=== PATIENT | female | born 1945 | race Caucasian/White ===

== ENCOUNTER 2018-10-06 16:28 | Inpatient (IN) | payer MEDICARE, BC ==
[2018-10-06] MEDS ORDERED: Piperacillin/Tazobactam 3.375 GM in Sodium Chloride 0.9% 50 ML IV ONE (17:15)
[2018-10-06] MEDS ORDERED: Rocuronium 50 MG/5 ML Vial IV ONE (18:00)
[2018-10-06] MEDS ORDERED: Succinylcholine 200 MG/10 ML MDV IV ONE (18:00)
[2018-10-06] MEDS ORDERED: Ketamine 500 mg/10 ML MDV IV ONE (18:00)
[2018-10-06] MEDS ORDERED: Midazolam 1 MG/ML 2 ML SDV IV ONE (18:00)
[2018-10-06] MEDS ORDERED: Propofol 200 MG/20 ML SDV IV ONE (18:00)
[2018-10-06] MEDS ORDERED: Lidocaine 2% 100 MG/5 ML Syringe IVPUSH ONE (18:00)
[2018-10-06] MEDS ORDERED: Ondansetron 4 MG/2 ML SDV IVPUSH ONE (18:00)
[2018-10-06] MEDS ORDERED: Sugammadex Sodium 200 MG/2 ML VIAL IV ONE (18:00)
[2018-10-06] MEDS ORDERED: Dexmedetomidine 200 MCG/2 ML SDV IV ONE (18:00)
[2018-10-06] MEDS ORDERED: Lactated Ringers 1,000 ML IV ONE (18:00)
[2018-10-06] MEDS ORDERED: Ketorolac 30 MG/ML SDV IVPUSH ONE (18:00)
[2018-10-06] MEDS ORDERED: fentaNYL 100 MCG/2 ML SDV IV ONE (18:00)
--- NOTE | 2018-10-06 18:06 | PREOP ---
ADMISSION DATE: 10/06/2018 HISTORY OF PRESENT ILLNESS: This 73-year-old female was seen in the emergency room at the request of Dunia Pemberton, who was seeing her in Urgent Care today. The patient presents with severe abdominal pain and not feeling well for the past few days. She was sent over for CT scan of the abdomen and was found to have an incarcerated left inguinal hernia with evidence of small bowel obstruction and ascites. I had her sent to the emergency room for further evaluation. It was also noted on the CT scan that she does have a suspicious spiculated lesion in her left lung that will need to be evaluated in the future. The patient states that she did have some diarrhea 4 or 5 days ago and 4 days ago started having some vomiting. She has not eaten since that time and only had a milkshake yesterday. Has not been making much urine. Denies fever, sweats, or chills. Last bowel movement was a few days ago. She complains of diffuse abdominal pain. She is on chronic narcotics, so it is difficult to assess her pain. PAST MEDICAL HISTORY: Reviewed and long and complicated. She has nonhealing leg ulcers from peripheral vascular disease and vasculitis. She does smoke. She has stents in her right femoral artery. She is on a COAT opioid agreement plan because of her chronic pains. She is also treated for rheumatoid arthritis and cervical myelopathy. MEDICATIONS: Reviewed. She does take: 1. Prednisone 10 mg daily. 2. Methotrexate in addition to many other medications. ALLERGIES: Medical allergies are none. REVIEW OF SYSTEMS: GENERAL: The patient denies fever, sweats, or chills. GASTROINTESTINAL: As above. GENITOURINARY: Denies any urinary symptoms. MUSCULOSKELETAL: Chronic pain in her legs as noted above. She is unable to have sequential compression stockings placed in the perioperative period and will likely start Lovenox tomorrow. PHYSICAL EXAMINATION: GENERAL: Reveals a pleasant lady who appears chronically ill, but in no acute distress. Her skin color is slightly dusky. VITAL SIGNS: Her oxygen saturation is good. Vitals are good. She is afebrile. LUNGS: Clear, but distant. HEART: Regular rate and rhythm. ABDOMEN: Soft and flat, but when I try to push in her left inguinal region, where there is a bulging, she has exquisite tenderness, and I am unable to try to reduce this. I suspect this may be ischemic or necrotic since it has been probably there for at least 3 to 4 days. ASSESSMENT: Small bowel obstruction secondary to incarcerated left inguinal hernia. PLAN: Findings are reviewed with the patient and recommend proceeding with surgery immediately since I am concerned about ischemic or necrotic small bowel. I will attempt this through an inguinal incision to check the viability of the bowel. This may require laparotomy with bowel resection. The patient is understanding and consents to proceed. She understands that she is high risk because of her multiple medical problems and the risks and complications of bleeding, infection, anesthesia, cardiopulmonary issues, prolonged ventilation, anastomotic leakage, and incision healing problems were all reviewed and informed consent obtained. /[id number] GIORGIO/CAROLINE
--- NOTE | 2018-10-06 19:37 | PCM.OPNOTE ---
- General Post-Op/Procedure Note Date of Surgery/Procedure: 10/06/18 Operative Procedure(s): L Femoral Hernia Repair with mesh, incarcerated Findings: Dark beefy loop of small bowel Pre Op Diagnosis: SBO secondary to incarcerated ing hernia Post-Op Diagnosis: Same Anesthesia Technique: General ET Tube Primary Surgeon: Zhao Sheridan Anesthesia Provider: Sierra Munoz EBL in mLs: 10 Complications: None Condition: Good
[2018-10-06] MEDS: Lactated Ringers 1,000 ML IV SCH (21:05)
[2018-10-06] MEDS ORDERED: Enoxaparin 30 MG/0.3 ML Syringe ONE (21:57)
[2018-10-06] MEDS ORDERED: Piperacillin/Tazobactam 3.375 GM in Sodium Chloride 0.9% 50 ML IV SCH (23:00)
[2018-10-07] MEDS: Acetaminophen/HYDROcodone 325-5 MG Tab PO PRN ×5 (00:18→23:45)
[2018-10-07] MEDS: HYDROmorphone 2 MG/ML SDV IVPUSH PRN ×2 (00:47→05:21)
[2018-10-07] MEDS: Lactated Ringers 1,000 ML IV SCH ×2 (05:21→13:51)
--- NOTE | 2018-10-07 08:08 | OR ---
DATE OF OPERATION: 10/06/2018 SURGEON: Zhao Sheridan MD PREOPERATIVE DIAGNOSIS: Small-bowel obstruction secondary to an incarcerated left inguinal hernia. POSTOPERATIVE DIAGNOSIS: Small-bowel obstruction secondary to an incarcerated left femoral hernia. PROCEDURE: Left femoral hernia repair with mesh and reduction of strangulated hernia. ANESTHESIA: General. PROCEDURE IN DETAIL: The patient was brought to the operating room, where general endotracheal anesthesia was administered. The abdomen was prepped with ChloraPrep and draped sterilely. A time-out was performed. A left inguinal incision was made above the inguinal ligament and extended through the subcutaneous tissue. External fascia was identified and opened in line with the external ring. At that time, it became evident that the hernia was protruding below the inguinal ligament. Therefore, dissection continued on the femoral side of the ligament, and a 3 cm diameter hernia was dissected free from the surrounding subcutaneous tissue. I was able to get this to approximately 2.5 cm in size and then opened up the inguinal ligament and pushed the hernia and contents on the cephalad side for easier work. I did open the hernia sac, and a loop of small bowel with ascites fluid was present. This was beefy red. 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 There was no evidence of necrosis. Therefore, the small bowel contents were reduced back into the peritoneal cavity. 200 mL of clear yellowish ascites fluid was suctioned from the pelvis. The hernia sac was suture-ligated with 2-0 Vicryl suture ligature and the excess sac transected. A hernia repair was then done by cutting a piece of polypropylene mesh to approximately 2 x 4 inches. This was secured to the pubic tubercle with 0 Prolene. Several more interrupted sutures were used to secure the inferior edge to Primo's ligament. A transition stitch was made to the shelving edge of Poupart's ligament just medial to the femoral vein. After the inferior side was secured, the upper side was secured to the muscle, providing a tension-free repair. Excess mesh was trimmed and tucked beneath the external fascia. The ilioinguinal nerve had been identified, retracted cephalad, and protected during the procedure and was placed over the mesh without any tension. External fascia was closed with running 2-0 Vicryl. Subcutaneous tissue was irrigated and reapproximated with 4-0 Vicryl and skin closed with a running 4-0 Vicryl subcuticular suture. Benzoin and Steri-Strips were placed and a sterile dressing applied. The patient tolerated the procedure well. Estimated blood loss was 10 mL. She returned to Postanesthesia in stable condition. /[id number] GIORGIO/CAROLINE
--- NOTE | 2018-10-07 10:49 | PCM.SURGPN ---
- General Info Date of Service: 10/07/18 POD#: 1 Functional Status: Reports: Pain Controlled - Review of Systems General: Reports: No Symptoms Pulmonary: Reports: No Symptoms Gastrointestinal: Reports: Flatus. Denies: Abdominal Pain, Nausea, Vomiting - Patient Data Vitals - Most Recent: Last Vital Signs Temp 98.6 F 10/07/18 04:00 Pulse 87 10/07/18 04:00 Resp 17 10/07/18 04:00 BP 134/78 10/07/18 04:00 Pulse Ox 90 L 10/07/18 04:00 Weight - Most Recent: 43.091 kg I&O - Last 24 Hours: Intake & Output 10/06/18 10/07/18 10/07/18 22:59 06:59 14:59 Output Total 200 Balance -200 Lab Results Last 24 Hrs: Laboratory Results - last 24 hr 10/06/18 10/06/18 10/07/18 Range/Units 16:50 16:50 06:30 WBC 13.0 H (4.5-12.0) X10-3/uL RBC 4.42 (3.23-5.20) x10(6)uL Hgb 13.6 (11.5-15.5) g/dL Hct 40.6 (30.0-51.3) % MCV 92.0 (80-96) fL MCH 30.7 (27.7-33.6) pg MCHC 33.4 (32.2-35.4) g/dL RDW 13.5 (11.5-15.5) % Plt Count 510 H (125-369) X10(3)uL MPV 7.1 L (7.4-10.4) fL Add Manual Diff Yes Neutrophils % (Manual) 90 H (46-82) % Lymphocytes % (Manual) 5 L (13-37) % Monocytes % (Manual) 5 (4-12) % Sodium 137 138 (135-145) mmol/L Potassium 4.3 4.0 (3.5-5.3) mmol/L Chloride 97 L 100 (100-110) mmol/L Carbon Dioxide 31 30 (21-32) mmol/L BUN 17 15 (7-18) mg/dL Creatinine 0.6 0.6 (0.55-1.02) mg/dL Est Cr Clr Drug Dosing TNP 57.65 Estimated GFR (MDRD) > 60 > 60 (>60) BUN/Creatinine Ratio 28.3 H 25.0 H (9-20) Glucose 103 83 (80-116) mg/dL Calcium 9.3 8.8 (8.6-10.2) mg/dL Total Bilirubin 0.4 (0.1-1.3) mg/dL AST 16 (5-25) IU/L ALT 15 (12-36) U/L Alkaline Phosphatase 74 (56-112) IU/L Total Protein 6.8 (6.0-8.0) g/dL Albumin 2.7 L (3.2-4.6) g/dL Globulin 4.1 g/dL Albumin/Globulin Ratio 0.7 Med Orders - Current: Current Medications Hydrocodone Bitart/Acetaminophen ([place] 325-5 Mg) 1 tab PO Q4H PRN PRN Reason: Pain (mild 1-3) Last Admin: 10/07/18 06:30 Dose: 1 tab Enoxaparin Sodium (Lovenox) 30 mg SUBCUT Q24H HERBIE Hydromorphone HCl (Dilaudid) 1 mg IVPUSH Q1H PRN PRN Reason: Pain (moderate 4-6) Last Admin: 10/07/18 05:21 Dose: 1 mg Lactated Ringer's (Ringers, Lactated) 1,000 mls @ 50 mls/hr IV ASDIRECTED HERBIE Last Admin: 10/07/18 05:21 Dose: 125 mls/hr Discontinued Medications Enoxaparin Sodium (Lovenox) Confirm Administered Dose 30 mg .ROUTE .STK-MED ONE Stop: 10/06/18 21:58 Last Admin: 10/06/18 23:46 Dose: Not Given Piperacillin Sod/Tazobactam (Sod 3.375 gm/ Sodium Chloride) 50 mls @ 100 mls/ hr IV Q6H HERBIE Piperacillin Sod/Tazobactam (Sod 3.375 gm/ Sodium Chloride) 50 mls @ 100 mls/ hr IV ONETIME ONE Stop: 10/06/18 17:44 Last Admin: 10/06/18 17:47 Dose: 100 mls/hr - Exam Wound/Incisions: Dressing Dry and Intact GI/Abdominal Exam: Soft, Non-Tender - Problem List Review Problem List Initiated/Reviewed/Updated: Yes - My Orders Last 24 Hours: Active Orders 24 hr Category Date Time Status Patient Status [ADT] Routine ADT 10/06/18 19:37 Active Oxygen Therapy [RC] PRN Care 10/06/18 19:37 Active Oxygen Therapy [RC] PRN Care 10/06/18 19:39 Active RT Incentive Spirometry [RC] Q2HWA Care 10/06/18 19:39 Active Remove [place] Catheter [Urinary Catheter Removal] [RC] Care 10/07/18 07:59 Active Per Unit Routine Up With Assistance [RC] ASDIRECTED Care 10/06/18 19:39 Active Vital Signs [RC] PER UNIT ROUTINE Care 10/06/18 19:39 Active Vital Signs [RC] Q4H Care 10/06/18 19:37 Active Clear Liquid Diet [DIET] Diet 10/07/18 Dinner Ordered Nothing Per Oral Diet [DIET] Diet 10/07/18 Breakfast Active Acetaminophen/HYDROcodone [[place] 325-5 MG] Med 10/06/18 19:39 Active 1 tab PO Q4H PRN Enoxaparin [Lovenox] Med 10/07/18 20:00 Active 30 mg SUBCUT Q24H HYDROmorphone [Dilaudid] Med 10/06/18 19:39 Active 1 mg IVPUSH Q1H PRN Lactated Ringers [Ringers, Lactated] 1,000 ml Med 10/06/18 19:45 Active IV ASDIRECTED Resuscitation Status Routine Resus Stat 10/06/18 19:37 Ordered Medication Orders Hydrocodone Bitart/Acetaminophen ([place] 325-5 Mg) 1 tab PO Q4H PRN PRN Reason: Pain (mild 1-3) Last Admin: 10/07/18 06:30 Dose: 1 tab Admin: 10/07/18 00:18 Dose: 1 tab Enoxaparin Sodium (Lovenox) 30 mg SUBCUT Q24H HERBIE Hydromorphone HCl (Dilaudid) 1 mg IVPUSH Q1H PRN PRN Reason: Pain (moderate 4-6) Last Admin: 10/07/18 05:21 Dose: 1 mg Admin: 10/07/18 00:47 Dose: 1 mg Lactated Ringer's (Ringers, Lactated) 1,000 mls @ 50 mls/hr IV ASDIRECTED HERBIE Last Admin: 10/07/18 05:21 Dose: 125 mls/hr Infusion: 10/07/18 05:05 Dose: 125 mls/hr Admin: 10/06/18 21:05 Dose: 125 mls/hr - Assessment Assessment (Free Text/Narrative):: Doing well - Plan Plan (Free Text/Narrative):: Start Clear Liquids D/C medina
[2018-10-07] MEDS ORDERED: Nicotine 21 MG/24 Hr Patch TRDERM SCH (12:30)
[2018-10-07] MEDS: Nicotine 14 MG/24 Hr Patch TRDERM SCH (13:39)
[2018-10-07] MEDS ORDERED: Enoxaparin 30 MG/0.3 ML Syringe SUBCUT SCH (20:00)
[2018-10-08] MEDS: Acetaminophen/HYDROcodone 325-5 MG Tab PO PRN ×4 (04:00→16:50)
[2018-10-08] MEDS: Nicotine 14 MG/24 Hr Patch TRDERM SCH (08:09)
[2018-10-08] MEDS ORDERED: Sodium Chloride 0.9% 10 ML Syringe FLUSH PRN (08:40)
--- NOTE | 2018-10-08 15:34 | PCM.SURGPN ---
- General Info Date of Service: 10/08/18 POD#: 2 Functional Status: Reports: Pain Controlled, Tolerating Diet, Ambulating, Urinating - Review of Systems General: Reports: No Symptoms Cardiovascular: Reports: No Symptoms Gastrointestinal: Reports: No Symptoms Genitourinary: Reports: No Symptoms - Patient Data Vitals - Most Recent: Last Vital Signs Temp 98.1 F 10/08/18 12:00 Pulse 88 10/08/18 12:00 Resp 18 10/08/18 12:00 BP 142/85 H 10/08/18 12:00 Pulse Ox 93 L 10/08/18 12:00 Weight - Most Recent: 43.091 kg I&O - Last 24 Hours: Intake & Output 10/08/18 10/08/18 10/08/18 06:59 14:59 22:59 Intake Total 440 167 Output Total 250 Balance 190 167 Med Orders - Current: Current Medications Hydrocodone Bitart/Acetaminophen ([place] 325-5 Mg) 1 tab PO Q4H PRN PRN Reason: Pain (mild 1-3) Last Admin: 10/08/18 12:23 Dose: 1 tab Enoxaparin Sodium (Lovenox) 30 mg SUBCUT Q24H HERBIE Last Admin: 10/07/18 21:00 Dose: 30 mg Hydromorphone HCl (Dilaudid) 1 mg IVPUSH Q1H PRN PRN Reason: Pain (moderate 4-6) Last Admin: 10/07/18 05:21 Dose: 1 mg Nicotine (Habitrol) 14 mg TRDERM DAILY [facility] Last Admin: 10/08/18 08:09 Dose: 14 mg Sodium Chloride (Saline Flush) 10 ml FLUSH ASDIRECTED PRN PRN Reason: flush Discontinued Medications Enoxaparin Sodium (Lovenox) Confirm Administered Dose 30 mg .ROUTE .STK-MED ONE Stop: 10/06/18 21:58 Last Admin: 10/06/18 23:46 Dose: Not Given Piperacillin Sod/Tazobactam (Sod 3.375 gm/ Sodium Chloride) 50 mls @ 100 mls/ hr IV Q6H HERBIE Piperacillin Sod/Tazobactam (Sod 3.375 gm/ Sodium Chloride) 50 mls @ 100 mls/ hr IV ONETIME ONE Stop: 10/06/18 17:44 Last Admin: 10/06/18 17:47 Dose: 100 mls/hr Lactated Ringer's (Ringers, Lactated) 1,000 mls @ 50 mls/hr IV ASDIRECTED [facility] Last Admin: 10/07/18 13:51 Dose: 125 mls/hr Nicotine (Habitrol) 21 mg TRDERM DAILY [facility] Last Admin: 10/07/18 12:58 Dose: Not Given - Exam Wound/Incisions: Healing Well, Dressing Dry and Intact GI/Abdominal Exam: Normal Bowel Sounds, Soft, Non-Tender - Problem List Review Problem List Initiated/Reviewed/Updated: Yes - My Orders Last 24 Hours: Active Orders 24 hr Category Date Time Status Clear Liquid Diet [DIET] Diet 10/07/18 Dinner Active Regular Diet [DIET] Diet 10/08/18 Lunch Active Enoxaparin [Lovenox] Med 10/07/18 20:00 Active 30 mg SUBCUT Q24H Sodium Chloride 0.9% [Saline Flush] Med 10/08/18 08:40 Active 10 ml FLUSH ASDIRECTED PRN Medication Orders Hydrocodone Bitart/Acetaminophen ([place] 325-5 Mg) 1 tab PO Q4H PRN PRN Reason: Pain (mild 1-3) Last Admin: 10/08/18 12:23 Dose: 1 tab Admin: 10/08/18 08:09 Dose: 1 tab Admin: 10/08/18 04:00 Dose: 1 tab Admin: 10/07/18 23:45 Dose: 1 tab Admin: 10/07/18 17:38 Dose: 1 tab Admin: 10/07/18 11:53 Dose: 1 tab Admin: 10/07/18 06:30 Dose: 1 tab Admin: 10/07/18 00:18 Dose: 1 tab Enoxaparin Sodium (Lovenox) 30 mg SUBCUT Q24H [facility] Last Admin: 10/07/18 21:00 Dose: 30 mg Hydromorphone HCl (Dilaudid) 1 mg IVPUSH Q1H PRN PRN Reason: Pain (moderate 4-6) Last Admin: 10/07/18 05:21 Dose: 1 mg Admin: 10/07/18 00:47 Dose: 1 mg Nicotine (Habitrol) 14 mg TRDERM DAILY [facility] Last Admin: 10/08/18 08:09 Dose: 14 mg Admin: 07/10/19 13:39 Dose: 14 mg Sodium Chloride (Saline Flush) 10 ml FLUSH ASDIRECTED PRN PRN Reason: flush - Assessment Assessment (Free Text/Narrative):: Doing well - Plan Plan (Free Text/Narrative):: Ready for discharge
--- NOTE | 2018-10-08 15:41 | PCM.DCSUM1 ---
Discharge Summary - Hospital Course Brief History: Presented to Urgent Care with Vomoiitng and abd pain. CT scan showed left incargcerated Inguinal Hernia with SBO. Also noted Lung nodule which need further eval. - Discharge Data Discharge Date: 10/08/18 Discharge Disposition: Home, Self-Care 01 Condition: Good - Patient Summary/Data Operative Procedure(s) Performed: L Femoral Hernia Repair with mesh, incarcerated Complications: none Recommended Follow-up Testing/Procedures: f/u with Dr Sheridan at 1130 Hospital Course: Post op did well, bowel function returned the following day. Started on liquids and tolerating po well. Incision healing well. - Patient Instructions Diet: Usual Diet as Tolerated Activity: No Strenuous Activities (for 2 weeks) Showering/Bathing: July Shower Wound/Incision Care: Keep Operative Site/Wound Site Clean and Dry - Discharge Plan Home Medications: Home Meds Carboxymethylcellulos/Glycerin [Refresh Optive] 1 drop EYEBOTH BID 07/26/15 [ History] Multivit-Min/FA/Lycopene/Lut [Centrum Silver Tablet] 1 each PO DAILY 07/26/15 [ History] Clopidogrel [Plavix] 75 mg PO DAILY 10/06/18 [History] Levothyroxine [Synthroid] 50 mcg PO GOODMAN 10/07/18 [History] Levothyroxine [Synthroid] 100 mcg PO [id number] 10/07/18 [History] Polyethylene Glycol 3350 [MiraLAX] 17 gm PO DAILY PRN 10/07/18 [History] oxyCODONE 5 mg PO Q4H PRN 10/07/18 [History] Patient Handouts: Incision Care, Adult, [id number] - Discharge Summary/Plan Comment DC Time >30 min.: No - Patient Data Vitals - Most Recent: Last Vital Signs Temp 98.1 F 10/08/18 12:00 Pulse 88 10/08/18 12:00 Resp 18 10/08/18 12:00 BP 142/85 H 10/08/18 12:00 Pulse Ox 93 L 10/08/18 12:00 Weight - Most Recent: 43.091 kg I&O - Last 24 hours: Intake & Output 10/08/18 10/08/18 10/08/18 06:59 14:59 22:59 Intake Total 440 167 Output Total 250 Balance 190 167 Med Orders - Current: Current Medications Hydrocodone Bitart/Acetaminophen ([place] 325-5 Mg) 1 tab PO Q4H PRN PRN Reason: Pain (mild 1-3) Last Admin: 10/08/18 12:23 Dose: 1 tab Enoxaparin Sodium (Lovenox) 30 mg SUBCUT Q24H [facility] Last Admin: 10/07/18 21:00 Dose: 30 mg Hydromorphone HCl (Dilaudid) 1 mg IVPUSH Q1H PRN PRN Reason: Pain (moderate 4-6) Last Admin: 10/07/18 05:21 Dose: 1 mg Nicotine (Habitrol) 14 mg TRDERM DAILY [facility] Last Admin: 10/08/18 08:09 Dose: 14 mg Sodium Chloride (Saline Flush) 10 ml FLUSH ASDIRECTED PRN PRN Reason: flush Discontinued Medications Enoxaparin Sodium (Lovenox) Confirm Administered Dose 30 mg .ROUTE .STK-MED ONE Stop: 10/06/18 21:58 Last Admin: 10/06/18 23:46 Dose: Not Given Piperacillin Sod/Tazobactam (Sod 3.375 gm/ Sodium Chloride) 50 mls @ 100 mls/ hr IV Q6H HERBIE Piperacillin Sod/Tazobactam (Sod 3.375 gm/ Sodium Chloride) 50 mls @ 100 mls/ hr IV ONETIME ONE Stop: 10/06/18 17:44 Last Admin: 10/06/18 17:47 Dose: 100 mls/hr Lactated Ringer's (Ringers, Lactated) 1,000 mls @ 50 mls/hr IV ASDIRECTED [facility] Last Admin: 10/07/18 13:51 Dose: 125 mls/hr Nicotine (Habitrol) 21 mg TRDERM DAILY [facility] Last Admin: 10/07/18 12:58 Dose: Not Given
[2018-10-08] MEDS ORDERED: Iopamidol 755 Mg/ML 75 ML Bottle IV ONE (16:13)
[2018-10-08 16:21] VITALS: BP 146/87; PULSE 94
--- NOTE | 2018-10-09 09:04 | CT ---
INDICATION: Followup pulmonary nodule seen on CT of the abdomen. CT CHEST WITHOUT AND WITH CONTRAST: Spiral 3.75 mm axial sections were obtained through the chest with sagittal and coronal reconstructions without and then with 47 mL Isovue 370 at 1.8 mL/second. This current examination is and is compared with 06/20/15 and 09/05/15 examinations of the abdomen, which included the lower chest. Total exam DLP = 321.84 mGy-cm. A nodular density is noted on axial image #10 in the left apical lung, which measures 8.2 mm and appears to be solid. It could represent an early granuloma or possibly a neoplasm. What appear to be apical infiltrates are noted bilaterally, which may be fibrotic in nature, although active disease cannot be entirely excluded - even neoplasia, since no old CT of the chest is available for comparison. Moderately severe bilateral apical scarring is noted, which extends into the more caudal upper lobe posterolaterally and bilaterally but more severely on the right than the left. The possibility of other than simply fibrotic change - even neoplastic process is difficult to exclude without comparison studies. Emphysematous changes are suggested additionally. An additional nodular density is noted on axial image #36, which measured 8.2 mm and could also represent an early granuloma or neoplastic process. On axial image #38 slightly more anteriorly, a very tiny nodule is noted in the right upper lobe. A 20 mm somewhat spiculated appearing mass is noted on multiple axial images, notably #70 in the lung base on the right anterolaterally in the middle lobe. Contrast enhancement is fairly prominent at this mass. The density increased from 9 Hounsfield units to 30 Hounsfield units after contrast enhancement. On the left at the lower lobe, there is a 25 x 64 mm mass, measured transversely and anterior-posteriorly respectively, with a density of 47.45 Hounsfield units pre-contrast and 74 Hounsfield units post-contrast. Significant contrast enhancement in both of these nodular areas is noted and is , therefore, suspicious for malignancy, although inflammatory change could also produce an enhancing mass. Both of these masses appear to have lower density centrally, raising question of process such as squamous cell carcinoma with central necrosis. This should be correlated clinically. Additional workup may be warranted, especially if findings do not suggest an inflammatory process - such as needle aspiration biopsy. Extending from this area of nodularity on the left at the lung base, there is pleural thickening extending from the lateral posterior aspect of the lung base medially to the aorta. This may represent the same process and could be metastatic and/or fibrotic in nature. The appearance further raises suspicion for process such as mesothelioma with the thickening of the pleural space; however, there is no significant calcification in this area to strongly suggest asbestosis. IMPRESSION: Suspicious areas of nodularity at the lung bases especially with additional nodules, which could represent granulomas or metastatic deposits. Additional workup may be warranted, such as needle aspiration biopsy to further evaluate this process. MTDD
== END 2018-10-08 17:05 | disposition home or self-care (01) | DRG 351 ==
LOC: FB.MS 16:28 → UNDOADMIN 16:28
PROVIDERS: ADMIT Surgery; ATTEND Surgery
PROC: 0YU80JZ Supplement Left Femoral Region with Synthetic Substitute, Open Approach (ICD-10-PCS; principal; 2018-10-06)
DX: K41.30 Unilateral femoral hernia, with obstruction, without gangrene, not specified as recurrent (principal); R18.8 Other ascites; L97.929 Non-pressure chronic ulcer of unspecified part of left lower leg with unspecified severity; L97.919 Non-pressure chronic ulcer of unspecified part of right lower leg with unspecified severity; R91.8 Other nonspecific abnormal finding of lung field; I73.9 Peripheral vascular disease, unspecified; Z79.891 Long term (current) use of opiate analgesic; Z79.899 Other long term (current) drug therapy
CPT/HCPCS: 00834-QZ; 36415; 71270; 80048; 80053; 85025; 94150; A9270-GY; J0330; J1170; J1650; J1885; J2001; J2250; J2405; J2543; J2704; J3010; J3490; J7050; J7120; Q9967

== ENCOUNTER 2019-06-23 11:05 | Inpatient (IN) | payer MEDICARE, BC ==
[2019-06-23] MEDS ORDERED: Nicotine Polacrilex 2 MG Loz Box BUCCAL PRN (12:54)
[2019-06-23] MEDS ORDERED: Triamcinolone Acetonide 0.1% Crm 15 GM Tube TOP PRN (12:54)
[2019-06-23] MEDS ORDERED: oxyCODONE 5 MG Tab PO PRN (12:54)
[2019-06-23] MEDS ORDERED: Nicotine Polacrilex 2 MG Gum CHEW PRN (12:54)
--- NOTE | 2019-06-23 12:59 | PCM.HP.2 ---
H&P History of Present Illness - General Date of Service: 06/23/19 Admit Problem/Dx: Admission Diagnosis/Problem Admission Diagnosis/Problem Rehabilitation therapy Source of Information: Patient History Limitations: Reports: No Limitations - History of Present Illness Initial Comments - Free Text/Narative: 74 y o female with recent BKA (Left) due to PVD. She has a h/o CAD,recent NSTEMI , HTN,tobacco abuse and hypothyroidism. She also has RA on [facility] steroid therapy.She is being admitted to for pain control,rehab. She does endorse left-sided chest pain that she's had for more than one week, she declined cardiology consultation while at [facility]. She was treated with 40 hours of heparin, beta daniela and aspirin. She uses nitroglycerin when necessary. LEFT LEG. Pain Score (Numeric/FACES): 8 - Related Data Allergies/Adverse Reactions: Allergies Allergy/AdvReac Type Severity Reaction Status Date / Time No Known Allergies Allergy Verified 10/06/18 16:07 Home Medications: Home Meds Carboxymethylcellulos/Glycerin [Refresh Optive] 1 drop EYEBOTH Q4H PRN 07/26/15 [History] Levothyroxine [Synthroid] 100 mcg PO DAILY@0600 10/07/18 [History] Polyethylene Glycol 3350 [MiraLAX] 17 gm PO DAILY 10/07/18 [History] oxyCODONE 5 mg PO Q6H PRN 10/07/18 [History] Acetaminophen [Tylenol Extra Strength] 1,000 mg PO TID 06/23/19 [History] Aspirin [Halfprin] 81 mg PO DAILY 06/23/19 [History] Gabapentin [Neurontin] 400 mg PO TID 06/23/19 [History] Labetalol [Normodyne] 100 mg PO BID 06/23/19 [History] Losartan [Cozaar] 100 mg PO DAILY 06/23/19 [History] Multivitamin [Daily Jose M] 1 tab PO DAILY 06/23/19 [History] Nicotine Polacrilex [Nicotine Gum] 2 mg CHEW Q1H PRN 06/23/19 [History] Nicotine Polacrilex [Nicotine Lozenge] 2 mg BUCCAL Q1H PRN 06/23/19 [History] Nicotine [Habitrol] 14 mg TOP DAILY 06/23/19 [History] Nitroglycerin [Nitrostat] 0.4 mg SL Q5M PRN 06/23/19 [History] Olopatadine [Pataday 0.2% Ophth Soln] 1 drop EYEBOTH DAILY 06/23/19 [History] Sulfamethoxazole/Trimethoprim [Bactrim Ds Tablet] 1 tab PO MOWEFR@0900 06/23/19 [History] Triamcinolone Acetonide [Triamcinolone Acetonide 0.1% Crm] 1 applic TOP BID PRN 06/23/19 [History] amLODIPine Besylate [Amlodipine Besylate] 10 mg PO DAILY 06/23/19 [History] predniSONE [Prednisone] 5 mg PO DAILY 06/23/19 [History] Past Medical History HEENT History: Reports: Cataract, Impaired Vision Cardiovascular History: Reports: High Cholesterol, Hypertension Respiratory History: Reports: SOB, Other (See Below) Other Respiratory History: CURRENTLY NEEDS 2 LITERS OF O2 SINCE SURGERY ON . MILD SOB WITH ANY ACTIVITY. 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 2 CM X 1.5 CM. VERY SMALL 1 CM X .5 CM JUST BELOW THE ABOVE STATED ONE. PT HAS BLACKENED SMALL AREA TO RIGHT GREAT TOE. PT HAS A AKA ON THE LEFT LEG. - Infectious Disease History Infectious Disease History: Reports: Chicken Pox, Measles, Mumps - Past Surgical History HEENT Surgical History: Reports: Eye Surgery, Other (See Below) Cardiovascular Surgical History: Reports: None Respiratory Surgical History: Reports: None GI Surgical History: Reports: Colonoscopy, EGD Female Surgical History: Reports: Breast Biopsy, Other (See Below) Other Female Surgeries/Procedures: LEFT BREAST BIOPSY PARTIAL HYSTERECTOMY Endocrine Surgical History: Reports: None Musculoskeletal Surgical History: Reports: None, Amputation, Other (See Below) Other Musculoskeletal Surgeries/Procedures:: SEE ABOVE NOTE. Dermatological Surgical History: Reports: Other (See Below) Social & Family History - Family History Family Medical History: Noncontributory - Caffeine Use Caffeine Use: Reports: Coffee H&P Review of Systems - Review of Systems: Review Of Systems: Comprehensive ROS is negative, except as noted in HPI. Exam - Exam Exam: See Below - Vital Signs Weight: 44.65 kg - Exam Quality Assessment: Supplemental Oxygen General: Alert HEENT: PERRLA Neck: Trachea Midline Lungs: Decreased Breath Sounds, Wheezing Cardiovascular: Regular Rate GI/Abdominal Exam: Normal Bowel Sounds, Soft (Female) Exam: Deferred Rectal (Female) Exam: Deferred Extremities: Other (Be lower knee amputation of the left. There is some ulcer about 2 similar size right leg) Skin: Warm, Wound Neurological: Cranial Nerves Intact Neuro Extensive - Mental Status: Alert, Oriented x3 Psychiatric: Alert, Normal Affect - Problem List (1) Hx of BKA SNOMED Code(s): 538109215, 364328173 ICD Code: Z89.519 - ACQUIRED ABSENCE OF UNSPECIFIED LEG BELOW KNEE Status: Acute Current Visit: Yes (2) Weakness SNOMED Code(s): 16450011 ICD Code: R53.1 - WEAKNESS Status: Acute Current Visit: Yes (3) NSTEMI (non-ST elevated myocardial infarction) SNOMED Code(s): 28048594 ICD Code: I21.4 - NON-ST ELEVATION (NSTEMI) MYOCARDIAL INFARCTION Status: Acute Current Visit: Yes (4) Hypothyroidism SNOMED Code(s): 06174033 ICD Code: E03.9 - HYPOTHYROIDISM, UNSPECIFIED Status: Chronic Current Visit: No Problem Details: Continue levothyroxine. Qualifiers: Hypothyroidism type: acquired Qualified Code(s): E03.9 - Hypothyroidism, unspecified (5) GERD (gastroesophageal reflux disease) SNOMED Code(s): 856508917 ICD Code: K21.9 - GASTRO-ESOPHAGEAL REFLUX DISEASE WITHOUT ESOPHAGITIS Status: Chronic Current Visit: No Problem Details: Continue protonix. (6) Hypertension SNOMED Code(s): 56208994 ICD Code: I10 - ESSENTIAL (PRIMARY) HYPERTENSION Status: Chronic Current Visit: No Problem Details: Continue lisinopril. Qualifiers: Hypertension type: essential hypertension Qualified Code(s): I10 - Essential (primary) hypertension (7) Rheumatoid arthritis SNOMED Code(s): 46094536 ICD Code: M06.9 - RHEUMATOID ARTHRITIS, UNSPECIFIED Status: Acute Current Visit: Yes (8) PAD (peripheral artery disease) SNOMED Code(s): 618448346 ICD Code: I73.9 - PERIPHERAL VASCULAR DISEASE, UNSPECIFIED Status: Acute Current Visit: Yes (9) Tobacco abuse SNOMED Code(s): 618102583 ICD Code: Z72.0 - TOBACCO USE Status: Acute Current Visit: Yes (10) COPD (chronic obstructive pulmonary disease) SNOMED Code(s): 46374552 ICD Code: J44.9 - CHRONIC OBSTRUCTIVE PULMONARY DISEASE, UNSPECIFIED Status : Acute Current Visit: Yes Qualifiers: COPD type: COPD with acute lower respiratory infection Qualified Code(s): J44.0 - Chronic obstructive pulmonary disease with (acute) lower respiratory infection (11) Leg ulcer SNOMED Code(s): 92464449, 759361958 ICD Code: L97.909 - NON-PRS CHRONIC ULC UNSP PRT OF UNSP LOW LEG W UNSP SEVERITY Status: Acute Current Visit: Yes Qualifiers: Laterality: right Problem List Initiated/Reviewed/Updated: Yes Orders Last 24hrs: Active Orders 24 hr Category Date Time Status Admission Status [Patient Status] [ADT] Routine ADT 06/23/19 11:18 Active Height and Weight [RC] WEEKLY Care 06/23/19 12:53 Ordered Intake and Output [RC] QSHIFT Care 06/23/19 12:53 Ordered Oxygen Therapy [RC] PRN Care 06/23/19 12:53 Ordered Up With Assistance [RC] ASDIRECTED Care 06/23/19 12:53 Ordered VTE/DVT Education [RC] Per Unit Routine Care 06/23/19 12:53 Ordered Vital Signs [RC] PER UNIT ROUTINE Care 06/23/19 12:53 Ordered OT Evaluation and Treatment [CONS] Routine Cons 06/23/19 12:53 Ordered PT Evaluation and Treatment [CONS] Routine Cons 06/23/19 12:53 Ordered Regular Diet [DIET] Diet 06/23/19 Lunch Active Acetaminophen [Tylenol Extra Strength] Med 06/23/19 14:00 Ordered 1,000 mg PO TID Aspirin [Halfprin] Med 06/24/19 09:00 Ordered 81 mg PO DAILY Carboxymethylcellulos/Glycerin [Refresh Optive] Med 06/23/19 12:54 Ordered 1 drop EYEBOTH Q4H PRN Gabapentin [Neurontin] Med 06/23/19 14:00 Ordered 400 mg PO TID Labetalol [Normodyne] Med 06/23/19 21:00 Ordered 100 mg PO BID Levothyroxine [Synthroid] Med 06/24/19 06:00 Ordered 100 mcg PO DAILY@0600 Losartan [Cozaar] Med 06/24/19 09:00 Ordered 100 mg PO DAILY Multivitamins [Tab-A-Jose M] Med 06/24/19 09:00 Ordered 1 tab PO DAILY Nicotine Polacrilex [Commit] Med 06/23/19 12:54 Ordered 2 mg BUCCAL Q1H PRN Nicotine Polacrilex [Nicorelief] Med 06/23/19 12:54 Ordered 2 mg CHEW Q1H PRN Nicotine [Habitrol] Med 06/24/19 09:00 Ordered 14 mg TOP DAILY Nitroglycerin [Nitrostat] Med 06/23/19 12:54 Ordered 0.4 mg SL Q5M PRN Olopatadine [Pataday 0.2% Ophth Soln] Med 06/24/19 09:00 Ordered 1 drop EYEBOTH DAILY Sulfamethoxazole/Trimethoprim [Septra DS] Med 06/25/19 09:00 Ordered 1 tab PO MOWEFR@0900 Triamcinolone Acetonide [Triamcinolone Acetonide 0.1% Med 06/23/19 12:54 Ordered Crm] 1 applic TOP BID PRN amLODIPine [Norvasc] Med 06/24/19 09:00 Ordered 10 mg PO DAILY oxyCODONE Med 06/23/19 12:54 Ordered 5 mg PO Q6H PRN polyethylene glycoL 3350 [MiraLAX] Med 06/24/19 09:00 Ordered 17 gm PO DAILY predniSONE Med 06/24/19 09:00 Ordered 5 mg PO DAILY Resuscitation Status Routine Resus Stat 06/23/19 12:53 Ordered Medication Orders Acetaminophen (Tylenol Extra Strength) 1,000 mg PO TID HERBIE Amlodipine Besylate (Norvasc) 10 mg PO DAILY [facility] Aspirin (Halfprin) 81 mg PO DAILY [facility] Carboxymethylcellulose (Refresh Optive) ml EYEBOTH Q4H PRN PRN Reason: Dry Eyes Gabapentin (Neurontin) 400 mg PO TID [facility] Levothyroxine Sodium (Synthroid) 100 mcg PO DAILY@0600 [facility] Losartan Potassium (Cozaar) 100 mg PO DAILY [facility] Multivitamins/Minerals/Vitamin C (Tab-A-Jose M) 1 tab PO DAILY [facility] Nicotine (Habitrol) 14 mg TOP DAILY [facility] Nicotine Polacrilex (Nicorelief) 2 mg CHEW Q1H PRN PRN Reason: tobacco cessation Nicotine Polacrilex (Commit) 2 mg BUCCAL Q1H PRN PRN Reason: tobacco cessation Nitroglycerin (Nitrostat) 0.4 mg SL Q5M PRN PRN Reason: Chest Pain Non-Formulary Medication (Labetalol [Normodyne]) 100 mg PO BID [facility] Non-Formulary Medication (Olopatadine [Pataday 0.2% Ophth Soln]) 1 drop EYEBOTH DAILY [facility] Oxycodone HCl (Oxycodone) 5 mg PO Q6H PRN PRN Reason: SEVERE PAIN Polyethylene Glycol (Miralax) 17 gm PO DAILY [facility] Prednisone (Prednisone) 5 mg PO DAILY [facility] Triamcinolone Acetonide (Triamcinolone Acetonide 0.1% Crm) gm TOP BID PRN PRN Reason: Rash Trimethoprim/Sulfamethoxazole (Septra Ds) 1 tab PO MOWEFR@0900 [facility] Assessment/Plan Comment:: Admit to swing bed. Consult physical and occupational therapy. Continue wound care as previously done at [facility]. Nitroglycerin when necessary for angina. Pain control by oral narcotics.
[2019-06-23] MEDS: Acetaminophen 500 MG Tab PO SCH ×2 (15:24→20:20)
[2019-06-23] MEDS: Gabapentin 400 MG Cap PO SCH ×2 (15:24→20:19)
[2019-06-23] MEDS: oxyCODONE 5 MG Tab PO PRN (18:38)
[2019-06-23] MEDS: Ketotifen 0.025% Ophth Soln 5 ML Bottle EYEBOTH SCH (20:14)
[2019-06-23] MEDS: Carboxymethylcellulose 0.5%/Glycerin 0.9% Ophth Soln 15 ML Bottle EYEBOTH PRN (20:17)
[2019-06-23] MEDS: Labetalol 200 MG Tab PO SCH (20:21)
[2019-06-24] MEDS: oxyCODONE 5 MG Tab PO PRN ×3 (02:45→18:43)
[2019-06-24] MEDS: Levothyroxine 100 MCG Tab PO SCH (05:14)
[2019-06-24] MEDS: Acetaminophen 500 MG Tab PO SCH ×3 (09:41→20:18)
[2019-06-24] MEDS: Labetalol 200 MG Tab PO SCH ×2 (09:42→20:18)
[2019-06-24] MEDS: Losartan 100 MG Tab PO SCH (09:42)
[2019-06-24] MEDS: predniSONE 5 MG Tab PO SCH (09:43)
[2019-06-24] MEDS: Polyethylene Glycol 3350 Powder 17 GM Packet PO SCH (09:43)
[2019-06-24] MEDS: amLODIPine 10 MG Tab PO SCH (09:43)
[2019-06-24] MEDS: Aspirin 81 MG Tab.EC PO SCH (09:43)
[2019-06-24] MEDS: Multivitamin Tab PO SCH (09:43)
[2019-06-24] MEDS: Nicotine 14 MG/24 Hr Patch TOP SCH (09:44)
[2019-06-24] MEDS: Carboxymethylcellulose 0.5%/Glycerin 0.9% Ophth Soln 15 ML Bottle EYEBOTH PRN (09:48)
[2019-06-24] MEDS: Ketotifen 0.025% Ophth Soln 5 ML Bottle EYEBOTH SCH (09:49)
[2019-06-24] MEDS: Gabapentin 400 MG Cap PO SCH ×3 (10:00→20:17)
[2019-06-24] MEDS ORDERED: Ketotifen 0.025% Ophth Soln 5 ML Bottle EYEBOTH PRN (11:00)
[2019-06-24] MEDS: Carboxymethylcellulose 0.5%/Glycerin 0.9% Ophth Soln 15 ML Bottle EYEBOTH SCH (20:18)
[2019-06-25] MEDS: oxyCODONE 5 MG Tab PO PRN ×4 (01:42→22:38)
[2019-06-25] MEDS: Levothyroxine 100 MCG Tab PO SCH (05:52)
[2019-06-25] MEDS: amLODIPine 10 MG Tab PO SCH (08:11)
[2019-06-25] MEDS: Carboxymethylcellulose 0.5%/Glycerin 0.9% Ophth Soln 15 ML Bottle EYEBOTH SCH ×2 (08:11→20:39)
[2019-06-25] MEDS: Aspirin 81 MG Tab.EC PO SCH (08:11)
[2019-06-25] MEDS: predniSONE 5 MG Tab PO SCH (08:11)
[2019-06-25] MEDS: Multivitamin Tab PO SCH (08:11)
[2019-06-25] MEDS: Polyethylene Glycol 3350 Powder 17 GM Packet PO SCH (08:12)
[2019-06-25] MEDS: Labetalol 200 MG Tab PO SCH ×2 (08:12→20:38)
[2019-06-25] MEDS: Losartan 100 MG Tab PO SCH (08:12)
[2019-06-25] MEDS: Acetaminophen 500 MG Tab PO SCH ×3 (08:12→20:38)
[2019-06-25] MEDS: Nicotine 14 MG/24 Hr Patch TOP SCH (08:13)
[2019-06-25] MEDS: Sulfamethoxazole/Trimethoprim 800-160 MG Tab PO SCH (08:18)
[2019-06-25] MEDS: Gabapentin 400 MG Cap PO SCH ×3 (08:18→20:38)
--- NOTE | 2019-06-25 14:22 | PN ---
DATE SEEN: 06/25/2019 SUBJECTIVE: Ely Aguila is a delightful 74-year-old female, admitted for postoperative care. Had an initial BKA amputation, mood issues complicated, underwent AKA amputation. She was admitted on 06/23/2019. Concerns about her heart race and discharged in reasonable health. Medications reviewed and appropriate. LABORATORY STUDIES: None recent. OBJECTIVE: VITAL SIGNS: 160/84, 77, 37.1, 18, and 95% on 1 L. GENERAL: Frail little lady, cooperative, conversant. NECK: Benign. Thyroid small. CHEST: On auscultation, clear in all lung [place], though increased AP diameter. Some coarse rhonchi, clear with cough. HEART: Distant heart sounds. Occasional ectopy. ABDOMEN: Benign. EXTREMITIES: BKA wound of lower extremity reviewed. ASSESSMENT: Complicating health issues with recent amputation of left lower leg due to peripheral vascular disease. PLAN: Complementary care and well being. Therapy in place. Plan to go home. /[id number] BARBARA/CAROLINE
[2019-06-26] MEDS: oxyCODONE 5 MG Tab PO PRN ×3 (05:54→18:22)
[2019-06-26] MEDS: Levothyroxine 100 MCG Tab PO SCH (05:55)
[2019-06-26] MEDS: Losartan 100 MG Tab PO SCH (08:04)
[2019-06-26] MEDS: Nicotine 14 MG/24 Hr Patch TOP SCH (08:04)
[2019-06-26] MEDS: Polyethylene Glycol 3350 Powder 17 GM Packet PO SCH (08:04)
[2019-06-26] MEDS: Gabapentin 400 MG Cap PO SCH ×3 (08:04→20:37)
[2019-06-26] MEDS: Aspirin 81 MG Tab.EC PO SCH (08:05)
[2019-06-26] MEDS: Labetalol 200 MG Tab PO SCH ×2 (08:05→20:34)
[2019-06-26] MEDS: Carboxymethylcellulose 0.5%/Glycerin 0.9% Ophth Soln 15 ML Bottle EYEBOTH SCH ×2 (08:06→20:37)
[2019-06-26] MEDS: predniSONE 5 MG Tab PO SCH (08:06)
[2019-06-26] MEDS: amLODIPine 10 MG Tab PO SCH (08:06)
[2019-06-26] MEDS: Acetaminophen 500 MG Tab PO SCH ×3 (08:07→20:33)
[2019-06-26] MEDS: Multivitamin Tab PO SCH (08:07)
[2019-06-27] MEDS: oxyCODONE 5 MG Tab PO PRN ×4 (01:41→19:43)
[2019-06-27] MEDS: Levothyroxine 100 MCG Tab PO SCH (06:42)
[2019-06-27] MEDS: Polyethylene Glycol 3350 Powder 17 GM Packet PO SCH (08:14)
[2019-06-27] MEDS: Acetaminophen 500 MG Tab PO SCH ×3 (08:24→21:44)
[2019-06-27] MEDS: Losartan 100 MG Tab PO SCH (08:25)
[2019-06-27] MEDS: Nicotine 14 MG/24 Hr Patch TOP SCH (08:25)
[2019-06-27] MEDS: Labetalol 200 MG Tab PO SCH ×2 (08:25→21:44)
[2019-06-27] MEDS: Multivitamin Tab PO SCH (08:25)
[2019-06-27] MEDS: predniSONE 5 MG Tab PO SCH (08:25)
[2019-06-27] MEDS: Aspirin 81 MG Tab.EC PO SCH (08:25)
[2019-06-27] MEDS: Carboxymethylcellulose 0.5%/Glycerin 0.9% Ophth Soln 15 ML Bottle EYEBOTH SCH ×2 (08:25→21:44)
[2019-06-27] MEDS: amLODIPine 10 MG Tab PO SCH (08:25)
[2019-06-27] MEDS: Gabapentin 400 MG Cap PO SCH ×3 (08:28→21:43)
--- NOTE | 2019-06-27 11:39 | PN ---
DATE SEEN: 06/27/2019 SUBJECTIVE: Ely Aguila is a 74-year-old female in swing bed. Had an initially below-knee and then an above-knee amputation of left lower extremity. Doing well. Pain appears to be controlled. Appetite has been good and she has been in good spirits. LABORATORY STUDIES: None. We will check CBC today. PHYSICAL EXAMINATION: VITAL SIGNS: Stable. 139/73, pulse of 80, and 96% on 1 L. GENERAL: Appears comfortable. NECK: Benign. Thyroid small. CHEST: Clear. HEART: Regular. ABDOMEN: Benign. EXTREMITIES: Dressing intact to left lower extremity. ASSESSMENT: Above-knee amputation of the left leg. PLAN: We will check a CBC just for stability of hemoglobin. PT/OT involved. /[id number] BARBARA/CAROLINE
[2019-06-27] MEDS: traMADol 50 MG Tab PO PRN ×2 (14:58→22:45)
[2019-06-27] MEDS ORDERED: Remove Patch*NICOTINE PATCH TRDERM SCH (21:00)
[2019-06-28] MEDS: oxyCODONE 5 MG Tab PO PRN (03:26)
[2019-06-28] MEDS: traMADol 50 MG Tab PO PRN ×2 (06:30→12:48)
[2019-06-28] MEDS: Levothyroxine 100 MCG Tab PO SCH (06:34)
--- NOTE | 2019-06-28 08:42 | PN ---
DATE SEEN: 06/26/2019 SUBJECTIVE: Ely Aguila is a 74-year-old female, in swing bed. Had an above-knee amputation of left lower extremity. Has some venous ulcers and vascular insufficiency, contralateral right leg. Pain controlled. PHYSICAL EXAMINATION: Wound was examined, edges well apposed. [place] in good position. ASSESSMENT: Above-knee amputation of the left leg. PLAN: Medications, treatment, and care on board. PT actively involved. /[id number] /CAROLINE
[2019-06-28] MEDS: Aspirin 81 MG Tab.EC PO SCH (08:49)
[2019-06-28] MEDS: amLODIPine 10 MG Tab PO SCH (08:49)
[2019-06-28] MEDS: Gabapentin 400 MG Cap PO SCH ×3 (08:49→20:08)
[2019-06-28] MEDS: Labetalol 200 MG Tab PO SCH ×2 (08:50→20:12)
[2019-06-28] MEDS: predniSONE 5 MG Tab PO SCH (08:50)
[2019-06-28] MEDS: Losartan 100 MG Tab PO SCH (08:51)
[2019-06-28] MEDS: Nicotine 14 MG/24 Hr Patch TOP SCH (08:51)
[2019-06-28] MEDS: Polyethylene Glycol 3350 Powder 17 GM Packet PO SCH (08:53)
[2019-06-28] MEDS: Acetaminophen 500 MG Tab PO SCH ×3 (08:56→20:10)
[2019-06-28] MEDS: Multivitamin Tab PO SCH (08:57)
[2019-06-28] MEDS: Carboxymethylcellulose 0.5%/Glycerin 0.9% Ophth Soln 15 ML Bottle EYEBOTH SCH ×2 (08:57→20:06)
[2019-06-28] MEDS: Sulfamethoxazole/Trimethoprim 800-160 MG Tab PO SCH (08:57)
[2019-06-28] MEDS ORDERED: Nicotine 14 MG/24 Hr Patch TRDERM SCH (09:00)
[2019-06-28] MEDS: oxyCODONE ER 20 MG TAB.ER PO SCH ×2 (10:42→20:09)
--- NOTE | 2019-06-28 11:38 | PN ---
DATE SEEN: 06/28/2019 SUBJECTIVE: Ely Aguila is a 74-year-old female in swing bed. Had [id number]-[id number] amputation. In today for rehab purposes. The pain appears to be a vacillating issue. Has been on short-acting. We will switch the OxyContin 20 mg b.i.d., Ultram 50 q.6 hours p.r.n. for breakthrough pain. Dressing change planned for today. OBJECTIVE: VITAL SIGNS: 146/76, 75, respirations 18. GENERAL: Appears comfortable. Speech is a bit gravelly. NECK: Benign. CHEST: Clear in all lung carlton. HEART: No ectopy or murmur. ABDOMEN: Benign. EXTREMITIES: Wound dressed in left lower extremity. ASSESSMENT: Csxkq-tow-zeqs amputation, left leg. PLAN: Treatment and care in place. /[id number] [id number] /CAROLINE
[2019-06-29] MEDS: traMADol 50 MG Tab PO PRN ×3 (01:56→19:05)
[2019-06-29] MEDS: Levothyroxine 100 MCG Tab PO SCH (05:17)
[2019-06-29] MEDS: Losartan 100 MG Tab PO SCH (08:47)
[2019-06-29] MEDS: Nicotine 14 MG/24 Hr Patch TOP SCH (08:48)
[2019-06-29] MEDS: Polyethylene Glycol 3350 Powder 17 GM Packet PO SCH (08:50)
[2019-06-29] MEDS: Aspirin 81 MG Tab.EC PO SCH (08:50)
[2019-06-29] MEDS: Gabapentin 400 MG Cap PO SCH ×3 (08:53→20:52)
[2019-06-29] MEDS: Labetalol 200 MG Tab PO SCH ×2 (08:53→20:25)
[2019-06-29] MEDS: oxyCODONE ER 20 MG TAB.ER PO SCH ×2 (08:54→20:52)
[2019-06-29] MEDS: amLODIPine 10 MG Tab PO SCH (08:54)
[2019-06-29] MEDS: predniSONE 5 MG Tab PO SCH (08:54)
[2019-06-29] MEDS: Multivitamin Tab PO SCH (08:55)
[2019-06-29] MEDS: Acetaminophen 500 MG Tab PO SCH ×3 (08:55→20:25)
[2019-06-29] MEDS: Carboxymethylcellulose 0.5%/Glycerin 0.9% Ophth Soln 15 ML Bottle EYEBOTH SCH ×2 (08:55→20:53)
--- NOTE | 2019-06-29 12:31 | PN ---
DATE SEEN: 06/29/2019 SUBJECTIVE: Ely Aguila is a 74-year-old, female, admitted. Underwent a left AK amputation. Followup appointment planned. [place] may be removed today. The pain appears to be controlled with her OxyContin 20 mg b.i.d. and p.r.n. tramadol. Had some left sided chest wall pain. Worse with deep breath, cough. OBJECTIVE: NECK: Benign. No JVD. CHEST: Clear in all lung carlton. HEART: No ectopy or murmur. ABDOMEN: Benign. Intercostal pain, left side. ASSESSMENT: 1. Intercostal work-related chest wall pain. 2. Amputation, satisfactory. PLAN: All looks well. No changes. Pain pills on board. /[id number] BARBARA/CAROLINE
[2019-06-30] MEDS: traMADol 50 MG Tab PO PRN ×4 (01:11→16:13)
[2019-06-30] MEDS: Levothyroxine 100 MCG Tab PO SCH (05:29)
[2019-06-30] MEDS: oxyCODONE ER 20 MG TAB.ER PO SCH ×2 (09:03→20:29)
[2019-06-30] MEDS: Gabapentin 400 MG Cap PO SCH ×3 (09:03→20:31)
[2019-06-30] MEDS: Losartan 100 MG Tab PO SCH (09:06)
[2019-06-30] MEDS: Aspirin 81 MG Tab.EC PO SCH (09:08)
[2019-06-30] MEDS: Nicotine 14 MG/24 Hr Patch TOP SCH (09:08)
[2019-06-30] MEDS: Polyethylene Glycol 3350 Powder 17 GM Packet PO SCH (09:09)
[2019-06-30] MEDS: Labetalol 200 MG Tab PO SCH ×2 (09:11→20:31)
[2019-06-30] MEDS: amLODIPine 10 MG Tab PO SCH (09:11)
[2019-06-30] MEDS: predniSONE 5 MG Tab PO SCH (09:12)
[2019-06-30] MEDS: Carboxymethylcellulose 0.5%/Glycerin 0.9% Ophth Soln 15 ML Bottle EYEBOTH SCH ×2 (09:12→20:31)
[2019-06-30] MEDS: Acetaminophen 500 MG Tab PO SCH ×3 (09:13→20:30)
[2019-06-30] MEDS: Multivitamin Tab PO SCH (09:13)
[2019-06-30] MEDS: Sulfamethoxazole/Trimethoprim 800-160 MG Tab PO SCH (09:13)
[2019-06-30] MEDS ORDERED: Iopamidol 755 Mg/ML 100 ML Bottle IV ONE (11:43)
--- NOTE | 2019-06-30 13:46 | CT ---
INDICATION: Short of breath, left sided chest pain, question pulmonary embolus. COMPUTERIZED TOMOGRAPHY ANGIOGRAPHY OF THE CHEST WITH CONTRAST: Spiral 1.25 mm axial sections were obtained through the chest with sagittal and coronal reconstructions utilizing 60 mL Isovue 370 at 3 mL per second, 06/30/19, and compared with previous examination of 10/08/18. Total exam DLP was 163.99 mGy-cm. Minimal calcifications are noted in the arch of the aorta. No mediastinal mass was seen. Coronary artery calcifications are noted with the heart appearing slightly increased in size compared with the previous examination - near the upper limits of normal in size. No pericardial effusion was seen. Low density lesion in the right lobe of the liver anteriorly again noted unchanged likely benign in origin. Upper abdominal organs included on the study were otherwise unremarkable except to note calcifications in the aorta. There is a mild degree of pericardial thickening which is less prominent than on the previous study. No evidence of pulmonary emboli could be identified. Evidence of moderately severe emphysematous changes is noted. Apical scarring is again noted very similar from right to left. Severe emphysematous changes are again noted bilaterally and may be somewhat progressive. A number of subpleural densities are noted compatible with fibrotic changes. At the right lung base there is consolidated lung which may be on the basis of pneumonia and possibly atelectasis, although pneumonia is favored. Pleural effusion is again noted at both lung bases and is more prominent bilaterally than on the previous study, moderately larger on the right than left. There are some nodular appearing pleural areas of density which most likely are fibrotic in nature as they do not appear to be increased in size grossly compared with the previous examination. Suggestion of consolidated lung at the left lung base is less prominent than on the right. Findings are compatible with bibasilar pneumonia and pleuritis, but should be correlated clinically. Pulmonary infarctions are felt to be less likely as no evidence of pulmonary emboli could be identified. IMPRESSION: 1. Bibasilar pleuroparenchymal changes which may be on the basis of pneumonia and pleuritis, and overall appear to be slightly increased in severity compared with the previous examination, especially the right pleural effusion and consolidated lung at the right lower lobe. 2. No evidence of pulmonary embolus. 3. Severe emphysematous changes. 4. Probable ASHD. 5. ASD. 6. Stable low density lesion anterior right lobe of the liver seen on axial image 405 of series 2. 7. No gross evidence of malignancy is demonstrated. Report was called to Dr. Peña's voice mail at approximately 1246 hours in part. [facility]
--- NOTE | 2019-06-30 13:55 | CR ---
INDICATION: Chest pain, short of breath. CHEST TWO VIEWS: PA and lateral views of the chest were obtained 06/30/19 and compared with 06/21/[address] of the chest 10/08/18. The heart appears to be at the upper limits of normal in size. The aorta is tortuous with calcification in the arch. Bibasilar pleuroparenchymal changes are noted compatible with bibasilar pneumonia and pleuritis. However, compared with the 06/21/19 chest x-ray there is an appearance of decreased infiltration and effusion at the right lower lung field compatible with resolving pneumonia in that area. No other change or new acute process was identified. A severe compression fracture is noted at the mid thoracic spine which is completely new compared with the previous CT scan of 10/08/18. Therefore, this could represent an acute compression fracture and should be correlated clinically. Findings were also compatible with COPD. IMPRESSION: 1. Bibasilar pleuroparenchymal changes but with resolving right lower lung field pneumonia and pleuritis suggested. 2. Compression fracture in mid thoracic spine indeterminate age, could be acute - not present 10/08/18. 3. COPD. 4. ASHD - possibly mildly progressive. 5. Diminished bone density suggesting osteoporosis - correlate clinically. MTDD
[2019-07-01] MEDS: traMADol 50 MG Tab PO PRN ×4 (03:26→18:04)
[2019-07-01] MEDS: Levothyroxine 100 MCG Tab PO SCH (05:20)
[2019-07-01] MEDS: oxyCODONE ER 20 MG TAB.ER PO SCH ×2 (09:22→20:40)
[2019-07-01] MEDS: Gabapentin 400 MG Cap PO SCH ×3 (09:22→20:41)
[2019-07-01] MEDS: Polyethylene Glycol 3350 Powder 17 GM Packet PO SCH (09:24)
[2019-07-01] MEDS: predniSONE 5 MG Tab PO SCH (09:25)
[2019-07-01] MEDS: Losartan 100 MG Tab PO SCH (09:25)
[2019-07-01] MEDS: Aspirin 81 MG Tab.EC PO SCH (09:25)
[2019-07-01] MEDS: Acetaminophen 500 MG Tab PO SCH ×3 (09:26→20:43)
[2019-07-01] MEDS: Multivitamin Tab PO SCH (09:26)
[2019-07-01] MEDS: Labetalol 200 MG Tab PO SCH ×2 (09:26→20:42)
[2019-07-01] MEDS: amLODIPine 10 MG Tab PO SCH (09:26)
[2019-07-01] MEDS: Nicotine 14 MG/24 Hr Patch TOP SCH (09:27)
[2019-07-01] MEDS: Carboxymethylcellulose 0.5%/Glycerin 0.9% Ophth Soln 15 ML Bottle EYEBOTH SCH ×2 (10:53→20:42)
--- NOTE | 2019-07-01 12:01 | PN ---
DATE SEEN: 07/01/2019 SUBJECTIVE: Ely Aguila is a 74-year-old female in for long-term swing bed care. Had an [id number]-[id number]-esxc amputation of the left leg. Pain appears to be reasonably well controlled. She had some recent intercostal rib pain. Chest x-ray unremarkable. CT-PE revealed PE. Appears to be intercostal. Rib x-rays will be performed. OBJECTIVE: GENERAL: Appears comfortable. NECK: Benign. Thyroid small. CHEST: Clear. Intercostal pain on the left side. HEART: Regular without ectopy or murmur. ABDOMEN: Benign. EXTREMITIES: Amputation site well dressed. PLAN: We will obtain rib x-rays. /[id number] BARBARA/CAROLINE
[2019-07-02] MEDS: traMADol 50 MG Tab PO PRN ×5 (01:13→22:05)
[2019-07-02] MEDS: Levothyroxine 100 MCG Tab PO SCH (05:23)
[2019-07-02] MEDS: oxyCODONE ER 20 MG TAB.ER PO SCH ×2 (08:40→20:09)
[2019-07-02] MEDS: Aspirin 81 MG Tab.EC PO SCH (08:43)
[2019-07-02] MEDS: predniSONE 5 MG Tab PO SCH (08:44)
[2019-07-02] MEDS: Losartan 100 MG Tab PO SCH (08:44)
[2019-07-02] MEDS: Labetalol 200 MG Tab PO SCH ×2 (08:44→20:10)
[2019-07-02] MEDS: amLODIPine 10 MG Tab PO SCH (08:45)
[2019-07-02] MEDS: Nicotine 14 MG/24 Hr Patch TOP SCH (08:46)
[2019-07-02] MEDS: Carboxymethylcellulose 0.5%/Glycerin 0.9% Ophth Soln 15 ML Bottle EYEBOTH SCH ×2 (08:48→20:11)
[2019-07-02] MEDS: Acetaminophen 500 MG Tab PO SCH ×3 (08:49→20:11)
[2019-07-02] MEDS: Multivitamin Tab PO SCH (08:49)
[2019-07-02] MEDS: Sulfamethoxazole/Trimethoprim 800-160 MG Tab PO SCH (08:49)
[2019-07-02] MEDS: Polyethylene Glycol 3350 Powder 17 GM Packet PO SCH (08:50)
[2019-07-02] MEDS: Gabapentin 400 MG Cap PO SCH ×3 (08:52→20:09)
[2019-07-02] MEDS: Ondansetron 4 MG Tab.DIS PO PRN (09:37)
[2019-07-03] MEDS: Acetaminophen/oxyCODONE 325-5 MG Tab PO PRN (04:15)
[2019-07-03] MEDS: Levothyroxine 100 MCG Tab PO SCH ×2 (04:16→06:18)
[2019-07-03] MEDS: oxyCODONE ER 20 MG TAB.ER PO SCH (08:01)
[2019-07-03] MEDS: Losartan 100 MG Tab PO SCH (08:02)
[2019-07-03] MEDS: Aspirin 81 MG Tab.EC PO SCH (08:03)
[2019-07-03] MEDS: Gabapentin 400 MG Cap PO SCH ×3 (08:05→20:05)
[2019-07-03] MEDS: Multivitamin Tab PO SCH (08:05)
[2019-07-03] MEDS: Polyethylene Glycol 3350 Powder 17 GM Packet PO SCH (08:05)
[2019-07-03] MEDS: Carboxymethylcellulose 0.5%/Glycerin 0.9% Ophth Soln 15 ML Bottle EYEBOTH SCH ×2 (08:06→20:06)
[2019-07-03] MEDS: Acetaminophen 500 MG Tab PO SCH ×3 (08:06→20:06)
[2019-07-03] MEDS: predniSONE 5 MG Tab PO SCH (08:06)
[2019-07-03] MEDS: Labetalol 200 MG Tab PO SCH ×2 (08:07→20:06)
[2019-07-03] MEDS: amLODIPine 10 MG Tab PO SCH (08:08)
[2019-07-03] MEDS: Nitroglycerin 0.4 MG Tab.SL SL PRN ×2 (10:17→10:22)
--- NOTE | 2019-07-03 10:21 | PN ---
DATE SEEN: 07/03/2019 HISTORY: Ms. Aguila is a 74-year-old woman with severe COPD; severe peripheral vascular disease; continued smoking; and coronary artery disease, status post non-STEMI. The patient was hospitalized at [facility] in [place] on 06/10/2019 for a nonhealing left foot ulcer due to her peripheral vascular disease. She had a BKA that resulted in a nonhealing stump and eventually was converted to an AKA on the left lower extremity. She has been in swing bed at [facility] in [place] since 06/23/2019 recuperating. While she was hospitalized in [place], she had an episode of severe shortness of breath. Testing revealed she had a non-STEMI, but coronary artery intervention was declined by the patient at that time. The patient has not been on home oxygen, but since hospitalization, has been on 1 L nasal cannula oxygen and recently was increased to 2 L to keep her saturations up in the low 90s. The patient has been on OxyContin 20 mg b.i.d. and Percocet. She is asking for her Percocet every 2 to 3 hours because of pain. She states that when she was in [place], she heard a pop when she was being lifted and has had right-sided chest wall pain ever since that. She is taking the pain medications for her chest pain, much more so than for her stump pain. She denies nausea or vomiting. She states her breathing is chronically short of breath, but nothing acutely now. Because of her dyspnea, she did undergo a CT angiogram of the chest that was negative for pulmonary embolus. X-ray and CT of the chest did not document any rib fractures, but she did have a midthoracic compression fracture. PHYSICAL EXAMINATION: GENERAL: The patient is examined in her bed in her room. She is somewhat groggy from narcotic, slightly nodding off during questioning. HEENT: Shows her mouth to be dry. LUNGS: Have distant breath sounds. No consolidation is heard. HEART: Regular without murmur or gallop heard. CHEST: Chest wall shows tender to palpation in the right lateral chest, right anterior chest, and some midthoracic area tenderness to palpation. ABDOMEN: Normal bowel sounds. Soft and nontender. EXTREMITIES: Left AKA stump shows roberto in place, mild ecchymosis, mild dull erythema. No drainage. Left lower extremity shows a nicely granulated-in 2 x 3.5 cm ulcer proximal to her lateral malleolus and pallor of the toes with slight thickened scab at the lateral side of her right great toenail. No acute inflammation, drainage, or obvious infection on the right. LABORATORY DATA: Last hemoglobin was 8.6. This was up from 8.2 when last measured during her [place] hospitalization. Creatinine 0.6. Electrolytes normal. ASSESSMENT: 1. Chest pain, question secondary to thoracic compression fracture versus occult rib fracture. 2. Coronary artery disease, status post recent zfb-AI-bygmsev elevation myocardial infarction, question contributing to the chest pain. 3. Severe peripheral vascular disease, status post left gokpd-spud-qlzjctkang, healing satisfactorily. 4. Severe chronic obstructive pulmonary disease, currently requiring oxygen. 5. Pain control. 6. Hypertension. 7. Hypothyroidism. 8. Continue smoking. 9. Long-term prednisone use due to rheumatoid arthritis and vasculitis. PLAN: We will change from OxyContin to MS Contin t.i.d. We will continue to provide palliative care measures for Ms. Aguila during her swing bed stay. /[id number] SRINI/CAROLINE
[2019-07-03] MEDS ORDERED: Alum Hydroxide/Mag Hydroxide 15 ML, Lidocaine 2% 15 ML PO ONE ×2 (10:23)
[2019-07-03] MEDS: Nicotine 14 MG/24 Hr Patch TOP SCH (11:02)
[2019-07-03] MEDS: Morphine 30 MG Tab.ER PO SCH ×2 (13:43→21:57)
[2019-07-03] MEDS: Nystatin Susp 100,000 Unit/ML 5 ML UD Cup PO SCH ×2 (13:44→20:05)
[2019-07-03] MEDS: Aluminum Hydroxide/Magnesium Hydroxide Susp 30 ML Cup PO PRN (18:15)
[2019-07-03] MEDS: Pantoprazole 40 MG Tab.CR PO SCH (18:40)
[2019-07-03] MEDS: Aluminum Hydroxide/Magnesium Hydroxide Susp 30 ML Cup PO SCH (20:05)
[2019-07-04] MEDS: Acetaminophen/oxyCODONE 325-5 MG Tab PO PRN ×2 (03:03→19:05)
[2019-07-04] MEDS: Morphine 30 MG Tab.ER PO SCH ×3 (06:25→22:11)
[2019-07-04] MEDS: Pantoprazole 40 MG Tab.CR PO SCH (06:26)
[2019-07-04] MEDS: Levothyroxine 100 MCG Tab PO SCH (06:26)
[2019-07-04] MEDS: Losartan 100 MG Tab PO SCH (08:43)
[2019-07-04] MEDS: Polyethylene Glycol 3350 Powder 17 GM Packet PO SCH (08:44)
[2019-07-04] MEDS: Gabapentin 400 MG Cap PO SCH ×3 (08:44→20:20)
[2019-07-04] MEDS: Nicotine 14 MG/24 Hr Patch TOP SCH (08:44)
[2019-07-04] MEDS: Labetalol 200 MG Tab PO SCH ×2 (08:44→20:21)
[2019-07-04] MEDS: Aspirin 81 MG Tab.EC PO SCH (08:44)
[2019-07-04] MEDS: predniSONE 5 MG Tab PO SCH (08:46)
[2019-07-04] MEDS: Carboxymethylcellulose 0.5%/Glycerin 0.9% Ophth Soln 15 ML Bottle EYEBOTH SCH ×2 (08:46→20:21)
[2019-07-04] MEDS: Acetaminophen 500 MG Tab PO SCH ×3 (08:47→20:21)
[2019-07-04] MEDS: Multivitamin Tab PO SCH (08:47)
[2019-07-04] MEDS: Nystatin Susp 100,000 Unit/ML 5 ML UD Cup PO SCH ×3 (08:58→20:20)
[2019-07-04] MEDS: amLODIPine 5 MG Tab PO SCH (08:58)
[2019-07-04] MEDS: Aluminum Hydroxide/Magnesium Hydroxide Susp 30 ML Cup PO PRN (08:59)
[2019-07-04] MEDS: Aluminum Hydroxide/Magnesium Hydroxide Susp 30 ML Cup PO SCH ×3 (08:59→20:20)
[2019-07-04] MEDS ORDERED: Magnesium Hydroxide 400 MG/5 ML Susp 30 ML Cup PO PRN (20:26)
[2019-07-05] MEDS: Acetaminophen/oxyCODONE 325-5 MG Tab PO PRN ×4 (00:56→21:05)
[2019-07-05] MEDS: Morphine 30 MG Tab.ER PO SCH ×3 (05:10→22:04)
[2019-07-05] MEDS: Levothyroxine 100 MCG Tab PO SCH (05:11)
[2019-07-05] MEDS: Pantoprazole 40 MG Tab.CR PO SCH (05:15)
[2019-07-05] MEDS: Acetaminophen 500 MG Tab PO SCH ×3 (08:36→21:12)
[2019-07-05] MEDS: Aspirin 81 MG Tab.EC PO SCH (08:43)
[2019-07-05] MEDS: Labetalol 200 MG Tab PO SCH ×2 (08:43→21:12)
[2019-07-05] MEDS: Gabapentin 400 MG Cap PO SCH ×3 (08:43→21:12)
[2019-07-05] MEDS: Multivitamin Tab PO SCH (08:43)
[2019-07-05] MEDS: Sulfamethoxazole/Trimethoprim 800-160 MG Tab PO SCH (08:43)
[2019-07-05] MEDS: Carboxymethylcellulose 0.5%/Glycerin 0.9% Ophth Soln 15 ML Bottle EYEBOTH SCH ×2 (08:44→21:14)
[2019-07-05] MEDS: Nystatin Susp 100,000 Unit/ML 5 ML UD Cup PO SCH (08:44)
[2019-07-05] MEDS: amLODIPine 5 MG Tab PO SCH (08:44)
[2019-07-05] MEDS: Polyethylene Glycol 3350 Powder 17 GM Packet PO SCH (08:45)
[2019-07-05] MEDS: Aluminum Hydroxide/Magnesium Hydroxide Susp 30 ML Cup PO SCH ×3 (08:45→21:12)
[2019-07-05] MEDS: Nicotine 14 MG/24 Hr Patch TOP SCH (08:48)
--- NOTE | 2019-07-05 09:51 | PN ---
DATE SEEN: 07/04/2019 HISTORY: Ely is a 74-year-old woman who is in swing bed, recuperating from a left AKA due to severe peripheral vascular disease. In addition to that, she had a non-STEMI while in [place], treated medically. Ely had been having a burning chest discomfort. This was relieved remarkably by a GI cocktail yesterday and she was started on p.r.n. Maalox, as well as nystatin suspension, for suspected monilial esophagitis. She is examined this morning in her bed. She is in good spirits. Her pain is improved. She had one episode of complaining of burning chest pain during the night, but does report that she has pain in the anterior chest when she changes body position, especially going from lying to sitting and vice versa. PHYSICAL EXAMINATION: GENERAL: She is alert. As mentioned, she is in better spirits this morning. She is a fairly good historian. VITAL SIGNS: Blood pressure 120/70, pulse 91, respirations 20, O2 saturation 94% on 2 L nasal cannula. HEENT: Throat is clear. Mouth dry. LUNGS: Have distant breath sounds, but air movement is heard to the bases without consolidation. HEART: Regular without murmur or gallop. ABDOMEN: Active bowel sounds. Soft. No significant tenderness. No mass, guarding, or rebound. EXTREMITIES: Show a clean, dry callused area at the tip of the right great toe. The left AKA stump shows an area of ecchymosis and dull erythema medially and very clean incision laterally. ASSESSMENT: 1. Peripheral vascular disease, status post above knee amputation, recuperating satisfactorily. 2. Severe chronic obstructive pulmonary disease with history of continued heavy smoking. 3. Rheumatoid arthritis and vasculitis, now on long-term prednisone. 4. Osteoporosis with thoracic compression fracture, indeterminate age. 5. Hypothyroidism. 6. Suspected monilial esophagitis. PLAN: She has tolerated this switch from OxyContin to MS Contin. We will continue her nystatin suspension, p.r.n. Maalox, supplemental oxycodone, and her 3 times a week Bactrim. Plan routine cares and orthopedic followup as previously planned. We will continue to provide palliative care measures for Ely's apparent underlying COPD, coronary artery disease, etc. /[id number] SRINI/CAROLINE
[2019-07-05] MEDS: predniSONE 5 MG Tab PO SCH (09:58)
--- NOTE | 2019-07-05 10:33 | PN ---
DATE SEEN: 07/05/2019 HISTORY: Ely is a 74-year-old woman with a history of rheumatoid arthritis, vasculitis, COPD, smoking, steroid dependent and long-term steroid use. She has severe peripheral vascular disease and underwent AKA at [place] with discharge to swing bed at [place], here for recuperation. She has been improving slowly. Her biggest complaints have been pain including a burning pain in the anterior chest and improving discomfort in the stump. PHYSICAL EXAMINATION: GENERAL: She is alert and comfortable. She is in good spirits today. VITAL SIGNS: Blood pressure 118/66, pulse 78 and regular, O2 saturation 98% on 2 L nasal cannula oxygen. She is afebrile. SKIN: Shows no rash. The stump incision is very clean and healing in lateral one-half. The medial one-half is ecchymotic with slight blisters at the edges. No purulence. No drainage. No bright erythema and the discomfort is steadily improving. LUNGS: Have distant breath sounds. No consolidation. HEART: Regular without murmur or gallop. ABDOMEN: Soft and nontender. EXTREMITIES: Right lower extremity reveals no edema. ASSESSMENT: 1. Severe peripheral vascular disease, status post left hbzbk-ckwv-qyldtreasq, improving. 2. Chronic obstructive pulmonary disease. 3. History of vasculitis. 4. Rheumatoid arthritis. 5. Osteoporosis with thoracic compression fracture. 6. Suspected monilial esophagitis, improving. PLAN: We will continue her current cares, medications. Her pain control appears adequate. She is exhibiting no new signs of infection. Anticipate steady improvement in her stump maturation. Rabia may stay in for another week yet. /[id number] RO/MODL
[2019-07-06] MEDS: Levothyroxine 100 MCG Tab PO SCH (05:43)
[2019-07-06] MEDS: Pantoprazole 40 MG Tab.CR PO SCH (05:43)
[2019-07-06] MEDS: Morphine 30 MG Tab.ER PO SCH (05:43)
[2019-07-06] MEDS: Aspirin 81 MG Tab.EC PO SCH (08:30)
[2019-07-06] MEDS: Polyethylene Glycol 3350 Powder 17 GM Packet PO SCH (08:30)
[2019-07-06] MEDS: Aluminum Hydroxide/Magnesium Hydroxide Susp 30 ML Cup PO SCH ×3 (08:30→20:43)
[2019-07-06] MEDS: Nicotine 14 MG/24 Hr Patch TOP SCH (08:30)
[2019-07-06] MEDS: Carboxymethylcellulose 0.5%/Glycerin 0.9% Ophth Soln 15 ML Bottle EYEBOTH SCH ×2 (08:31→20:41)
[2019-07-06] MEDS: predniSONE 5 MG Tab PO SCH (08:31)
[2019-07-06] MEDS: Gabapentin 400 MG Cap PO SCH ×3 (08:31→20:39)
[2019-07-06] MEDS: amLODIPine 5 MG Tab PO SCH (08:31)
[2019-07-06] MEDS: Labetalol 200 MG Tab PO SCH ×2 (08:31→20:40)
[2019-07-06] MEDS: Acetaminophen 500 MG Tab PO SCH ×3 (08:32→20:41)
[2019-07-06] MEDS: Multivitamin Tab PO SCH (08:32)
[2019-07-06] MEDS: Acetaminophen/oxyCODONE 325-5 MG Tab PO PRN ×2 (10:25→18:10)
[2019-07-06] MEDS: Morphine 15 MG Tab.ER PO SCH ×2 (13:52→22:02)
--- NOTE | 2019-07-06 14:04 | PN ---
DATE SEEN: 07/06/2019 HISTORY: Ely is a 74-year-old, admitted to swing bed after left AKA. Her stay has been complicated by pain from thoracic compression fracture with possible occult left rib fractures, chronic obstructive pulmonary disease, and esophagitis. She has completed a course of nystatin oral suspension. Her esophageal subxiphoid area burning seems to be gone. She also states she does not need as much narcotic for pain and would like to cut down her morphine. She has noted she is having a little bit of swelling at her sock line on the right lower extremity. PHYSICAL EXAMINATION: GENERAL: She is alert and comfortable while examined this morning. VITAL SIGNS: Blood pressure 119/72, pulse 87 and regular, O2 saturation 96% on 1 L nasal cannula oxygen. LUNGS: Have distant breath sounds. No consolidation. HEART: Regular with a systolic murmur. ABDOMEN: Soft and nontender. EXTREMITIES: Left AKA stump clean and healing with ecchymoses on the medial one third with resolving blisters and clean incision on the lateral two thirds. ASSESSMENT: 1. Left below knee amputation secondary to severe peripheral vascular disease. 2. Chronic obstructive pulmonary disease. 3. History of rheumatoid arthritis and vasculitis, on long-term prednisone and Bactrim pneumocystis prophylaxis. 4. Osteoporosis with thoracic compression fracture. 5. Hypertension. PLAN: Because of her trace edema, I will discontinue her amlodipine today. I will also decrease her labetalol by 50%. I will cut down the MS Contin to 15 mg every 8 hours. Continue palliative care measures and stump therapy. She is due for repeat photographs of her vnxkx-mke-dxbq amputation stump sent to her surgeon in 2 days. Anticipate discharge to home when able. /[id number] RO/MODL
[2019-07-07] MEDS: Morphine 15 MG Tab.ER PO SCH ×3 (06:19→21:28)
[2019-07-07] MEDS: Levothyroxine 100 MCG Tab PO SCH (06:19)
[2019-07-07] MEDS: Pantoprazole 40 MG Tab.CR PO SCH (06:19)
[2019-07-07] MEDS: Nicotine 14 MG/24 Hr Patch TOP SCH (08:23)
[2019-07-07] MEDS: Acetaminophen/oxyCODONE 325-5 MG Tab PO PRN ×2 (08:24→16:56)
[2019-07-07] MEDS: Multivitamin Tab PO SCH (08:24)
[2019-07-07] MEDS: Gabapentin 400 MG Cap PO SCH ×3 (08:24→21:28)
[2019-07-07] MEDS: Aluminum Hydroxide/Magnesium Hydroxide Susp 30 ML Cup PO SCH ×3 (08:24→21:28)
[2019-07-07] MEDS: Aspirin 81 MG Tab.EC PO SCH (08:24)
[2019-07-07] MEDS: predniSONE 5 MG Tab PO SCH (08:25)
[2019-07-07] MEDS: Labetalol 200 MG Tab PO SCH ×2 (08:25→21:28)
[2019-07-07] MEDS: Acetaminophen 500 MG Tab PO SCH ×3 (08:25→21:28)
[2019-07-07] MEDS: Polyethylene Glycol 3350 Powder 17 GM Packet PO SCH (08:27)
[2019-07-07] MEDS: Carboxymethylcellulose 0.5%/Glycerin 0.9% Ophth Soln 15 ML Bottle EYEBOTH SCH ×2 (08:27→21:48)
[2019-07-07] MEDS: Sulfamethoxazole/Trimethoprim 800-160 MG Tab PO SCH (08:34)
[2019-07-08] MEDS: Pantoprazole 40 MG Tab.CR PO SCH (05:24)
[2019-07-08] MEDS: Levothyroxine 100 MCG Tab PO SCH (05:24)
[2019-07-08] MEDS: Morphine 15 MG Tab.ER PO SCH ×2 (05:24→20:30)
[2019-07-08] MEDS: Aluminum Hydroxide/Magnesium Hydroxide Susp 30 ML Cup PO SCH (09:13)
[2019-07-08] MEDS: Nicotine 14 MG/24 Hr Patch TOP SCH (09:13)
[2019-07-08] MEDS: Aspirin 81 MG Tab.EC PO SCH (09:13)
[2019-07-08] MEDS: Gabapentin 400 MG Cap PO SCH ×3 (09:13→20:30)
[2019-07-08] MEDS: Acetaminophen 500 MG Tab PO SCH (09:14)
[2019-07-08] MEDS: predniSONE 5 MG Tab PO SCH (09:14)
[2019-07-08] MEDS: Polyethylene Glycol 3350 Powder 17 GM Packet PO SCH (09:14)
[2019-07-08] MEDS: Carboxymethylcellulose 0.5%/Glycerin 0.9% Ophth Soln 15 ML Bottle EYEBOTH SCH ×2 (09:14→20:35)
[2019-07-08] MEDS: Labetalol 200 MG Tab PO SCH ×2 (09:14→20:33)
[2019-07-08] MEDS: Multivitamin Tab PO SCH (09:14)
[2019-07-08] MEDS: Acetaminophen/oxyCODONE 325-5 MG Tab PO PRN ×2 (10:37→17:52)
--- NOTE | 2019-07-08 12:30 | PN ---
DATE SEEN: 07/08/2019 HISTORY: Ely is a 74-year-old woman admitted to swing bed after an above-the - knee amputation done for severe peripheral vascular disease. She also developed relatively severe left-sided chest pain while hospitalized and felt she had a cracked rib. X-ray and CT chest did not document this, but did show a thoracic compression fracture of indeterminate age. Ely also complained of severe subxiphoid area burning. Acute cardiac event was ruled out and she was treated with nystatin suspension for suspected monilial esophagitis, which essentially resolved her burning symptoms. Ely has chronic obstructive pulmonary disease with a history of continued recent smoking. She has had history of rheumatoid arthritis and vasculitis and is on Bactrim Pneumocystis prophylaxis 3 times a week. PHYSICAL EXAMINATION: GENERAL: She was examined in her bed this morning. She is alert and currently comfortable. VITAL SIGNS: Blood pressure 118/62, pulse 82 and regular, respirations normal, O2 saturation 97% on room air. SKIN: Clear without rash. She does have ecchymoses over both forearms. HEENT: Mouth is dry. LUNGS: Clear to the bases with distant breath sounds. HEART: Regular without murmur heard. ABDOMEN: Soft and nontender. EXTREMITIES: Show 1+ edema at the right ankle. No calf swelling or tenderness, and dressing was not removed from her left rdebd-rdf-reyr amputation stump today. ASSESSMENT: 1. Left ldode-lqa-eocu amputation, healing. 2. Chronic severe chronic obstructive pulmonary disease. 3. History of vasculitis, on prednisone. 4. Rheumatoid arthritis. 5. Likely recent thoracic compression fracture. 6. Recent esophagitis, improved. 7. Chronic pain, improved. PLAN: At this time, she would like to get off MS Contin. She would like to go back to oxycodone, so I have decreased her MS Contin to 15 mg at bedtime in the evenings along with oxycodone 1 tablet in the a.m. and every 8 hours p.r.n. We will likely convert to a Percocet 1 b.i.d. with mid day dose on a p.r.n. basis. She is still receiving therapy and we will plan for discharge to home Friday or Friday of next week. /[id number] MARCIO WATKINS
[2019-07-08] MEDS: Acetaminophen 325 MG Tab PO SCH ×2 (14:08→20:31)
[2019-07-09] MEDS: Acetaminophen/oxyCODONE 325-5 MG Tab PO PRN ×3 (03:51→19:45)
[2019-07-09] MEDS: Pantoprazole 40 MG Tab.CR PO SCH (05:09)
[2019-07-09] MEDS: Levothyroxine 100 MCG Tab PO SCH (05:09)
[2019-07-09] MEDS: Aspirin 81 MG Tab.EC PO SCH (08:16)
[2019-07-09] MEDS: Gabapentin 400 MG Cap PO SCH ×3 (08:16→20:42)
[2019-07-09] MEDS: Acetaminophen/oxyCODONE 325-5 MG Tab PO SCH (08:16)
[2019-07-09] MEDS: Carboxymethylcellulose 0.5%/Glycerin 0.9% Ophth Soln 15 ML Bottle EYEBOTH SCH ×2 (08:18→20:43)
[2019-07-09] MEDS: Sulfamethoxazole/Trimethoprim 800-160 MG Tab PO SCH (08:18)
[2019-07-09] MEDS: Multivitamin Tab PO SCH (08:18)
[2019-07-09] MEDS: predniSONE 5 MG Tab PO SCH (08:18)
[2019-07-09] MEDS: Acetaminophen 325 MG Tab PO SCH ×3 (08:19→20:41)
[2019-07-09] MEDS: Nicotine 14 MG/24 Hr Patch TOP SCH (08:20)
[2019-07-09] MEDS: Labetalol 200 MG Tab PO SCH ×2 (08:25→20:41)
[2019-07-09] MEDS: Polyethylene Glycol 3350 Powder 17 GM Packet PO SCH (09:24)
[2019-07-09] MEDS: Morphine 15 MG Tab.ER PO SCH (20:42)
[2019-07-10] MEDS: Pantoprazole 40 MG Tab.CR PO SCH (05:01)
[2019-07-10] MEDS: Levothyroxine 100 MCG Tab PO SCH (05:01)
[2019-07-10] MEDS: Acetaminophen/oxyCODONE 325-5 MG Tab PO PRN ×2 (07:05→19:02)
[2019-07-10] MEDS: Aspirin 81 MG Tab.EC PO SCH (08:50)
[2019-07-10] MEDS: Nicotine 14 MG/24 Hr Patch TOP SCH (08:51)
[2019-07-10] MEDS: Polyethylene Glycol 3350 Powder 17 GM Packet PO SCH (08:52)
[2019-07-10] MEDS: Labetalol 200 MG Tab PO SCH ×2 (08:53→20:29)
[2019-07-10] MEDS: predniSONE 5 MG Tab PO SCH (08:55)
[2019-07-10] MEDS: Multivitamin Tab PO SCH (08:55)
[2019-07-10] MEDS: Carboxymethylcellulose 0.5%/Glycerin 0.9% Ophth Soln 15 ML Bottle EYEBOTH SCH ×2 (08:55→20:36)
[2019-07-10] MEDS: Acetaminophen 325 MG Tab PO SCH ×3 (08:56→20:36)
[2019-07-10] MEDS: Gabapentin 400 MG Cap PO SCH ×3 (09:00→20:36)
--- NOTE | 2019-07-10 10:57 | PCM.PN ---
- General Info Date of Service: 07/10/19 Admission Dx/Problem (Free Text): Called into see patient today for inspection of incision from Left AKA, no warmth or redness but area around medial incision where roberto were removed is black and gaping. patient's pain is controlled, no fevers, no shortness of breath. Working with PT/OT, needs wheelchair at home for ADLs as she cannot use cane or walker for mobility. Normal BMs. - Patient Data Vitals - Most Recent: Last Vital Signs Temp 98.1 F 07/10/19 07:10 Pulse 86 07/10/19 08:53 Resp 18 07/10/19 07:10 BP 160/90 H 07/10/19 08:53 Pulse Ox 96 07/10/19 07:10 Weight - Most Recent: 96 lb 8 oz Med Orders - Current: Current Medications Acetaminophen (Tylenol) 650 mg PO TID [facility] Last Admin: 07/10/19 08:56 Dose: 650 mg Al Hydroxide/Mg Hydroxide (Mag-Al Susp) 30 ml PO Q6H PRN PRN Reason: Dyspepsia Last Admin: 07/03/19 18:15 Dose: 30 ml Aspirin (Halfprin) 81 mg PO DAILY [facility] Last Admin: 07/10/19 08:50 Dose: 81 mg Carboxymethylcellulose (Refresh Optive) 0 ml EYEBOTH BID [facility] Last Admin: 07/10/19 08:55 Dose: 1 drop Gabapentin (Neurontin) 400 mg PO TID [facility] Last Admin: 07/10/19 09:00 Dose: 400 mg Ketotifen Fumarate (Ketotifen 0.025% Ophth Soln) 0 ml EYEBOTH BID PRN PRN Reason: ALLERGIES Labetalol HCl (Normodyne) 50 mg PO BID [facility] Last Admin: 07/10/19 08:53 Dose: 50 mg Levothyroxine Sodium (Synthroid) 100 mcg PO DAILY@0600 [facility] Last Admin: 07/10/19 05:01 Dose: 100 mcg Magnesium Hydroxide (Milk Of Magnesia) 30 ml PO DAILY PRN PRN Reason: Constipation Last Admin: 07/04/19 22:12 Dose: 30 ml Morphine Sulfate (Ms Contin) 15 mg PO BEDTIME [facility] Last Admin: 07/09/19 20:42 Dose: 15 mg Multivitamins/Minerals/Vitamin C (Tab-A-Jose M) 1 tab PO DAILY [facility] Last Admin: 07/10/19 08:55 Dose: 1 tab Nicotine (Habitrol) 14 mg TOP DAILY [facility] Last Admin: 07/10/19 08:51 Dose: 14 mg Nitroglycerin (Nitrostat) 0.4 mg SL Q5M PRN PRN Reason: Chest Pain Last Admin: 07/03/19 10:22 Dose: 0.4 mg Ondansetron HCl (Zofran Odt) 4 mg PO Q6H PRN PRN Reason: Nausea/Vomiting Last Admin: 07/02/19 09:37 Dose: 4 mg Oxycodone/Acetaminophen (Percocet 325-5 Mg) 1 tab PO Q8H PRN PRN Reason: Pain Last Admin: 07/10/19 07:05 Dose: 1 tab Oxycodone/Acetaminophen (Percocet 325-5 Mg) 1 tab PO DAILY [facility] Last Admin: 07/09/19 08:16 Dose: 1 tab Pantoprazole Sodium (Protonix) 40 mg PO DAILY@0600 [facility] Last Admin: 07/10/19 05:01 Dose: 40 mg Polyethylene Glycol (Miralax) 17 gm PO DAILY [facility] Last Admin: 07/10/19 08:52 Dose: 17 gm Prednisone (Prednisone) 5 mg PO DAILY [facility] Last Admin: 07/10/19 08:55 Dose: 5 mg Triamcinolone Acetonide (Triamcinolone Acetonide 0.1% Crm) 0 gm TOP BID PRN PRN Reason: Rash Trimethoprim/Sulfamethoxazole (Septra Ds) 1 tab PO MOWEFR@0900 [facility] Last Admin: 07/09/19 08:18 Dose: 1 tab Discontinued Medications Acetaminophen (Tylenol Extra Strength) 1,000 mg PO TID [facility] Last Admin: 07/08/19 09:14 Dose: 1,000 mg Al Hydroxide/Mg Hydroxide (Mag-Al Susp) 30 ml PO TID [facility] Last Admin: 07/08/19 09:13 Dose: 30 ml Amlodipine Besylate (Norvasc) 10 mg PO DAILY [facility] Last Admin: 07/03/19 08:08 Dose: 10 mg Amlodipine Besylate (Norvasc) 5 mg PO DAILY [facility] Last Admin: 07/06/19 08:31 Dose: 5 mg Carboxymethylcellulose (Refresh Optive) 0 ml EYEBOTH Q4H PRN PRN Reason: Dry Eyes Last Admin: 06/24/19 09:48 Dose: 1 drop Al Hydroxide/Mg Hydroxide 15 (ml/ Lidocaine HCl 15 ml) 0 ml PO ONETIME ONE Stop: 07/03/19 10:24 Last Admin: 07/03/19 10:57 Dose: 45 ml Iopamidol (Isovue-370 (76%)) 100 ml IV . DIRECTED ONE Stop: 06/30/19 11:44 Last Admin: 06/30/19 12:15 Dose: 60 ml Ketotifen Fumarate (Ketotifen 0.025% Ophth Soln) 0 ml EYEBOTH BID [facility] Last Admin: 06/24/19 09:49 Dose: Not Given Labetalol HCl (Normodyne) 100 mg PO BID [facility] Last Admin: 07/06/19 08:31 Dose: 100 mg Losartan Potassium (Cozaar) 100 mg PO DAILY [facility] Last Admin: 07/04/19 08:43 Dose: 100 mg Miscellaneous Information (Remove Patch) 1 ea TRDERM BEDTIME [facility] Last Admin: 06/27/19 21:47 Dose: 1 ea Morphine Sulfate (Ms Contin) 30 mg PO Q8H [facility] Last Admin: 07/06/19 05:43 Dose: 30 mg Morphine Sulfate (Ms Contin) 15 mg PO Q8H [facility] Last Admin: 07/08/19 05:24 Dose: 15 mg Nicotine (Habitrol) 14 mg TRDERM DAILY [facility] Nicotine Polacrilex (Nicorelief) 2 mg CHEW Q1H PRN PRN Reason: tobacco cessation Nicotine Polacrilex (Commit) 2 mg BUCCAL Q1H PRN PRN Reason: tobacco cessation Nystatin (Mycostatin) 5 ml PO TID [facility] Stop: 07/05/19 10:00 Last Admin: 07/05/19 08:44 Dose: 5 ml Oxycodone HCl (Oxycodone) 5 mg PO Q6H PRN PRN Reason: SEVERE PAIN Last Admin: 06/23/19 13:02 Dose: 5 mg Oxycodone HCl (Oxycodone) 10 mg PO Q6H PRN PRN Reason: PAIN Last Admin: 06/28/19 03:26 Dose: 10 mg Oxycodone HCl (Oxycontin) 20 mg PO BID [facility] Last Admin: 07/01/19 09:22 Dose: 20 mg Oxycodone HCl (Oxycontin) 20 mg PO BID@0800,1999 [facility] Last Admin: 07/03/19 08:01 Dose: 20 mg Oxycodone/Acetaminophen (Percocet 325-5 Mg) 1 tab PO Q4H PRN PRN Reason: Pain Last Admin: 07/08/19 10:37 Dose: 1 tab Tramadol HCl (Ultram) 50 mg PO Q4H PRN PRN Reason: Pain Last Admin: 07/02/19 22:05 Dose: 50 mg - Exam General: Alert, Oriented, Cooperative, No Acute Distress Lungs: Clear to Auscultation, Normal Respiratory Effort, Decreased Breath Sounds (throughout, NRD) Cardiovascular: Regular Rate, Regular Rhythm GI/Abdominal Exam: Normal Bowel Sounds, Soft, Non-Tender, No Distention Extremities: No Pedal Edema (RLE) Wound/Incisions: No Drainage, Other (Medial part of incision: dry, blackened along incision(extends out about 1 cm from incision) with pressure does gape about 2-3 mm, slight tenderness, some erythema surrounding blackened area. Central & lateral part of incision: C/D/I roberto present, healing well.). No: Erythema Sepsis Event Note - Evaluation Sepsis Screening Result: No Definite Risk - Focused Exam Vital Signs: Vital Signs Temp Pulse Pulse Resp BP BP Pulse Ox 07/10/19 08:53 86 160/90 H 07/10/19 07:10 98.1 F 78 18 162/79 H 96 07/10/19 03:42 Pulse Ox 07/10/19 08:53 07/10/19 07:10 07/10/19 03:42 95 Date Exam was Performed: 07/10/19 Time Exam was Performed: 10:51 - Problem List & Annotations (1) S/P AKA (above knee amputation) unilateral SNOMED Code(s): 002106639, 55291827, 743555237 Code(s): Z89.619 - ACQUIRED ABSENCE OF UNSPECIFIED LEG ABOVE KNEE Status: Acute Current Visit: Yes Annotation/Comment:: Dr Woods, took pictures using patient's phone and upload to her MyChart and sent to Dr Woods. Concern for necrotic tissue and possible need for debridement. Will continue dressings as directed by Dr Woods until we hear back from him. (2) COPD (chronic obstructive pulmonary disease) SNOMED Code(s): 21444851 Code(s): J44.9 - CHRONIC OBSTRUCTIVE PULMONARY DISEASE, UNSPECIFIED Status : Acute Current Visit: Yes Qualifiers: COPD type: COPD with acute lower respiratory infection Qualified Code(s): J44.0 - Chronic obstructive pulmonary disease with (acute) lower respiratory infection Annotation/Comment:: Ambulating with 0.5L with activity, OT is going to see if can wean prior to planned discharge on Friday. (3) PAD (peripheral artery disease) SNOMED Code(s): 658915625 Code(s): I73.9 - PERIPHERAL VASCULAR DISEASE, UNSPECIFIED Status: Acute Current Visit: Yes (4) Rheumatoid arthritis SNOMED Code(s): 39995850 Code(s): M06.9 - RHEUMATOID ARTHRITIS, UNSPECIFIED Status: Acute Current Visit: Yes (5) Tobacco abuse SNOMED Code(s): 170476842 Code(s): Z72.0 - TOBACCO USE Status: Acute Current Visit: Yes (6) GERD (gastroesophageal reflux disease) SNOMED Code(s): 375120486 Code(s): K21.9 - GASTRO-ESOPHAGEAL REFLUX DISEASE WITHOUT ESOPHAGITIS Status: Chronic Current Visit: No Annotation/Comment:: Continue protonix. (7) Hypertension SNOMED Code(s): 68011658 Code(s): I10 - ESSENTIAL (PRIMARY) HYPERTENSION Status: Chronic Current Visit: No Qualifiers: Hypertension type: essential hypertension Qualified Code(s): I10 - Essential (primary) hypertension Annotation/Comment:: Continue lisinopril. (8) Hypothyroidism SNOMED Code(s): 50019578 Code(s): E03.9 - HYPOTHYROIDISM, UNSPECIFIED Status: Chronic Current Visit: No Qualifiers: Hypothyroidism type: acquired Qualified Code(s): E03.9 - Hypothyroidism, unspecified Annotation/Comment:: Continue levothyroxine. - Problem List Review Problem List Initiated/Reviewed/Updated: Yes - Plan Plan:: 1. Continue current dressing instructions from [place]. Have contacted Dr Woods through patient's MyChart so we could send pictures of the wound. Will adjust treatments based on his recommendations. Patient is unable to use cane or walker for mobility so prescription for 16 inch wide wheelchair sent to [facility]. Also requires wheelchair for ADLs in the home. 2. Wean off oxygen. 3. Plan to discharge on Friday once she gets all home equipment in place, may be delayed depending on what recommendations Dr Woods has in regards to medial side of her stump. Will adjust treatments as necessary.
[2019-07-10] MEDS: Acetaminophen/oxyCODONE 325-5 MG Tab PO SCH (11:01)
[2019-07-10] MEDS: Morphine 15 MG Tab.ER PO SCH (20:35)
[2019-07-11] MEDS: Acetaminophen/oxyCODONE 325-5 MG Tab PO PRN (03:57)
[2019-07-11] MEDS: Pantoprazole 40 MG Tab.CR PO SCH (06:13)
[2019-07-11] MEDS: Levothyroxine 100 MCG Tab PO SCH (06:13)
[2019-07-11] MEDS: Nicotine 14 MG/24 Hr Patch TOP SCH (08:39)
[2019-07-11] MEDS: Polyethylene Glycol 3350 Powder 17 GM Packet PO SCH (08:43)
[2019-07-11] MEDS: Aspirin 81 MG Tab.EC PO SCH (08:43)
[2019-07-11] MEDS: Gabapentin 400 MG Cap PO SCH ×3 (08:44→20:42)
[2019-07-11] MEDS: Labetalol 200 MG Tab PO SCH ×2 (08:44→20:43)
[2019-07-11] MEDS: Carboxymethylcellulose 0.5%/Glycerin 0.9% Ophth Soln 15 ML Bottle EYEBOTH SCH ×2 (08:50→20:43)
[2019-07-11] MEDS: predniSONE 5 MG Tab PO SCH (08:52)
[2019-07-11] MEDS: Multivitamin Tab PO SCH (08:53)
[2019-07-11] MEDS: Acetaminophen 325 MG Tab PO SCH ×2 (08:54→13:56)
[2019-07-11] MEDS: Acetaminophen/oxyCODONE 325-5 MG Tab PO SCH (08:55)
[2019-07-11] MEDS ORDERED: Losartan 100 MG Tab PO SCH (11:30)
[2019-07-11] MEDS ORDERED: Losartan 50 MG Tab PO SCH (11:45)
[2019-07-11] MEDS: Ondansetron 4 MG Tab.DIS PO PRN (13:55)
[2019-07-11] MEDS ORDERED: oxyCODONE 5 MG Tab PO PRN (15:24)
[2019-07-11] MEDS: Ibuprofen 200 MG Tab PO SCH ×2 (16:34→20:41)
[2019-07-11] MEDS: Acetaminophen 500 MG Tab PO SCH ×2 (16:35→20:47)
[2019-07-11] MEDS ORDERED: Acetaminophen 325 MG Tab PO SCH (17:00)
[2019-07-11] MEDS: Morphine 15 MG Tab.ER PO SCH (20:42)
[2019-07-11] MEDS ORDERED: amLODIPine 5 MG Tab PO SCH (21:00)
[2019-07-11] MEDS ORDERED: amLODIPine 10 MG Tab PO SCH (21:00)
[2019-07-11] MEDS ORDERED: Acetaminophen 500 MG Tab PO SCH (21:00)
[2019-07-12] MEDS: Pantoprazole 40 MG Tab.CR PO SCH (05:27)
[2019-07-12] MEDS: Levothyroxine 100 MCG Tab PO SCH (05:27)
[2019-07-12] MEDS: Polyethylene Glycol 3350 Powder 17 GM Packet PO SCH (08:22)
[2019-07-12] MEDS: Sulfamethoxazole/Trimethoprim 800-160 MG Tab PO SCH (08:23)
[2019-07-12] MEDS: Labetalol 200 MG Tab PO SCH (08:24)
[2019-07-12] MEDS: Multivitamin Tab PO SCH (08:24)
[2019-07-12] MEDS: Aspirin 81 MG Tab.EC PO SCH (08:24)
[2019-07-12] MEDS: predniSONE 5 MG Tab PO SCH (08:24)
[2019-07-12] MEDS: Carboxymethylcellulose 0.5%/Glycerin 0.9% Ophth Soln 15 ML Bottle EYEBOTH SCH (08:25)
[2019-07-12 08:28] VITALS: BP 164/89; PULSE 76
[2019-07-12] MEDS: Nicotine 14 MG/24 Hr Patch TOP SCH (08:28)
[2019-07-12] MEDS: Ibuprofen 200 MG Tab PO SCH (08:38)
[2019-07-12] MEDS: Gabapentin 400 MG Cap PO SCH (08:38)
[2019-07-12] MEDS: Acetaminophen 500 MG Tab PO SCH (08:40)
[2019-07-12] MEDS ORDERED: Losartan 100 MG Tab PO SCH (09:00)
[2019-07-12] MEDS ORDERED: oxyCODONE 5 MG Tab PO SCH (09:00)
--- NOTE | 2019-07-12 13:31 | PCM.DCSUM1 ---
Discharge Summary - Hospital Course HPI Initial Comments: 74 y o female with recent BKA (Left) due to PVD. She has a h/o CAD,recent NSTEMI , HTN,tobacco abuse and hypothyroidism. She also has RA on snf steroid therapy. She is being admitted to for pain control,rehab. She does endorse left-sided chest pain that she's had for more than one week, she declined cardiology consultation while at [place]. She was treated with 40 hours of heparin, beta daniela and aspirin. She uses nitroglycerin when necessary. Diagnosis: Stroke: No - Discharge Data Discharge Date: 07/12/19 Discharge Disposition: Home, W Home Health Agency 06 Condition: Good - Referral to Home Health Date of Face to Face Encounter: 07/12/19 Reason for Homebound Status: Left AKA Primary Care Physician: Satya Thornton MD Skilled Need: 16 inch wide wheelchair Rx sent to [facility] . She cannot benefit from a cane or walker for mobility. Needs wheelchair for every day living activities in the home. Daily dressing changes : clean with soap & tap water, rinse, dry and apply Alleyvn dressing and ordnance equipment worker sock. Leave right leg ulcer open to air, apply antibiotic ointment, advised patient not to cover with her sock. - Discharge Diagnosis/Problem(s) (1) S/P AKA (above knee amputation) unilateral SNOMED Code(s): 624976780, [id number], 893539794 ICD Code: Z89.619 - ACQUIRED ABSENCE OF UNSPECIFIED LEG ABOVE KNEE Status: Acute Problem Details: Dr Avila, took pictures using patient's phone and upload to her [employer] and sent to Dr Avila, spoke with him yesterday. Clean with soap & tap water at end of her shower, dry, use current dressing and ordnance equipment worker sock. His office will be calling patient to set up appt to have to come and get necrotic area debrided. (2) COPD (chronic obstructive pulmonary disease) SNOMED Code(s): 28610790 ICD Code: J44.9 - CHRONIC OBSTRUCTIVE PULMONARY DISEASE, UNSPECIFIED Status : Acute Problem Details: Ambulating with 1L with activity, oxygen will be set up with [facility] at her home today. Qualifiers: COPD type: COPD with acute lower respiratory infection Qualified Code(s): J44.0 - Chronic obstructive pulmonary disease with (acute) lower respiratory infection (3) PAD (peripheral artery disease) SNOMED Code(s): 651391190 ICD Code: I73.9 - PERIPHERAL VASCULAR DISEASE, UNSPECIFIED Status: Acute (4) Rheumatoid arthritis SNOMED Code(s): 21561907 ICD Code: M06.9 - RHEUMATOID ARTHRITIS, UNSPECIFIED Status: Acute (5) Tobacco abuse SNOMED Code(s): 289868455 ICD Code: Z72.0 - TOBACCO USE Status: Acute (6) GERD (gastroesophageal reflux disease) SNOMED Code(s): 186202242 ICD Code: K21.9 - GASTRO-ESOPHAGEAL REFLUX DISEASE WITHOUT ESOPHAGITIS Status: Chronic Problem Details: Continue protonix. (7) Hypertension SNOMED Code(s): 57143540 ICD Code: I10 - ESSENTIAL (PRIMARY) HYPERTENSION Status: Chronic Problem Details: Continue lisinopril. Qualifiers: Hypertension type: essential hypertension Qualified Code(s): I10 - Essential (primary) hypertension (8) Hypothyroidism SNOMED Code(s): 01918265 ICD Code: E03.9 - HYPOTHYROIDISM, UNSPECIFIED Status: Chronic Problem Details: Continue levothyroxine. Qualifiers: Hypothyroidism type: acquired Qualified Code(s): E03.9 - Hypothyroidism, unspecified - Patient Summary/Data Consults: Consultations 06/23/19 12:53 OT Evaluation and Treatment [CONS] Routine Please Evaluate and Treat. OT Reason for Consult: ADL's This query below is only for informational purposes and is not editable. Admission Diagnosis/Problem: Rehabilitation therapy PT Evaluation and Treatment [CONS] Routine Please Evaluate and Treat. PT Reason for Consult: Ambulation This query below is only for informational purposes and is not editable. Admission Diagnosis/Problem: Rehabilitation therapy Hospital Course: Ely was admitted for rehab therapy for Left AKA, progressed well with therapies and will go home with Home Health PT/OT. She was having some blackening of the incision on medial side of her Left AKA, pictures were sent to Dr Avila via her [employer], every other staple was removed on lateral/ distal part of incision and all removed on medial side. Repeat pictures sent on Friday as tissue was blackened, starting to have some crusting along the leading edge of incision with gaping. Spoke with Dr Avila on [facility] and he advised cleaning wound with soap & tap water at the end of her shower, rinse, dry and place Alleyvn dressing and ordnance equipment worker sock. His office will be calling her to set up appointment as he states she will need debridement of the necrotic tissue. Her blood pressures were well controlled but started developing RLE edema secondary to Amlodipine which was a new medication started in [place]. She had Labetalol started for medical management of heart attack while in [place], this was decreased when Amlodipine was discontinued and patient's blood pressure were initially controlled but elevated over the last few days of her swing bed stay so Labetalol was increased to 100 mg bid, kept her Losartan at 100 mg daily (increased from her home dose of 50 mg). Pain was controlled with Low dose Ibuprofen 200 mg QID with Tylenol 500 mg QID scheduled and Oxycodone 5 mg daily and 5 mg q8h prn. She was started on MSContin in [place] and will go home with 15 mg at bedtime. She will resume her home dose of Oxycodone 5 mg q6hr prn. 2 day supplies of her new medications sent as she is seeing her PCP Dr Thornton tomorrow. She states she has Oxycodone at home so does not need that. She was hypoxic with activities during her swing bed stay, required 1L with activity, desaturated to 85%. Set up with home oxygen through [facility], they will be meeting her at home today to set up. - Patient Instructions Diet: Regular Diet as Tolerated Showering/Bathing: May Shower Notify Provider of: Fever, Increased Pain, Swelling and Redness, Drainage Other/Special Instructions: Follow up with Dr Thornton July 12 as originally scheduled, it is a virtual visit through your My Chart krystle, select appointments , check in and start visit. Follow up with Dr Avila, his office will be calling you with appointment. - Discharge Plan *PRESCRIPTION DRUG MONITORING PROGRAM REVIEWED*: Yes *COPY OF PRESCRIPTION DRUG MONITORING REPORT IN PATIENT SKY: Yes Prescriptions/Med Rec: Losartan [Cozaar] 100 mg PO DAILY 2 Days #2 tablet Morphine [MS Contin] 15 mg PO BEDTIME 2 Days #2 tab.er Nicotine [Habitrol] 14 mg TOP DAILY 30 Days #1 box Home Medications: Home Meds Carboxymethylcellulos/Glycerin [Refresh Optive] 1 drop EYEBOTH Q4H PRN 07/26/15 [History] Levothyroxine [Synthroid] 100 mcg PO DAILY@0600 10/07/18 [History] Polyethylene Glycol 3350 [MiraLAX] 17 gm PO DAILY 10/07/18 [History] oxyCODONE 5 mg PO Q6H PRN 10/07/18 [History] Aspirin [Halfprin] 81 mg PO DAILY 06/23/19 [History] Gabapentin [Neurontin] 400 mg PO TID 06/23/19 [History] Multivitamin [Daily Jose M] 1 tab PO DAILY 06/23/19 [History] Nitroglycerin [Nitrostat] 0.4 mg SL Q5M PRN 06/23/19 [History] Olopatadine [Pataday 0.2% Ophth Soln] 1 drop EYEBOTH DAILY 06/23/19 [History] Sulfamethoxazole/Trimethoprim [Bactrim Ds Tablet] 1 tab PO MOWEFR@0900 06/23/19 [History] Triamcinolone Acetonide [Triamcinolone Acetonide 0.1% Crm] 1 applic TOP BID PRN 06/23/19 [History] predniSONE [Prednisone] 5 mg PO DAILY 06/23/19 [History] Acetaminophen [Tylenol Extra Strength] 500 mg PO QID #0 07/12/19 [Rx] Ibuprofen [Motrin] 200 mg PO QID tablet 07/12/19 [Rx] Labetalol [Normodyne] 100 mg PO BID 2 Days #4 tab 07/12/19 [Rx] Losartan [Cozaar] 100 mg PO DAILY 2 Days #2 tablet 07/12/19 [Rx] Morphine [MS Contin] 15 mg PO BEDTIME 2 Days #2 tab.er 07/12/19 [Rx] Nicotine [Habitrol] 14 mg TOP DAILY 30 Days #1 box 07/12/19 [Rx] Oxygen Therapy Mode: Nasal Cannula Oxygen Flow Rate (L/min): 1 Maintain SPO2% less than: 92 Maintain SpO2% greater than: 88 Patient Handouts: Fall Prevention in Hospitals, Adult, Leg Amputation, Care After, Venous Thromboembolism Prevention Referrals: Sayta Thornton MD [Primary Care Provider] - - Discharge Summary/Plan Comment DC Time >30 min.: Yes - General Info Date of Service: 07/12/19 Admission Dx/Problem (Free Text: Feels breathing is at baseline. Wants to go home. Wheelchair delivered today. Denies any chest pain, abdominal pain. NO nausea. - Patient Data Vitals - Most Recent: Last Vital Signs Temp 97.5 F 07/12/19 08:15 Pulse 76 07/12/19 08:24 Resp 18 07/12/19 08:15 BP 164/89 H 07/12/19 08:39 Pulse Ox 95 07/12/19 08:15 Weight - Most Recent: 96 lb 8 oz Med Orders - Current: Current Medications Discontinued Medications Acetaminophen (Tylenol Extra Strength) 1,000 mg PO TID [facility] Last Admin: 07/08/19 09:14 Dose: 1,000 mg Acetaminophen (Tylenol) 650 mg PO TID [facility] Last Admin: 07/11/19 13:56 Dose: 650 mg Acetaminophen (Tylenol) 500 mg PO QID [facility] Acetaminophen (Tylenol Extra Strength) 500 mg PO TID [facility] Acetaminophen (Tylenol Extra Strength) 500 mg PO QID [facility] Last Admin: 07/12/19 08:40 Dose: 500 mg Al Hydroxide/Mg Hydroxide (Mag-Al Susp) 30 ml PO Q6H PRN PRN Reason: Dyspepsia Last Admin: 07/03/19 18:15 Dose: 30 ml Al Hydroxide/Mg Hydroxide (Mag-Al Susp) 30 ml PO TID [facility] Last Admin: 07/08/19 09:13 Dose: 30 ml Amlodipine Besylate (Norvasc) 10 mg PO DAILY [facility] Last Admin: 07/03/19 08:08 Dose: 10 mg Amlodipine Besylate (Norvasc) 5 mg PO DAILY [facility] Last Admin: 07/06/19 08:31 Dose: 5 mg Amlodipine Besylate (Norvasc) 10 mg PO BEDTIME [facility] Amlodipine Besylate (Norvasc) 5 mg PO BEDTIME [facility] Aspirin (Halfprin) 81 mg PO DAILY [facility] Last Admin: 07/12/19 08:24 Dose: 81 mg Carboxymethylcellulose (Refresh Optive) 0 ml EYEBOTH Q4H PRN PRN Reason: Dry Eyes Last Admin: 06/24/19 09:48 Dose: 1 drop Carboxymethylcellulose (Refresh Optive) 0 ml EYEBOTH BID [facility] Last Admin: 07/12/19 08:25 Dose: 1 drop Al Hydroxide/Mg Hydroxide 15 (ml/ Lidocaine HCl 15 ml) 0 ml PO ONETIME ONE Stop: 07/03/19 10:24 Last Admin: 07/03/19 10:57 Dose: 45 ml Gabapentin (Neurontin) 400 mg PO TID [facility] Last Admin: 07/12/19 08:38 Dose: 400 mg Ibuprofen (Motrin) 200 mg PO QID [facility] Last Admin: 07/12/19 08:38 Dose: 200 mg Iopamidol (Isovue-370 (76%)) 100 ml IV . DIRECTED ONE Stop: 06/30/19 11:44 Last Admin: 06/30/19 12:15 Dose: 60 ml Ketotifen Fumarate (Ketotifen 0.025% Ophth Soln) 0 ml EYEBOTH BID [facility] Last Admin: 06/24/19 09:49 Dose: Not Given Ketotifen Fumarate (Ketotifen 0.025% Ophth Soln) 0 ml EYEBOTH BID PRN PRN Reason: ALLERGIES Labetalol HCl (Normodyne) 100 mg PO BID [facility] Last Admin: 07/06/19 08:31 Dose: 100 mg Labetalol HCl (Normodyne) 50 mg PO BID [facility] Last Admin: 07/11/19 08:44 Dose: 50 mg Labetalol HCl (Normodyne) 100 mg PO BID [facility] Last Admin: 07/12/19 08:24 Dose: 100 mg Levothyroxine Sodium (Synthroid) 100 mcg PO DAILY@0600 [facility] Last Admin: 07/12/19 05:27 Dose: 100 mcg Losartan Potassium (Cozaar) 100 mg PO DAILY [facility] Last Admin: 07/04/19 08:43 Dose: 100 mg Losartan Potassium (Cozaar) 100 mg PO DAILY [facility] Last Admin: 07/11/19 12:50 Dose: Not Given Losartan Potassium (Cozaar) 100 mg PO DAILY [facility] Last Admin: 07/11/19 11:56 Dose: 100 mg Losartan Potassium (Cozaar) 100 mg PO DAILY [facility] Last Admin: 07/12/19 08:39 Dose: 100 mg Magnesium Hydroxide (Milk Of Magnesia) 30 ml PO DAILY PRN PRN Reason: Constipation Last Admin: 07/04/19 22:12 Dose: 30 ml Miscellaneous Information (Remove Patch) 1 ea TRDERM BEDTIME [facility] Last Admin: 06/27/19 21:47 Dose: 1 ea Morphine Sulfate (Ms Contin) 30 mg PO Q8H [facility] Last Admin: 07/06/19 05:43 Dose: 30 mg Morphine Sulfate (Ms Contin) 15 mg PO Q8H [facility] Last Admin: 07/08/19 05:24 Dose: 15 mg Morphine Sulfate (Ms Contin) 15 mg PO BEDTIME [facility] Last Admin: 07/11/19 20:42 Dose: 15 mg Multivitamins/Minerals/Vitamin C (Tab-A-Jose M) 1 tab PO DAILY [facility] Last Admin: 07/12/19 08:24 Dose: 1 tab Nicotine (Habitrol) 14 mg TOP DAILY [facility] Last Admin: 07/12/19 08:28 Dose: 14 mg Nicotine (Habitrol) 14 mg TRDERM DAILY [facility] Nicotine Polacrilex (Nicorelief) 2 mg CHEW Q1H PRN PRN Reason: tobacco cessation Nicotine Polacrilex (Commit) 2 mg BUCCAL Q1H PRN PRN Reason: tobacco cessation Nitroglycerin (Nitrostat) 0.4 mg SL Q5M PRN PRN Reason: Chest Pain Last Admin: 07/03/19 10:22 Dose: 0.4 mg Nystatin (Mycostatin) 5 ml PO TID [facility] Stop: 07/05/19 10:00 Last Admin: 07/05/19 08:44 Dose: 5 ml Ondansetron HCl (Zofran Odt) 4 mg PO Q6H PRN PRN Reason: Nausea/Vomiting Last Admin: 07/11/19 13:55 Dose: 4 mg Oxycodone HCl (Oxycodone) 5 mg PO Q6H PRN PRN Reason: SEVERE PAIN Last Admin: 06/23/19 13:02 Dose: 5 mg Oxycodone HCl (Oxycodone) 10 mg PO Q6H PRN PRN Reason: PAIN Last Admin: 06/28/19 03:26 Dose: 10 mg Oxycodone HCl (Oxycontin) 20 mg PO BID [facility] Last Admin: 07/01/19 09:22 Dose: 20 mg Oxycodone HCl (Oxycontin) 20 mg PO BID@0800,1999 [facility] Last Admin: 07/03/19 08:01 Dose: 20 mg Oxycodone HCl (Oxycodone) 5 mg PO DAILY [facility] Last Admin: 07/12/19 08:37 Dose: 5 mg Oxycodone HCl (Oxycodone) 5 mg PO Q8H PRN PRN Reason: Pain (moderate 4-6) Last Admin: 07/12/19 05:54 Dose: 5 mg Oxycodone/Acetaminophen (Percocet 325-5 Mg) 1 tab PO Q4H PRN PRN Reason: Pain Last Admin: 07/08/19 10:37 Dose: 1 tab Oxycodone/Acetaminophen (Percocet 325-5 Mg) 1 tab PO Q8H PRN PRN Reason: Pain Last Admin: 07/11/19 03:57 Dose: 1 tab Oxycodone/Acetaminophen (Percocet 325-5 Mg) 1 tab PO DAILY [facility] Last Admin: 07/11/19 08:55 Dose: 1 tab Pantoprazole Sodium (Protonix) 40 mg PO DAILY@0600 [facility] Last Admin: 07/12/19 05:27 Dose: 40 mg Polyethylene Glycol (Miralax) 17 gm PO DAILY [facility] Last Admin: 07/12/19 08:22 Dose: 17 gm Prednisone (Prednisone) 5 mg PO DAILY [facility] Last Admin: 07/12/19 08:24 Dose: 5 mg Tramadol HCl (Ultram) 50 mg PO Q4H PRN PRN Reason: Pain Last Admin: 07/02/19 22:05 Dose: 50 mg Triamcinolone Acetonide (Triamcinolone Acetonide 0.1% Crm) 0 gm TOP BID PRN PRN Reason: Rash Trimethoprim/Sulfamethoxazole (Septra Ds) 1 tab PO MOWEFR@0900 [facility] Last Admin: 07/12/19 08:23 Dose: 1 tab - Exam General: Reports: Alert, Oriented, Cooperative, No Acute Distress, Other ( dressed in street clothes. ) Lungs: Reports: Normal Respiratory Effort, Decreased Breath Sounds, Crackles ( fine). Denies: Wheezing Cardiovascular: Reports: Regular Rate, Regular Rhythm GI/Abdominal Exam: Normal Bowel Sounds, Soft, Non-Tender, No Distention Extremities: No Pedal Edema (RLE, L AKA dressing in place.)
== END 2019-07-12 12:00 | disposition home health service (06) | DRG 560 ==
LOC: FB.MS 11:14
PROVIDERS: ADMIT Family Medicine; ATTEND Family Medicine
DX: Z47.81 Encounter for orthopedic aftercare following surgical amputation (principal); M80.08XA Age-related osteoporosis with current pathological fracture, vertebra(e), initial encounter for fracture; J44.9 Chronic obstructive pulmonary disease, unspecified; F17.210 Nicotine dependence, cigarettes, uncomplicated; I25.10 Atherosclerotic heart disease of native coronary artery without angina pectoris; I10 Essential (primary) hypertension; E03.9 Hypothyroidism, unspecified; M06.9 Rheumatoid arthritis, unspecified; I73.9 Peripheral vascular disease, unspecified; K21.9 Gastro-esophageal reflux disease without esophagitis; H54.7 Unspecified visual loss; E78.00 Pure hypercholesterolemia, unspecified; G89.29 Other chronic pain; K59.09 Other constipation; R07.89 Other chest pain; Z89.512 Acquired absence of left leg below knee; I25.2 Old myocardial infarction; Z79.52 Long term (current) use of systemic steroids; Z79.899 Other long term (current) drug therapy; Z79.82 Long term (current) use of aspirin; Z89.612 Acquired absence of left leg above knee; K20.9 Esophagitis, unspecified
CPT/HCPCS: 36415; 71046; 71275; 80048; 82270; 84484; 85025; 85027; 85045; 94760; 97110-GO; 97110-GP; 97116-GP; 97161-GP; 97165-GO; 97530-GO; 97530-GP; 97535-GO; 97542-GO; A9270-GY; Q9967

== ENCOUNTER 2019-12-04 20:51 | Emergency (ER) | payer MEDICARE, BC ==
[2019-12-04] MEDS ORDERED: Naloxone 0.4 MG/ML SDV IVPUSH STA ×6 (21:02→23:07)
[2019-12-04] MEDS ORDERED: Sodium Chloride 0.9% 10 ML Syringe FLUSH PRN (21:16)
[2019-12-04] MEDS ORDERED: Sodium Chloride 0.9% 500 ML IV ONE (21:18)
--- NOTE | 2019-12-04 21:25 | EDM.PDOC ---
ED HPI GENERAL MEDICAL PROBLEM - General Chief Complaint: General Stated Complaint: CODE 100 Time Seen by Provider: 12/04/19 21:00 Source of Information: Reports: EMS, Family, Old Records History Limitations: Reports: Altered Mental Status (obtunded) - History of Present Illness INITIAL COMMENTS - FREE TEXT/NARRATIVE: 74 yo female with known COPD and reportedly a DNR status was brought in by EMS after being found down with agonal breathing by neighbors. She has very shallow and slow breathing at the scene. Transported by EMS with ventilatory assistance. BP low, but adequate. Not responding en route. Later it became known that she had her oxycodone Rx filled 12/01/19 and this bottle is now empty. Officers report about 90 x 5 mg oxycodone are missing from her bottle based on #112 original filled on 11/30 and taking 4 per day since. 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 (see below) (Ventilatory assistance) - Related Data Allergies Allergy/AdvReac Type Severity Reaction Status Date / Time No Known Allergies Allergy Verified 10/06/18 16:07 Home Meds: Home Meds Carboxymethylcellulos/Glycerin [Refresh Optive] 1 drop EYEBOTH Q4H PRN 07/26/15 [History] Levothyroxine [Synthroid] 100 mcg PO DAILY@0600 10/07/18 [History] Polyethylene Glycol 3350 [MiraLAX] 17 gm PO DAILY 10/07/18 [History] oxyCODONE 5 mg PO Q6H PRN 10/07/18 [History] Aspirin [Halfprin] 81 mg PO DAILY 06/23/19 [History] Gabapentin [Neurontin] 400 mg PO TID 06/23/19 [History] Multivitamin [Daily Jose M] 1 tab PO DAILY 06/23/19 [History] Nitroglycerin [Nitrostat] 0.4 mg SL Q5M PRN 06/23/19 [History] Olopatadine [Pataday 0.2% Ophth Soln] 1 drop EYEBOTH DAILY 06/23/19 [History] Sulfamethoxazole/Trimethoprim [Bactrim Ds Tablet] 1 tab PO MOWEFR@0900 06/23/19 [History] Triamcinolone Acetonide [Triamcinolone Acetonide 0.1% Crm] 1 applic TOP BID PRN 06/23/19 [History] predniSONE [Prednisone] 5 mg PO DAILY 06/23/19 [History] Acetaminophen [Tylenol Extra Strength] 500 mg PO QID #0 07/12/19 [Rx] Ibuprofen [Motrin] 200 mg PO QID tablet 07/12/19 [Rx] Labetalol [Normodyne] 100 mg PO BID 2 Days #4 tab 07/12/19 [Rx] Losartan [Cozaar] 100 mg PO DAILY 2 Days #2 tablet 07/12/19 [Rx] Morphine [MS Contin] 15 mg PO BEDTIME 2 Days #2 tab.er 07/12/19 [Rx] Nicotine [Habitrol] 14 mg TOP DAILY 30 Days #1 box 07/12/19 [Rx] Past Medical History HEENT History: Reports: Cataract, Impaired Vision Cardiovascular History: Reports: High Cholesterol, Hypertension Respiratory History: Reports: SOB, Other (See Below) Other Respiratory History: CURRENTLY NEEDS 2 LITERS OF O2 SINCE SURGERY ON 06/09. MILD SOB WITH ANY ACTIVITY. 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 2 CM X 1.5 CM. VERY SMALL 1 CM X .5 CM JUST BELOW THE ABOVE STATED ONE. PT HAS BLACKENED SMALL AREA TO RIGHT GREAT TOE. PT HAS A AKA ON THE LEFT LEG. - Infectious Disease History Infectious Disease History: Reports: Chicken Pox, Measles, Mumps - Past Surgical History HEENT Surgical History: Reports: Eye Surgery, Other (See Below) Cardiovascular Surgical History: Reports: None Respiratory Surgical History: Reports: None GI Surgical History: Reports: Colonoscopy, EGD Female Surgical History: Reports: Breast Biopsy, Other (See Below) Other Female Surgeries/Procedures: LEFT BREAST BIOPSY PARTIAL HYSTERECTOMY Endocrine Surgical History: Reports: None Musculoskeletal Surgical History: Reports: None, Amputation, Other (See Below) Other Musculoskeletal Surgeries/Procedures:: SEE ABOVE NOTE. Dermatological Surgical History: Reports: Other (See Below) Social & Family History - Family History Family Medical History: Noncontributory - Caffeine Use Caffeine Use: Reports: Coffee ED ROS GENERAL - Review of Systems Review Of Systems: See Below Constitutional: Reports: ROS unobtainable (due to obtundation/comatose) ED EXAM, GENERAL - Physical Exam Exam: See Below Exam Limited By: Altered Mental Status General Appearance: Obtunded, Thin. No: Alert, WD/WN Eye Exam: Bilateral Eye: PERRL (pupils pinpoint on arrival) Ears: Normal External Exam, Normal Canal Ear Exam: Bilateral Ear: Auricle Normal, Canal Normal Nose: Normal Inspection, No Blood Throat/Mouth: Normal Inspection, Normal Lips, Normal Oropharynx, Normal Voice, No Airway Compromise Head: Atraumatic, Normocephalic Neck: Normal Inspection Respiratory/Chest: Decreased Breath Sounds, Other (agonal breathing only on arrival) Cardiovascular: No Edema, Irregularly Irregular GI/Abdominal: Non-Tender, Distended, Other (dull with percussion, passing flatus). No: No Distention Back Exam: Normal Inspection, CVA Tenderness (R) Extremities: Normal Inspection, Other (Right AKA) Neurological: Unresponsive (initially) Skin Exam: Warm, Dry, Intact, Normal Color, No Rash EKG INTERPRETATION EKG Date: 12/04/19 Time: 20:50 Rhythm: A-Fib Rate (Beats/Min): 89 [place]: Normal P-Wave: Absent QRS: Normal ST-T: Normal QT: Prolonged Comparison: NA - No Prior EKG Course - Vital Signs Text/Narrative:: Critical care time estimate 34 min. - Orders/Labs/Meds Orders: Active Orders 24 hr Category Date Time Status Jiménez Catheter Insertion [Insert Urinary Catheter] [OM. Care 12/04/19 21:45 Ordered PC] Q24H Urinary Catheter Assessment [RC] QSHIFT Care 12/04/19 21:36 Active DOPamine/Dextrose 5%-Water [DOPamine in D5W 400 MG/250 Med 12/04/19 23:15 Pending ML] 400 mg in 250 ml IV TITRATE Sodium Chloride 0.9% [Normal Saline] 1,000 ml Med 12/04/19 22:44 Active IV .BOLUS Sodium Chloride 0.9% [Normal Saline] 1,000 ml Med 12/04/19 21:45 Active IV ASDIRECTED Sodium Chloride 0.9% [Saline Flush] Med 12/04/19 21:16 Active 10 ml FLUSH ASDIRECTED PRN Saline Lock Insert [OM.PC] Routine Oth 12/04/19 21:16 Ordered Medication Orders Sodium Chloride (Normal Saline) 1,000 mls @ 125 mls/hr IV ASDIRECTED HERBIE Sodium Chloride (Normal Saline) 1,000 mls @ 1,000 mls/hr IV .BOLUS ONE Stop: 12/04/19 23:43 Dopamine HCl/Dextrose (Dopamine In D5w 400 Mg/250 Ml) 400 mg in 250 mls @ 0 mls/hr IV TITRATE HERBIE; Protocol Sodium Chloride (Saline Flush) 10 ml FLUSH ASDIRECTED PRN PRN Reason: Keep Vein Open Labs: Laboratory Tests 12/04/19 12/04/19 12/04/19 Range/Units 21:10 21:10 21:10 WBC 12.8 H (4.5-12.0) X10-3/uL RBC 3.98 (3.23-5.20) x10(6)uL Hgb 11.0 L (11.5-15.5) g/dL Hct 36.9 (30.0-51.3) % MCV 92.8 (80-96) fL MCH 27.5 L (27.7-33.6) pg MCHC 29.7 L (32.2-35.4) g/dL RDW 14.2 (11.5-15.5) % Plt Count 441 H (125-369) X10(3)uL POC ABG pH (7.35-7.45) pH POC ABG pCO2 (35-48) mmHg POC ABG pO2 (83-108) mmHg POC ABG HCO3 (21-28) mmol/L ABG O2 Sat (Calculated) (94-98) % POC ABG Base Excess (-2-3) mmol/L Mauricio Test O2 Delivery Device Sodium 136 (135-145) mmol/L Potassium 6.0 H D (3.5-5.3) mmol/L Chloride 97 L D (100-110) mmol/L Carbon Dioxide 41 H* (21-32) mmol/L BUN 28 H (7-18) mg/dL Creatinine 0.9 (0.55-1.02) mg/dL Est Cr Clr Drug Dosing TNP Estimated GFR (MDRD) > 60 (>60) BUN/Creatinine Ratio 31.1 H (9-20) Glucose 159 H (80-116) mg/dL Lactic Acid (0.4-2.0) mmol/L Calcium 8.8 (8.6-10.2) mg/dL Troponin I 8.8 (4.0-60.3) pg/mL Urine Color (YELLOW) Urine Appearance (CLEAR) Urine pH (5.0-6.5) Ur Specific [place] (1.010-1.025) Urine Protein (NEGATIVE) mg/dL Urine Glucose (UA) (NORMAL) mg/dL Urine Ketones (NEGATIVE) mg/dL Urine Occult Blood (NEGATIVE) Urine Nitrite (NEGATIVE) Urine Bilirubin (NEGATIVE) Urine Urobilinogen (NEGATIVE) mg/dL Ur Leukocyte Esterase (NEGATIVE) U Hyaline Cast (Auto) (NS) Urine RBC (0-5) Urine WBC (0-5) Ur Squamous Epith Cells (NS,R,O) Urine Bacteria (NS) Acetaminophen (<2) ug/mL 12/04/19 12/04/19 12/04/19 Range/Units 21:10 21:15 22:10 WBC (4.5-12.0) X10-3/uL RBC (3.23-5.20) x10(6)uL Hgb (11.5-15.5) g/dL Hct (30.0-51.3) % MCV (80-96) fL MCH (27.7-33.6) pg MCHC (32.2-35.4) g/dL RDW (11.5-15.5) % Plt Count (125-369) X10(3)uL POC ABG pH 7.2 L* (7.35-7.45) pH POC ABG pCO2 106 H* (35-48) mmHg POC ABG pO2 175 H (83-108) mmHg POC ABG HCO3 38 H (21-28) mmol/L ABG O2 Sat (Calculated) 98.9 H (94-98) % POC ABG Base Excess 10 H (-2-3) mmol/L Mauricio Test TNP O2 Delivery Device Simple mask Sodium (135-145) mmol/L Potassium (3.5-5.3) mmol/L Chloride (100-110) mmol/L Carbon Dioxide (21-32) mmol/L BUN (7-18) mg/dL Creatinine (0.55-1.02) mg/dL Est Cr Clr Drug Dosing Estimated GFR (MDRD) (>60) BUN/Creatinine Ratio (9-20) Glucose (80-116) mg/dL Lactic Acid (0.4-2.0) mmol/L Calcium (8.6-10.2) mg/dL Troponin I (4.0-60.3) pg/mL Urine Color Yellow (YELLOW) Urine Appearance Clear (CLEAR) Urine pH 6.0 (5.0-6.5) Ur Specific [place] 1.015 (1.010-1.025) Urine Protein Trace (NEGATIVE) mg/dL Urine Glucose (UA) Normal (NORMAL) mg/dL Urine Ketones Negative (NEGATIVE) mg/dL Urine Occult Blood Moderate H (NEGATIVE) Urine Nitrite Negative (NEGATIVE) Urine Bilirubin Negative (NEGATIVE) Urine Urobilinogen Normal (NEGATIVE) mg/dL Ur Leukocyte Esterase Negative (NEGATIVE) U Hyaline Cast (Auto) Moderate H (NS) Urine RBC 0-5 (0-5) Urine WBC 0-5 (0-5) Ur Squamous Epith Cells Few H (NS,R,O) Urine Bacteria Few H (NS) Acetaminophen < 2 L (<2) ug/mL 12/04/19 Range/Units 22:25 WBC (4.5-12.0) X10-3/uL RBC (3.23-5.20) x10(6)uL Hgb (11.5-15.5) g/dL Hct (30.0-51.3) % MCV (80-96) fL MCH (27.7-33.6) pg MCHC (32.2-35.4) g/dL RDW (11.5-15.5) % Plt Count (125-369) X10(3)uL POC ABG pH (7.35-7.45) pH POC ABG pCO2 (35-48) mmHg POC ABG pO2 (83-108) mmHg POC ABG HCO3 (21-28) mmol/L ABG O2 Sat (Calculated) (94-98) % POC ABG Base Excess (-2-3) mmol/L Mauricio Test O2 Delivery Device Sodium (135-145) mmol/L Potassium (3.5-5.3) mmol/L Chloride (100-110) mmol/L Carbon Dioxide (21-32) mmol/L BUN (7-18) mg/dL Creatinine (0.55-1.02) mg/dL Est Cr Clr Drug Dosing Estimated GFR (MDRD) (>60) BUN/Creatinine Ratio (9-20) Glucose (80-116) mg/dL Lactic Acid 1.7 (0.4-2.0) mmol/L Calcium (8.6-10.2) mg/dL Troponin I (4.0-60.3) pg/mL Urine Color (YELLOW) Urine Appearance (CLEAR) Urine pH (5.0-6.5) Ur Specific [place] (1.010-1.025) Urine Protein (NEGATIVE) mg/dL Urine Glucose (UA) (NORMAL) mg/dL Urine Ketones (NEGATIVE) mg/dL Urine Occult Blood (NEGATIVE) Urine Nitrite (NEGATIVE) Urine Bilirubin (NEGATIVE) Urine Urobilinogen (NEGATIVE) mg/dL Ur Leukocyte Esterase (NEGATIVE) U Hyaline Cast (Auto) (NS) Urine RBC (0-5) Urine WBC (0-5) Ur Squamous Epith Cells (NS,R,O) Urine Bacteria (NS) Acetaminophen (<2) ug/mL Meds: Medications Generic Name Dose Route Start Last Admin Trade Name Freq PRN Reason Stop Dose Admin Sodium Chloride 1,000 mls @ 125 mls/hr 12/04/19 21:45 Normal Saline IV ASDIRECTED HERBIE Sodium Chloride 1,000 mls @ 1,000 mls/hr 12/04/19 22:44 Normal Saline IV 12/04/19 23:43 .BOLUS ONE Dopamine HCl/Dextrose 400 mg in 250 mls @ 0 mls/hr 12/04/19 23:15 Dopamine In D5w 400 Mg/250 Ml IV TITRATE HERBIE Protocol 2 MCG/KG/MIN Sodium Chloride 10 ml 12/04/19 21:16 Saline Flush FLUSH ASDIRECTED PRN Keep Vein Open Discontinued Medications Generic Name Dose Route Start Last Admin Trade Name Freq PRN Reason Stop Dose Admin Calcium Gluconate 1 gm 09/05/20 21:39 Calcium Gluconate IVPUSH 12/04/19 21:40 ONETIME ONE Sodium Chloride 500 mls @ 1,000 mls/hr 12/04/19 21:18 Normal Saline IV 12/04/19 21:47 .BOLUS ONE Naloxone HCl 0.4 mg 12/04/19 21:02 Narcan IVPUSH 12/04/19 21:03 ONETIME STA Naloxone HCl 0.4 mg 12/04/19 21:18 Narcan IVPUSH 12/04/19 21:19 ONETIME STA Naloxone HCl 0.4 mg 12/04/19 22:16 Narcan IVPUSH 12/04/19 22:17 ONETIME STA Naloxone HCl 0.4 mg 12/04/19 22:30 Narcan IVPUSH 12/04/19 22:31 ONETIME STA Naloxone HCl 0.4 mg 12/04/19 22:49 Narcan IVPUSH 12/04/19 22:50 ONETIME STA Naloxone HCl 0.4 mg 12/04/19 23:07 Narcan IVPUSH 12/04/19 23:08 ONETIME STA - Re-Assessments/Exams Free Text/Narrative Re-Assessment/Exam: 12/04/19 21:31 After 0.4 mg IV Narcan she began to breath more spontaneously and pupils were no longer pinpoint. BP came up. Is responding now, not speaking. Free Text/Narrative Re-Assessment/Exam: 12/04/19 22:01 Requiring periodic dosing of Narcan to maintain alertness/stable vitals. 12/04/19 22:02 Bare Hugger applied for temp about 90F. Calcium gluconate 1 gm given or K+ of 6 Jiménez placed. Oxygen reduced due to high sats of 100% and high CO2 104. Giving 500 ml bolus and 125 ml/h IV NS for dehydration/hyperkalemia. attempted NG placement without success(anesthesia) 12/04/19 22:04 Free Text/Narrative Re-Assessment/Exam: 12/04/19 22:47 Awoke after another dose of Narcan and clearly stated, "I am not supposed to be alive, I am not supposed to be resuscitated". 12/04/19 23:09 Dopamine drip initiated for hypotension. Departure - Departure Time of Disposition: 22:30 Disposition: DC/Tfer to Acute Hospital 02 Condition: Serious Clinical Impression: Hyperkalemia, Suicide attempt Opiate overdose Qualifiers: Encounter type: initial encounter Injury intent: intentional self-harm Qualified Code(s): T40.602A - Poisoning by unspecified narcotics, intentional self-harm, initial encounter Hypothermia Qualifiers: Encounter type: initial encounter Qualified Code(s): T68.XXXA - Hypothermia, initial encounter - Discharge Information *PRESCRIPTION DRUG MONITORING PROGRAM REVIEWED*: Not Applicable *COPY OF PRESCRIPTION DRUG MONITORING REPORT IN PATIENT SKY: Not Applicable Referrals: Satya Thornton MD [Primary Care Provider] - Forms: ED Department Discharge - My Orders Last 24 Hours: My Active Orders 12/04/19 21:16 Sodium Chloride 0.9% [Saline Flush] 10 ml FLUSH ASDIRECTED PRN Saline Lock Insert [OM.PC] Routine 12/04/19 21:36 Urinary Catheter Assessment [RC] QSHIFT 12/04/19 21:45 Jiménez Catheter Insertion [Insert Urinary Catheter] [OM.PC] Q24H Sodium Chloride 0.9% [Normal Saline] 1,000 ml IV ASDIRECTED 12/04/19 22:44 Sodium Chloride 0.9% [Normal Saline] 1,000 ml IV .BOLUS 12/04/19 23:15 DOPamine/Dextrose 5%-Water [DOPamine in D5W 400 MG/250 ML] 400 mg in 250 ml IV TITRATE - Assessment/Plan Last 24 Hours: My Active Orders 12/04/19 21:16 Sodium Chloride 0.9% [Saline Flush] 10 ml FLUSH ASDIRECTED PRN Saline Lock Insert [OM.PC] Routine 12/04/19 21:36 Urinary Catheter Assessment [RC] QSHIFT 12/04/19 21:45 Jiménez Catheter Insertion [Insert Urinary Catheter] [OM.PC] Q24H Sodium Chloride 0.9% [Normal Saline] 1,000 ml IV ASDIRECTED 12/04/19 22:44 Sodium Chloride 0.9% [Normal Saline] 1,000 ml IV .BOLUS 12/04/19 23:15 DOPamine/Dextrose 5%-Water [DOPamine in D5W 400 MG/250 ML] 400 mg in 250 ml IV TITRATE
[2019-12-04 21:29] LABS: PH ARTERIAL,POC 7.2 pH (7.35-7.45)
[2019-12-04 21:30] LABS: PCO2 ARTERIAL,POC 106 mmHg (35-48)
[2019-12-04 21:31] LABS: PO2 ARTERIAL,POC 175 mmHg (83-108)
[2019-12-04] MEDS ORDERED: Calcium Gluconate 10% 1 GM/10 ML SDV IVPUSH ONE (21:39)
[2019-12-04] MEDS ORDERED: Sodium Chloride 0.9% 1,000 ML IV SCH (21:45)
[2019-12-04] MEDS ORDERED: Sodium Chloride 0.9% 1,000 ML IV ONE (22:44)
[2019-12-04] MEDS ORDERED: DOPamine/Dextrose 5%-Water 400 MG/250 ML BAG IV SCH (23:15)
[2019-12-04] MEDS ORDERED: Naloxone 0.4 MG/ML SDV IVPUSH ONE (23:32)
[2019-12-05] MEDS ORDERED: Sodium Chloride 0.9% 1,000 ML IV ONE (00:02)
[2019-12-05] MEDS ORDERED: Naloxone 0.4 MG/ML SDV IVPUSH ONE (00:05)
== END 2019-12-04 23:34 ==
LOC: FB.ED 20:51
DX: T40.602A Poisoning by unspecified narcotics, intentional self-harm, initial encounter (principal); T68.XXXA Hypothermia, initial encounter; E87.5 Hyperkalemia; I48.91 Unspecified atrial fibrillation; R41.82 Altered mental status, unspecified; I10 Essential (primary) hypertension; M19.90 Unspecified osteoarthritis, unspecified site; E03.9 Hypothyroidism, unspecified; Z79.82 Long term (current) use of aspirin; Z79.899 Other long term (current) drug therapy
CPT/HCPCS: 36415; 51702; 80048; 80307; 81001; 83605; 84484; 85027; 93005; 96361; 96365; 96375; 96376; 99285-25; J0610; J1265; J2310; J7030; J7040

== ENCOUNTER 2019-12-13 09:32 | Inpatient (IN) | payer MEDICARE, BC ==
[2019-12-13] MEDS ORDERED: Nitroglycerin 0.4 MG Tab.SL SL PRN (15:17)
[2019-12-13] MEDS ORDERED: Albuterol 0.083% 2.5 MG/3 ML Neb Soln INH PRN (15:17)
[2019-12-13] MEDS ORDERED: Ketotifen 0.025% Ophth Soln 5 ML Bottle EYEBOTH PRN (15:55)
[2019-12-13] MEDS: Acetaminophen 500 MG Tab PO PRN ×2 (16:41→23:51)
[2019-12-13] MEDS: Albuterol/Ipratropium 3.0-0.5 MG/3 ML Neb Soln INH SCH ×2 (16:42→21:17)
--- NOTE | 2019-12-13 19:39 | PCM.HP.2 ---
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 She had Narcan infusion in the ICU, psychiatry increased her Remeron to 30 mg at bedtime and discussed adding SSRI when she follow up as outpatient. She also received a Stress steroid in ICU then tapered down to her home dose of Prednisone 5 mg for her rheumatoid arthritis.History of smoking, hypertension, hypothyroidism, depression. She is on Bactrim DS 1 tab Friday, Friday, Friday for prophylaxis due to chronic steroid use. COPD on X-ray but no record of any PFTs. Home oxygen at 1.5 L. 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 She states that she believes she needs to go to alf, knows she can't go home. DuoNebs q6h scheduled with Albuterol nebs q4h as needed. COVID negative on 12/11. She is a DNR/DNI. Left Lower Leg Pain Score (Numeric/FACES): 9 - Related Data Allergies/Adverse Reactions: Allergies Allergy/AdvReac Type Severity Reaction Status Date / Time hydroxychloroquine Allergy Mild Rash Verified 12/13/19 16:50 [From Plaquenil] Home Medications: Home Meds Carboxymethylcellulos/Glycerin [Refresh Optive] 1 drop EYEBOTH BID 07/26/15 [History] Levothyroxine [Synthroid] 100 mcg PO DAILY@0600 10/07/18 [History] Polyethylene Glycol 3350 [MiraLAX] 17 gm PO DAILY PRN 10/07/18 [History] Multivitamin [Daily Jose M] 1 tab PO DAILY 06/23/19 [History] Nitroglycerin [Nitrostat] 0.4 mg SL Q5M PRN 06/23/19 [History] Olopatadine [Pataday 0.2% Oph Soln] 1 drop EYEBOTH DAILY PRN 06/23/19 [History] Sulfamethoxazole/Trimethoprim [Bactrim Ds Tablet] 1 tab PO MOWEFR@0900 06/23/19 [History] predniSONE [Prednisone] 5 mg PO DAILY 06/23/19 [History] Acetaminophen [Tylenol Extra Strength] 1,000 mg PO Q6H PRN 12/13/19 [History] Albuterol Sulfate 3 ml IH Q4H PRN 12/13/19 [History] Albuterol/Ipratropium [DuoNeb 3.0-0.5 MG/3 ML] 3 ml IH QID 12/13/19 [History] Aspirin [Halfprin] 81 mg PO DAILY 12/13/19 [History] Candesartan Cilexetil 8 mg PO BID 12/13/19 [History] Ibuprofen 600 mg PO Q4H PRN 12/13/19 [History] Magnesium 250 mg PO BID 12/13/19 [History] Mirtazapine 30 mg PO BEDTIME 12/13/19 [History] NaPh,Mb-Db/K Ph,MB-DB [Phos-NaK Powder] 1 packet PO TID 12/13/19 [History] Nicotine Polacrilex [Nicotine Gum] 2 mg BUCCAL Q1H PRN 12/13/19 [History] Nicotine Polacrilex [Nicotine Lozenge] 2 mg BUCCAL Q1H PRN 12/13/19 [History] Nicotine [Habitrol] 14 mg TD DAILY 12/13/19 [History] amLODIPine Besylate [Amlodipine Besylate] 10 mg PO DAILY 12/13/19 [History] carvediloL [Coreg] 12.5 mg PO BID 12/13/19 [History] Past Medical History HEENT History: Reports: Cataract, Impaired Vision Cardiovascular History: Reports: High Cholesterol, Hypertension Respiratory History: Reports: SOB, Other (See Below) Other Respiratory History: CURRENTLY NEEDS 2 LITERS OF O2. MILD SOB WITH ANY ACTIVITY. Gastrointestinal History: Reports: Chronic Constipation RELASTER History: Reports: Musculoskeletal History: Reports: Amputation, Arthritis, Osteoarthritis, RA Other Musculoskeletal History: AKA AMPUTATION ON 06/16/2019 AND PRIOR TO THAT HAD A BKA ON LEFT SIDE ON 06/10/2019 Psychiatric History: Reports: Addiction, Anxiety, Depression, Emotional Problems, Mood Swings, Panic Attack, Suicide Attempt Endocrine/Metabolic History: Reports: Hypothyroidism Dermatologic History: Reports: Other (See Below) Other Dermatologic History: lower right leg is dry. has scab below nail on 2nd toe - Infectious Disease History Infectious Disease History: Reports: None - Past Surgical History HEENT Surgical History: Reports: Cataract Surgery Cardiovascular Surgical History: Reports: None Respiratory Surgical History: Reports: None GI Surgical History: Reports: Colonoscopy, EGD Female Surgical History: Reports: Breast Biopsy, Other (See Below) Other Female Surgeries/Procedures: LEFT BREAST BIOPSY PARTIAL HYSTERECTOMY Endocrine Surgical History: Reports: None Musculoskeletal Surgical History: Reports: None, Amputation, Other (See Below) Other Musculoskeletal Surgeries/Procedures:: SEE ABOVE NOTE. Dermatological Surgical History: Reports: None Social & Family History - Family History Family Medical History: Noncontributory - Tobacco Use Smoking Status *Q: Former Smoker Years of Tobacco use: 50 Packs/Tins Daily: 3 Used Tobacco, but Quit: Yes Month/Year Tobacco Last Used: may 2019 Second Hand Smoke Exposure: No - Caffeine Use Caffeine Use: Reports: Coffee - Recreational Drug Use Recreational Drug Use: No H&P Review of Systems - Review of Systems: Review Of Systems: Comprehensive ROS is negative, except as noted in HPI. Exam - Exam Exam: See Below - Vital Signs Vital Signs: Last Vital Signs Temp 99 F 12/13/19 14:04 Pulse 82 12/13/19 14:04 Resp 20 12/13/19 14:04 BP 124/72 12/13/19 14:04 Pulse Ox 92 L 12/13/19 14:04 Weight: 106 lb 12.8 oz - Exam General: Alert, Oriented, Cooperative HEENT: PERRLA, Conjunctiva Clear, Hearing Intact, Mucosa Moist & [place] Neck: Supple, Trachea Midline. No: Lymphadenopathy Lungs: Clear to Auscultation, Normal Respiratory Effort. No: Wheezing Cardiovascular: Regular Rate, Regular Rhythm GI/Abdominal Exam: Normal Bowel Sounds, Soft, No Distention, Tender (diffuse tenderness). No: Guarding, Rigid, Rebound (Female) Exam: Deferred Rectal (Female) Exam: Other (erythema of sacral area, area of shearing on right buttock; Aleyvn dressing placed.) Extremities: No Pedal Edema (RLE) Peripheral Pulses: 2+: Radial (L), Radial (R) Skin: Other (scab on right 2nd toe, dressing on left AKA stump.) Neurological: Cranial Nerves Intact Sepsis Event Note - Evaluation Sepsis Screening Result: No Definite Risk - Focused Exam Vital Signs: Vital Signs Temp Pulse Resp BP Pulse Ox 12/13/19 14:04 99 F 82 20 124/72 92 L *Q Meaningful Use (ADM) - VTE *Q VTE Mechanical Contraindications *Q: At Risk for Falls - VTE Risk Assess *Q Each Risk Factor Represents 1 Point: History of prior major surgery less than 1 month Total Score 1 Point Risk Factors: 1 Each Risk Factor Represents 2 Points: Age 60 - 74 Years Total Score 2 Point Risk Factors: 2 Each Risk Factor Represents 3 Points: None Total Score 3 Point Risk Factors: 0 Each Risk Factor Represents 5 Points: None Total Score 5 Point Risk Factors: 0 Venous Thromboembolism Risk Factor Score *Q: 3 - Problem List (1) Opiate overdose SNOMED Code(s): 009463295 ICD Code: T40.601A - POISONING BY UNSP NARCOTICS, ACCIDENTAL, INIT Status: Acute Current Visit: No Qualifiers: Encounter type: subsequent encounter Injury intent: intentional self-harm Qualified Code(s): T40.602D - Poisoning by unspecified narcotics, intentional self-harm, subsequent encounter (2) COPD (chronic obstructive pulmonary disease) SNOMED Code(s): 82723213 ICD Code: J44.9 - CHRONIC OBSTRUCTIVE PULMONARY DISEASE, UNSPECIFIED Status: Acute Current Visit: No Problem Details: Home oxygen 1.5L Qualifiers: COPD type: COPD with acute lower respiratory infection Qualified Code(s): J44.0 - Chronic obstructive pulmonary disease with (acute) lower respiratory infection (3) PAD (peripheral artery disease) SNOMED Code(s): 142999453 ICD Code: I73.9 - PERIPHERAL VASCULAR DISEASE, UNSPECIFIED Status: Chronic Current Visit: No (4) Rheumatoid arthritis SNOMED Code(s): 86737559 ICD Code: M06.9 - RHEUMATOID ARTHRITIS, UNSPECIFIED Status: Chronic Current Visit: No (5) S/P AKA (above knee amputation) unilateral SNOMED Code(s): 292342768, 37251700, 900093359 ICD Code: Z89.619 - ACQUIRED ABSENCE OF UNSPECIFIED LEG ABOVE KNEE Status: Chronic Current Visit: No Onset Date: ~07/09/19 (6) Suicide attempt SNOMED Code(s): 14011800 ICD Code: T14.91XA - SUICIDE ATTEMPT, INITIAL ENCOUNTER Status: Acute Current Visit: No (7) Tobacco abuse SNOMED Code(s): 110414045 ICD Code: Z72.0 - TOBACCO USE Status: Acute Current Visit: No (8) GERD (gastroesophageal reflux disease) SNOMED Code(s): 705654091 ICD Code: K21.9 - GASTRO-ESOPHAGEAL REFLUX DISEASE WITHOUT ESOPHAGITIS Status: Chronic Current Visit: No Problem Details: Continue protonix. (9) Hypertension SNOMED Code(s): 27661358 ICD Code: I10 - ESSENTIAL (PRIMARY) HYPERTENSION Status: Chronic Current Visit: No Problem Details: Continue lisinopril. Qualifiers: Hypertension type: essential hypertension Qualified Code(s): I10 - Essential (primary) hypertension (10) Hypothyroidism SNOMED Code(s): 24284612 ICD Code: E03.9 - HYPOTHYROIDISM, UNSPECIFIED Status: Chronic Current Visit: No Problem Details: Continue levothyroxine. Qualifiers: Hypothyroidism type: acquired Qualified Code(s): E03.9 - Hypothyroidism, unspecified Problem List Initiated/Reviewed/Updated: Yes Orders Last 24hrs: Active Orders 24 hr Category Date Time Status Patient Status [ADT] Routine ADT 12/13/19 14:04 Active Height and Weight [RC] WEEKLY Care 12/13/19 14:04 Active Oxygen Therapy [RC] PRN Care 12/13/19 14:04 Active RT Aerosol Therapy [RC] ASDIRECTED Care 12/13/19 15:21 Active Up With Assistance [RC] ASDIRECTED Care 12/13/19 14:04 Active Up to Chair [RC] ASDIRECTED Care 12/13/19 14:04 Active VTE/DVT Education [RC] Per Unit Routine Care 12/13/19 14:04 Active Vital Signs [RC] 08 Care 12/13/19 14:04 Active OT Evaluation and Treatment [CONS] Routine Cons 12/13/19 14:04 Active PT Evaluation and Treatment [CONS] Routine Cons 12/13/19 14:04 Active Regular Diet [DIET] Diet 12/13/19 Dinner Active CREATININE, URINE Routine Lab 12/13/19 15:24 Ordered MAGNESIUM [CHEM] Routine Lab 12/15/19 06:00 Ordered RENAL FUNCTION PANEL,RFP [CHEM] Routine Lab 12/15/19 06:00 Ordered Acetaminophen [Tylenol Extra Strength] Med 12/13/19 15:17 Active 1,000 mg PO Q6H PRN Albuterol [Proventil Neb Soln] Med 12/13/19 15:17 Active 2.5 mg INH Q4H PRN Albuterol/Ipratropium [DuoNeb 3.0-0.5 MG/3 ML] Med 12/13/19 16:00 Active 3 ml INH QIDRT Aspirin [Halfprin] Med 12/14/19 09:00 Active 81 mg PO DAILY Carboxymethylcellulos/Glycerin [Refresh Optive] Med 12/13/19 21:00 Active 0 ml EYEBOTH BID Heparin Sodium Med 12/13/19 21:00 Active 5,000 units SUBCUT Q12H Ibuprofen [Motrin] Med 12/13/19 15:17 Active 600 mg PO Q4H PRN Ketotifen [Ketotifen 0.025% Ophth Soln] Med 12/13/19 15:55 Active 0 ml EYEBOTH BID PRN Levothyroxine [Synthroid] Med 12/14/19 06:00 Active 100 mcg PO DAILY@0600 Losartan [Cozaar] Med 12/14/19 09:00 Active 50 mg PO DAILY Magnesium Oxide Med 12/13/19 21:00 Active 400 mg PO BEDTIME Mirtazapine [Remeron] Med 12/13/19 21:00 Active 30 mg PO BEDTIME Multivitamins [Tab-A-Jose M] Med 12/14/19 09:00 Active 1 tab PO DAILY NaPh,Mb-Db/K Ph,MB-DB [Phos-NaK Powder] Med 12/13/19 21:00 Active 1 each PO TID Nicotine [Habitrol] Med 12/14/19 09:00 Active 14 mg TRDERM DAILY Nitroglycerin [Nitrostat] Med 12/13/19 15:17 Active 0.4 mg SL Q5M PRN Sulfamethoxazole/Trimethoprim [Septra DS] Med 12/15/19 09:00 Active 1 tab PO MOWEFR@0900 amLODIPine [Norvasc] Med 12/14/19 09:00 Active 10 mg PO DAILY carvediloL [Coreg] Med 12/13/19 21:00 Active 12.5 mg PO BID polyethylene glycoL 3350 [MiraLAX] Med 12/13/19 15:17 Active 17 gm PO DAILY PRN predniSONE Med 12/14/19 09:00 Active 5 mg PO DAILY Antiembolic Hose [OM.PC] Per Unit Routine Oth 12/13/19 14:05 Ordered Resuscitation Status Routine Resus Stat 12/13/19 14:04 Ordered Medication Orders Acetaminophen (Tylenol Extra Strength) 1,000 mg PO Q6H PRN PRN Reason: MILD PAIN Last Admin: 12/13/19 16:41 Dose: 1,000 mg Documented by: [email or web address] Albuterol (Proventil Neb Soln) 2.5 mg INH Q4H PRN PRN Reason: Shortness of Breath Albuterol/Ipratropium (Duoneb 3.0-0.5 Mg/3 Ml) 3 ml INH QIDRT HERBIE Last Admin: 12/13/19 16:42 Dose: 3 ml Documented by: ELIZABETH Amlodipine Besylate (Norvasc) 10 mg PO DAILY [facility] Aspirin (Halfprin) 81 mg PO DAILY [facility] Carboxymethylcellulose (Refresh Optive) 0 ml EYEBOTH BID [facility] Carvedilol (Coreg) 12.5 mg PO BID [facility] Heparin Sodium (Porcine) (Heparin Sodium) 5,000 units SUBCUT Q12H [facility]BIE Ibuprofen (Motrin) 600 mg PO Q4H PRN PRN Reason: MILD PAIN Ketotifen Fumarate (Ketotifen 0.025% Ophth Soln) 0 ml EYEBOTH BID PRN PRN Reason: Allergies Levothyroxine Sodium (Synthroid) 100 mcg PO DAILY@0600 [facility] Losartan Potassium (Cozaar) 50 mg PO DAILY [facility] Magnesium Oxide (Magnesium Oxide) 400 mg PO BEDTIME [facility] Stop: 12/17/19 21:01 Mirtazapine (Remeron) 30 mg PO BEDTIME [facility] Multivitamins/Minerals/Vitamin C (Tab-A-Jose M) 1 tab PO DAILY [facility] Nicotine (Habitrol) 14 mg TRDERM DAILY [facility] Nitroglycerin (Nitrostat) 0.4 mg SL Q5M PRN PRN Reason: Chest Pain Polyethylene Glycol (Miralax) 17 gm PO DAILY PRN PRN Reason: Constipation Potassium Phos/Sodium Phos (Phos-Nak Powder) 1 each PO TID [facility] Stop: 12/15/19 14:01 Prednisone (Prednisone) 5 mg PO DAILY [facility] Trimethoprim/Sulfamethoxazole (Septra Ds) 1 tab PO MOWEFR@0900 [facility] Assessment/Plan Comment:: 1. Admit to swing bed for PT/OT and NH placement. 2. Resume home medication. 3. DVT prophylaxis: Heparin 5000 units bid 4. Regular diet. 5. PT/OT consult. 6. COPD: DuoNeb q6h scheduled and Albuterol q4h as needed. 7. DNR/DNI. 8. Discharge planning: NH placement. - Mortality Measure Prognosis:: Good
[2019-12-13] MEDS ORDERED: Enoxaparin 40 MG/0.4 ML Syringe SUBCUT SCH (21:00)
[2019-12-13] MEDS: Carvedilol 12.5 MG Tab PO SCH (21:21)
[2019-12-13] MEDS: Magnesium Oxide 400 MG Tab PO SCH (21:23)
[2019-12-13] MEDS: Heparin Sodium 5,000 Units/ML Vial SUBCUT SCH (21:23)
[2019-12-13] MEDS: Carboxymethylcellulose 0.5%/Glycerin 0.9% Ophth Soln 15 ML Bottle EYEBOTH SCH (21:24)
[2019-12-13] MEDS: Mirtazapine 30 MG Tab PO SCH (21:25)
[2019-12-13] MEDS: Potassium Phosphate,Mb-Db/Sodium Phosphate,Mb-Db Packet PO SCH (21:27)
[2019-12-14] MEDS: Levothyroxine 100 MCG Tab PO SCH (06:19)
[2019-12-14] MEDS: Albuterol/Ipratropium 3.0-0.5 MG/3 ML Neb Soln INH SCH ×3 (06:20→16:00)
[2019-12-14] MEDS: Multivitamin Tab PO SCH (08:56)
[2019-12-14] MEDS: Nicotine 14 MG/24 Hr Patch TRDERM SCH (08:56)
[2019-12-14] MEDS: amLODIPine 10 MG Tab PO SCH (08:56)
[2019-12-14] MEDS: Aspirin 81 MG Tab.EC PO SCH (08:56)
[2019-12-14] MEDS: predniSONE 5 MG Tab PO SCH (08:56)
[2019-12-14] MEDS: Losartan 50 MG Tab PO SCH (08:57)
[2019-12-14] MEDS: Heparin Sodium 5,000 Units/ML Vial SUBCUT SCH ×2 (08:57→20:45)
[2019-12-14] MEDS: Potassium Phosphate,Mb-Db/Sodium Phosphate,Mb-Db Packet PO SCH ×3 (08:57→20:46)
[2019-12-14] MEDS: Carvedilol 12.5 MG Tab PO SCH ×2 (08:57→20:44)
[2019-12-14] MEDS: Carboxymethylcellulose 0.5%/Glycerin 0.9% Ophth Soln 15 ML Bottle EYEBOTH SCH ×2 (08:58→20:46)
[2019-12-14] MEDS: Acetaminophen 500 MG Tab PO PRN ×3 (09:01→22:59)
[2019-12-14] MEDS: Ibuprofen 600 MG Tab PO PRN ×2 (13:10→20:51)
[2019-12-14] MEDS ORDERED: Levalbuterol HCl 1.25 MG/3 ML Neb NEB PRN (16:46)
[2019-12-14] MEDS: busPIRone 5 MG Tab PO PRN ×2 (16:47→20:51)
[2019-12-14] MEDS ORDERED: Albuterol 0.083% 2.5 MG/3 ML Neb Soln NEB PRN (16:57)
[2019-12-14] MEDS ORDERED: Albuterol/Ipratropium 3.0-0.5 MG/3 ML Neb Soln NEB SCH (17:00)
--- NOTE | 2019-12-14 17:01 | PCM.SN.2 ---
- Free Text/Narrative Note: Procedure: Using #11 blade, left stump debrided, good granulation bed, no further eschar present. 5 cm x 5 cm approximate size. Dressing placed per orders in chart.
[2019-12-14] MEDS: Albuterol/Ipratropium 3.0-0.5 MG/3 ML Neb Soln NEB SCH (20:43)
[2019-12-14] MEDS: Magnesium Oxide 400 MG Tab PO SCH (20:46)
[2019-12-14] MEDS: Mirtazapine 30 MG Tab PO SCH (20:47)
[2019-12-14] MEDS ORDERED: Budesonide 0.25 MG/2 ML Neb Susp NEB SCH (21:00)
[2019-12-15] MEDS: Levothyroxine 100 MCG Tab PO SCH (05:07)
[2019-12-15] MEDS: Albuterol/Ipratropium 3.0-0.5 MG/3 ML Neb Soln NEB SCH ×4 (06:44→20:33)
[2019-12-15] MEDS: Acetaminophen 500 MG Tab PO PRN ×2 (06:45→20:47)
[2019-12-15] MEDS: Losartan 50 MG Tab PO SCH (08:22)
[2019-12-15] MEDS: Carvedilol 12.5 MG Tab PO SCH ×2 (08:22→20:45)
[2019-12-15] MEDS: Nicotine 14 MG/24 Hr Patch TRDERM SCH (08:22)
[2019-12-15] MEDS: Potassium Phosphate,Mb-Db/Sodium Phosphate,Mb-Db Packet PO SCH ×2 (08:25→13:32)
[2019-12-15] MEDS: Aspirin 81 MG Tab.EC PO SCH (08:25)
[2019-12-15] MEDS: amLODIPine 10 MG Tab PO SCH (08:25)
[2019-12-15] MEDS: Heparin Sodium 5,000 Units/ML Vial SUBCUT SCH ×2 (08:25→20:36)
[2019-12-15] MEDS: predniSONE 5 MG Tab PO SCH (08:26)
[2019-12-15] MEDS: Carboxymethylcellulose 0.5%/Glycerin 0.9% Ophth Soln 15 ML Bottle EYEBOTH SCH ×2 (08:26→20:37)
[2019-12-15] MEDS: Multivitamin Tab PO SCH (08:26)
[2019-12-15] MEDS: Sulfamethoxazole/Trimethoprim 800-160 MG Tab PO SCH (08:32)
[2019-12-15] MEDS: Ibuprofen 600 MG Tab PO PRN ×3 (08:39→20:47)
[2019-12-15] MEDS: busPIRone 5 MG Tab PO SCH ×3 (11:18→20:36)
[2019-12-15] MEDS: Magnesium Oxide 400 MG Tab PO SCH (20:37)
[2019-12-15] MEDS: Mirtazapine 30 MG Tab PO SCH (20:38)
[2019-12-15] MEDS: Lidocaine 5% 700 MG Patch TRDERM SCH (20:40)
[2019-12-16] MEDS: Levothyroxine 100 MCG Tab PO SCH (05:40)
[2019-12-16] MEDS: Albuterol/Ipratropium 3.0-0.5 MG/3 ML Neb Soln NEB SCH ×4 (06:00→22:53)
[2019-12-16] MEDS: Heparin Sodium 5,000 Units/ML Vial SUBCUT SCH (08:27)
[2019-12-16] MEDS: amLODIPine 10 MG Tab PO SCH (08:27)
[2019-12-16] MEDS: busPIRone 5 MG Tab PO SCH ×3 (08:27→22:54)
[2019-12-16] MEDS: predniSONE 5 MG Tab PO SCH (08:27)
[2019-12-16] MEDS: Aspirin 81 MG Tab.EC PO SCH (08:27)
[2019-12-16] MEDS: Multivitamin Tab PO SCH (08:27)
[2019-12-16] MEDS: Losartan 50 MG Tab PO SCH (08:28)
[2019-12-16] MEDS: Carvedilol 12.5 MG Tab PO SCH ×2 (08:28→22:54)
[2019-12-16] MEDS: Nicotine 14 MG/24 Hr Patch TRDERM SCH (08:29)
[2019-12-16] MEDS: Carboxymethylcellulose 0.5%/Glycerin 0.9% Ophth Soln 15 ML Bottle EYEBOTH SCH ×2 (08:29→22:55)
[2019-12-16] MEDS: Ibuprofen 600 MG Tab PO PRN ×3 (08:32→21:15)
[2019-12-16] MEDS: Acetaminophen 500 MG Tab PO PRN ×2 (10:50→22:54)
[2019-12-16] MEDS: Calcium Carbonate 500 MG Tab.Chew PO PRN ×2 (11:39→22:58)
[2019-12-16] MEDS: Magnesium Oxide 400 MG Tab PO SCH (22:52)
[2019-12-16] MEDS: Lidocaine 5% 700 MG Patch TRDERM SCH (22:53)
[2019-12-16] MEDS: Mirtazapine 30 MG Tab PO SCH (22:54)
[2019-12-17] MEDS: Ibuprofen 600 MG Tab PO PRN ×3 (01:54→17:45)
[2019-12-17] MEDS: Levothyroxine 100 MCG Tab PO SCH (06:58)
[2019-12-17] MEDS: Albuterol/Ipratropium 3.0-0.5 MG/3 ML Neb Soln NEB SCH ×5 (06:58→21:16)
[2019-12-17] MEDS ORDERED: Aspirin 81 MG Tab.Chew PO SCH (09:00)
[2019-12-17] MEDS: busPIRone 5 MG Tab PO SCH ×3 (09:18→20:57)
[2019-12-17] MEDS: Carvedilol 12.5 MG Tab PO SCH ×2 (09:18→21:06)
[2019-12-17] MEDS: Losartan 50 MG Tab PO SCH (09:18)
[2019-12-17] MEDS: Nicotine 14 MG/24 Hr Patch TRDERM SCH (09:19)
[2019-12-17] MEDS: amLODIPine 10 MG Tab PO SCH (09:23)
[2019-12-17] MEDS: Aspirin 81 MG Tab.EC PO SCH (09:23)
[2019-12-17] MEDS: predniSONE 5 MG Tab PO SCH (09:24)
[2019-12-17] MEDS: Carboxymethylcellulose 0.5%/Glycerin 0.9% Ophth Soln 15 ML Bottle EYEBOTH SCH ×2 (09:25→21:00)
[2019-12-17] MEDS: Multivitamin Tab PO SCH (09:26)
[2019-12-17] MEDS: Sulfamethoxazole/Trimethoprim 800-160 MG Tab PO SCH (09:26)
[2019-12-17] MEDS: Acetaminophen 500 MG Tab PO PRN ×2 (09:27→21:09)
[2019-12-17] MEDS: Magnesium Oxide 400 MG Tab PO SCH (20:59)
[2019-12-17] MEDS: Mirtazapine 30 MG Tab PO SCH (21:01)
[2019-12-17] MEDS: Lidocaine 5% 700 MG Patch TRDERM SCH (21:08)
[2019-12-18] MEDS: Ibuprofen 600 MG Tab PO PRN ×5 (01:09→20:47)
[2019-12-18] MEDS: Acetaminophen 500 MG Tab PO PRN ×3 (03:26→23:00)
[2019-12-18] MEDS: Levothyroxine 100 MCG Tab PO SCH (05:20)
[2019-12-18] MEDS: Albuterol/Ipratropium 3.0-0.5 MG/3 ML Neb Soln NEB SCH ×4 (06:10→20:57)
--- NOTE | 2019-12-18 08:36 | PCM.PRNOTE ---
- Free Text/Narrative Note: Asked to assess stump wound at dressing change, no eschar present. Good granulation tissue present, 4.5 cm x 5 cm. 3 Retained sutures present. Using suture scissors, retained sutures x3 were removed without difficulty. Patient tolerated well.
[2019-12-18] MEDS: Nicotine 14 MG/24 Hr Patch TRDERM SCH (09:31)
[2019-12-18] MEDS: Multivitamin Tab PO SCH (09:34)
[2019-12-18] MEDS: Losartan 50 MG Tab PO SCH (09:34)
[2019-12-18] MEDS: busPIRone 5 MG Tab PO SCH ×3 (09:34→20:57)
[2019-12-18] MEDS: amLODIPine 10 MG Tab PO SCH (09:34)
[2019-12-18] MEDS: Carvedilol 12.5 MG Tab PO SCH ×2 (09:35→20:59)
[2019-12-18] MEDS: Aspirin 81 MG Tab.EC PO SCH (09:35)
[2019-12-18] MEDS: predniSONE 5 MG Tab PO SCH (09:35)
[2019-12-18] MEDS: Carboxymethylcellulose 0.5%/Glycerin 0.9% Ophth Soln 15 ML Bottle EYEBOTH SCH ×2 (09:36→20:58)
[2019-12-18] MEDS: Mirtazapine 30 MG Tab PO SCH (20:58)
[2019-12-18] MEDS: Lidocaine 5% 700 MG Patch TRDERM SCH (20:58)
[2019-12-19] MEDS: Ibuprofen 600 MG Tab PO PRN ×4 (04:10→19:55)
[2019-12-19] MEDS: Levothyroxine 100 MCG Tab PO SCH (05:26)
[2019-12-19] MEDS: Acetaminophen 500 MG Tab PO PRN ×3 (05:26→19:55)
[2019-12-19] MEDS: Albuterol/Ipratropium 3.0-0.5 MG/3 ML Neb Soln NEB SCH ×4 (06:23→20:00)
[2019-12-19] MEDS: Nicotine 14 MG/24 Hr Patch TRDERM SCH (08:22)
[2019-12-19] MEDS: Carboxymethylcellulose 0.5%/Glycerin 0.9% Ophth Soln 15 ML Bottle EYEBOTH SCH ×2 (08:30→20:02)
[2019-12-19] MEDS: Losartan 50 MG Tab PO SCH (08:30)
[2019-12-19] MEDS: busPIRone 5 MG Tab PO SCH ×3 (08:30→20:00)
[2019-12-19] MEDS: Multivitamin Tab PO SCH (08:30)
[2019-12-19] MEDS: Carvedilol 12.5 MG Tab PO SCH ×2 (08:31→20:00)
[2019-12-19] MEDS: amLODIPine 10 MG Tab PO SCH (08:32)
[2019-12-19] MEDS: predniSONE 5 MG Tab PO SCH (08:32)
[2019-12-19] MEDS: Aspirin 81 MG Tab.EC PO SCH (08:32)
[2019-12-19] MEDS: Polyethylene Glycol 3350 Powder 17 GM Packet PO PRN (13:09)
[2019-12-19] MEDS: Mirtazapine 30 MG Tab PO SCH (20:00)
[2019-12-19] MEDS: Lidocaine 5% 700 MG Patch TRDERM SCH (20:01)
[2019-12-20] MEDS: Ibuprofen 600 MG Tab PO PRN ×4 (01:02→20:43)
[2019-12-20] MEDS: Levothyroxine 100 MCG Tab PO SCH (06:03)
[2019-12-20] MEDS: Acetaminophen 500 MG Tab PO PRN ×3 (06:03→20:43)
[2019-12-20] MEDS: Albuterol/Ipratropium 3.0-0.5 MG/3 ML Neb Soln NEB SCH ×4 (06:04→20:43)
[2019-12-20] MEDS: amLODIPine 10 MG Tab PO SCH (09:17)
[2019-12-20] MEDS: Nicotine 14 MG/24 Hr Patch TRDERM SCH (09:18)
[2019-12-20] MEDS: busPIRone 5 MG Tab PO SCH ×3 (09:18→20:44)
[2019-12-20] MEDS: predniSONE 5 MG Tab PO SCH (09:18)
[2019-12-20] MEDS: Sulfamethoxazole/Trimethoprim 800-160 MG Tab PO SCH (09:18)
[2019-12-20] MEDS: Carvedilol 12.5 MG Tab PO SCH ×2 (09:18→20:44)
[2019-12-20] MEDS: Losartan 50 MG Tab PO SCH (09:18)
[2019-12-20] MEDS: Multivitamin Tab PO SCH (09:18)
[2019-12-20] MEDS: Aspirin 81 MG Tab.EC PO SCH (09:18)
[2019-12-20] MEDS: Carboxymethylcellulose 0.5%/Glycerin 0.9% Ophth Soln 15 ML Bottle EYEBOTH SCH ×2 (09:19→20:44)
[2019-12-20] MEDS: Polyethylene Glycol 3350 Powder 17 GM Packet PO PRN (11:09)
--- NOTE | 2019-12-20 17:39 | US ---
INDICATION: Acute swelling right calf and foot, Homans positive, question DVT. DUPLEX ULTRASOUND RIGHT LOWER EXTREMITY VEINS: Utilizing 2-D real time, duplex Doppler spectral analysis and color flow imaging, examination of the lower extremity veins, including the common femoral vein, proximal greater saphenous vein, proximal deep femoral vein, proximal femoral vein, mid femoral vein, distal femoral vein, popliteal vein, posterior tibial vein, anterior tibial vein, and peroneal vein, revealed no evidence of deep venous thrombosis or obstruction. Compression views showed no abnormal lack of compression to suggest thrombosis. No evidence of incompetence of the valves was identified. IMPRESSION: Duplex ultrasound, lower extremity veins, shows no evidence of deep venous thrombosis or incompetence. MTDD
[2019-12-20] MEDS: Mirtazapine 30 MG Tab PO SCH (20:45)
[2019-12-20] MEDS: Lidocaine 5% 700 MG Patch TRDERM SCH (20:45)
[2019-12-21] MEDS: Ibuprofen 600 MG Tab PO PRN ×6 (00:44→23:23)
[2019-12-21] MEDS: Levothyroxine 100 MCG Tab PO SCH (05:56)
[2019-12-21] MEDS: Albuterol/Ipratropium 3.0-0.5 MG/3 ML Neb Soln NEB SCH ×4 (06:00→20:08)
[2019-12-21] MEDS: Acetaminophen 500 MG Tab PO PRN ×3 (06:15→20:13)
[2019-12-21] MEDS: busPIRone 5 MG Tab PO SCH ×3 (08:15→20:08)
[2019-12-21] MEDS: amLODIPine 10 MG Tab PO SCH (08:15)
[2019-12-21] MEDS: predniSONE 5 MG Tab PO SCH (08:16)
[2019-12-21] MEDS: Aspirin 81 MG Tab.EC PO SCH (08:16)
[2019-12-21] MEDS: Losartan 50 MG Tab PO SCH (08:16)
[2019-12-21] MEDS: Carvedilol 12.5 MG Tab PO SCH ×2 (08:17→20:09)
[2019-12-21] MEDS: Carboxymethylcellulose 0.5%/Glycerin 0.9% Ophth Soln 15 ML Bottle EYEBOTH SCH ×2 (08:17→20:07)
[2019-12-21] MEDS: Nicotine 14 MG/24 Hr Patch TRDERM SCH (08:17)
[2019-12-21] MEDS: Multivitamin Tab PO SCH (08:18)
--- NOTE | 2019-12-21 10:10 | PCM.SN.2 ---
- Free Text/Narrative Note: S: Asked by PT to assess patient as she had increased edema in right calf and foot which is new from admission. She also has pain when it is touched. O: RIGHT LEG: increased pitting edema 2+ from proximal calf to forefoot, marked changed from last visit, Homans's positive, calf TTP. A: Right calf/foot edema P: Doppler ultrasound to assess for DVT. Patient refused TEDs and ELEAZAR wraps previously and states if no DVT still would not want them on. Keep leg elevated when in bed.
[2019-12-21] MEDS: Polyethylene Glycol 3350 Powder 17 GM Packet PO PRN (10:41)
[2019-12-21] MEDS: Lidocaine 5% 700 MG Patch TRDERM SCH (20:06)
[2019-12-21] MEDS: Mirtazapine 30 MG Tab PO SCH (20:09)
[2019-12-22] MEDS: Acetaminophen 500 MG Tab PO PRN ×3 (02:35→20:48)
[2019-12-22] MEDS: Levothyroxine 100 MCG Tab PO SCH (06:02)
[2019-12-22] MEDS: Albuterol/Ipratropium 3.0-0.5 MG/3 ML Neb Soln NEB SCH ×5 (06:03→20:41)
[2019-12-22] MEDS: Ibuprofen 600 MG Tab PO PRN ×4 (06:20→23:08)
[2019-12-22] MEDS: busPIRone 5 MG Tab PO SCH ×2 (08:00→13:24)
[2019-12-22] MEDS: Nicotine 14 MG/24 Hr Patch TRDERM SCH (08:02)
[2019-12-22] MEDS: Aspirin 81 MG Tab.EC PO SCH (08:06)
[2019-12-22] MEDS: Multivitamin Tab PO SCH (08:07)
[2019-12-22] MEDS: predniSONE 5 MG Tab PO SCH (08:07)
[2019-12-22] MEDS: amLODIPine 10 MG Tab PO SCH (08:13)
[2019-12-22] MEDS: Losartan 50 MG Tab PO SCH (08:14)
[2019-12-22] MEDS: Carvedilol 12.5 MG Tab PO SCH ×2 (08:16→20:34)
[2019-12-22] MEDS: Carboxymethylcellulose 0.5%/Glycerin 0.9% Ophth Soln 15 ML Bottle EYEBOTH SCH ×2 (08:18→20:36)
[2019-12-22] MEDS: Sulfamethoxazole/Trimethoprim 800-160 MG Tab PO SCH (08:26)
[2019-12-22] MEDS: Lidocaine 5% 700 MG Patch TRDERM SCH (20:35)
[2019-12-22] MEDS: Mirtazapine 30 MG Tab PO SCH (20:36)
[2019-12-22] MEDS ORDERED: busPIRone 5 MG Tab PO SCH (21:00)
[2019-12-22] MEDS ORDERED: busPIRone 10 MG Tab PO SCH (21:00)
[2019-12-23] MEDS: Levothyroxine 100 MCG Tab PO SCH (05:50)
[2019-12-23] MEDS: Ibuprofen 600 MG Tab PO PRN (05:55)
[2019-12-23] MEDS: Albuterol/Ipratropium 3.0-0.5 MG/3 ML Neb Soln NEB SCH ×2 (06:29→10:30)
[2019-12-23 08:20] VITALS: BP 120/66
[2019-12-23] MEDS: Carvedilol 12.5 MG Tab PO SCH (08:25)
[2019-12-23] MEDS: Nicotine 14 MG/24 Hr Patch TRDERM SCH (08:26)
[2019-12-23] MEDS: Losartan 50 MG Tab PO SCH (08:26)
[2019-12-23] MEDS: Aspirin 81 MG Tab.EC PO SCH (08:30)
[2019-12-23] MEDS: amLODIPine 10 MG Tab PO SCH (08:30)
[2019-12-23] MEDS: Carboxymethylcellulose 0.5%/Glycerin 0.9% Ophth Soln 15 ML Bottle EYEBOTH SCH (08:31)
[2019-12-23] MEDS: predniSONE 5 MG Tab PO SCH (08:31)
[2019-12-23] MEDS: Multivitamin Tab PO SCH (08:31)
[2019-12-23] MEDS ORDERED: busPIRone 5 MG Tab PO SCH (09:00)
[2019-12-23] MEDS ORDERED: Tuberculin, PPD 5 Units/0.1 ML 1 ML MDV IDERM ONE (10:35)
--- NOTE | 2019-12-23 10:50 | PCM.DCSUM1 ---
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 She had Narcan infusion in the ICU, psychiatry increased her Remeron to 30 mg at bedtime and discussed adding SSRI when she follow up as outpatient. She also received a Stress steroid in ICU then tapered down to her home dose of Prednisone 5 mg for her rheumatoid arthritis.History of smoking, hypertension, hypothyroidism, depression. She is on Bactrim DS 1 tab Friday, Friday, Friday for prophylaxis due to chronic steroid use. COPD on X-ray but no record of any PFTs. Home oxygen at 2 L. 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 She states that she believes she needs to go to correction, knows she can't go home. DuoNebs q6h scheduled with Albuterol nebs q4h as needed. COVID negative on 12/11. She is a DNR/DNI. - Discharge Data Discharge Date: 12/23/19 ([facility]) Discharge Disposition: DC/Tfer to SNF 03 Condition: Good - Referral to Home Health Primary Care Physician: Satya Thornton MD - Discharge Diagnosis/Problem(s) (1) S/P AKA (above knee amputation) unilateral SNOMED Code(s): 026681240, 73983341, 171836321 ICD Code: Z89.619 - ACQUIRED ABSENCE OF UNSPECIFIED LEG ABOVE KNEE Status: Chronic Current Visit: Yes Onset Date: ~11/26/19 (2) Opiate overdose SNOMED Code(s): 500146260 ICD Code: T40.601A - POISONING BY UNSP NARCOTICS, ACCIDENTAL, INIT Status: Acute Current Visit: Yes Qualifiers: Encounter type: subsequent encounter Injury intent: intentional self-harm Qualified Code(s): T40.602D - Poisoning by unspecified narcotics, intentional self-harm, subsequent encounter (3) COPD (chronic obstructive pulmonary disease) SNOMED Code(s): 84435025 ICD Code: J44.9 - CHRONIC OBSTRUCTIVE PULMONARY DISEASE, UNSPECIFIED Status: Acute Current Visit: Yes Problem Details: Home oxygen 2L Qualifiers: COPD type: COPD with acute lower respiratory infection Qualified Code(s): J44.0 - Chronic obstructive pulmonary disease with (acute) lower respiratory infection (4) PAD (peripheral artery disease) SNOMED Code(s): 629496159 ICD Code: I73.9 - PERIPHERAL VASCULAR DISEASE, UNSPECIFIED Status: Chronic Current Visit: Yes (5) Rheumatoid arthritis SNOMED Code(s): 19749487 ICD Code: M06.9 - RHEUMATOID ARTHRITIS, UNSPECIFIED Status: Chronic Current Visit: Yes (6) Suicide attempt SNOMED Code(s): 55949442 ICD Code: T14.91XA - SUICIDE ATTEMPT, INITIAL ENCOUNTER Status: Acute Current Visit: No (7) Tobacco abuse SNOMED Code(s): 910985178 ICD Code: Z72.0 - TOBACCO USE Status: Acute Current Visit: No (8) GERD (gastroesophageal reflux disease) SNOMED Code(s): 229972226 ICD Code: K21.9 - GASTRO-ESOPHAGEAL REFLUX DISEASE WITHOUT ESOPHAGITIS Status: Chronic Current Visit: Yes Problem Details: Continue protonix. (9) Hypertension SNOMED Code(s): 72918537 ICD Code: I10 - ESSENTIAL (PRIMARY) HYPERTENSION Status: Chronic Current Visit: Yes Problem Details: Continue lisinopril. Qualifiers: Hypertension type: essential hypertension Qualified Code(s): I10 - Essential (primary) hypertension (10) Hypothyroidism SNOMED Code(s): 80985242 ICD Code: E03.9 - HYPOTHYROIDISM, UNSPECIFIED Status: Chronic Current Visit: Yes Problem Details: Continue levothyroxine. Qualifiers: Hypothyroidism type: acquired Qualified Code(s): E03.9 - Hypothyroidism, unspecified - Patient Summary/Data Consults: Consultations 12/13/19 14:04 OT Evaluation and Treatment [CONS] Routine Please Evaluate and Treat. OT Reason for Consult: ADL's This query below is only for informational purposes and is not editable. PT Evaluation and Treatment [CONS] Routine Please Evaluate and Treat. PT Reason for Consult: Ambulation This query below is only for informational purposes and is not editable. Hospital Course: Swing bed course: working well with PT/OT, received motorized chair yesterday, worked on transfers into and out of the chair. Will have wheelchair for transfers in the room. Had some increased episodes of anxiety to point she was having shortness of breath with them, started Buspar 5 mg tid during stay, stated it did help. Discussed increasing dose to 7.5 mg tid but Ely was concerned that it would make her too drowsy, she is not having any drowsiness with current dose. She does have more anxiety with sleeping, Psychiatry in [place] had increased her Remeron to 30 mg at bedtime. Kept her Buspar dose the same during the day at 5 mg at 900, 1400 and increased dose to 10 mg at bedtime which has helped. She did have episode of right lower leg edema on 12/19, Doppler ultrasound was negative for DVT, she has been doing more foot pumps and having leg elevated when in chair or bed, swelling down at discharge. Her wound dressings have been changed every 3 days for left AKA stump, had debridement on 12/12, and removed retained sutures on 12/16, healing well, good granulation tissue present, measures 5 cm x 5 cm at greatest dimension. Skin tear to right elbow and right forearm were present on admission, has dried blood on right elbow, and steri-strips applied to right forearm prior to discharge for support while it is healing. Allevyn dressing to coccyx area for protection, some erythema but no skin breakdown. Changed her Tylenol and Ibuprofen to lower doses and scheduled every 6 hours, may titrate up as needed. Avoid narcotics for pain as she had recent suicide attempt, opioid overdose. Ely requested her DuoNebs be changed to as needed she feels she does not need them 4 times a day scheduled, this was done at discharge. Tuberculin test ordered on discharge. COVID was negative on 12/11, had no symptoms during stay so was not repeated on discharge. - Patient Instructions Diet: Regular Diet as Tolerated Activity, Other: Up with assistance, motorized scooter Showering/Bathing: July Shower Notify Provider of: Fever, Increased Pain, Drainage, Nausea and/or Vomiting Other/Special Instructions: Follow up with Dr Thornton today at 315 pm as pr eviously scheduled. Follow up with Dr Harris on Friday as previously scheduled. - Discharge Plan *PRESCRIPTION DRUG MONITORING PROGRAM REVIEWED*: Not Applicable *COPY OF PRESCRIPTION DRUG MONITORING REPORT IN PATIENT SKY: Not Applicable Home Medications: Home Meds RX: Levothyroxine [Synthroid] 100 mcg PO DAILY@0600 10/07/18 [History] RX: Polyethylene Glycol 3350 [MiraLAX] 17 gm PO DAILY PRN 10/07/18 [History] RX: Multivitamin [Daily Jose M] 1 tab PO DAILY 06/23/19 [History] RX: Nitroglycerin [Nitrostat] 0.4 mg SL Q5M PRN 06/23/19 [History] RX: Sulfamethoxazole/Trimethoprim [Bactrim Ds Tablet] 1 tab PO MOWEFR@0900 06/23/19 [History] RX: predniSONE [Prednisone] 5 mg PO DAILY 06/23/19 [History] RX: Aspirin [Halfprin] 81 mg PO DAILY 12/13/19 [History] RX: Mirtazapine 30 mg PO BEDTIME 12/13/19 [History] RX: Nicotine Polacrilex [Nicotine Gum] 2 mg BUCCAL Q1H PRN 12/13/19 [History] RX: Nicotine Polacrilex [Nicotine Lozenge] 2 mg BUCCAL Q1H PRN 12/13/19 [History] RX: Nicotine [Habitrol] 14 mg TD DAILY 12/13/19 [History] RX: amLODIPine Besylate [Amlodipine Besylate] 10 mg PO DAILY 12/13/19 [History] RX: carvediloL [Coreg] 12.5 mg PO BID 12/13/19 [History] RX: Acetaminophen [Tylenol Extra Strength] 500 mg PO Q6H 30 Days #120 tablet 12/23/19 [Rx] RX: Albuterol [Proventil Neb Soln] 2.5 mg NEB Q4H PRN neb 12/23/19 [Rx] RX: Albuterol/Ipratropium [DuoNeb 3.0-0.5 MG/3 ML] 3 ml NEB QIDRT PRN 30 Days #1 box 12/23/19 [Rx] RX: Calcium Carbonate [Tums] 500 mg PO Q2H PRN tab.chew 12/23/19 [Rx] RX: Carboxymethylcellulos/Glycerin [Refresh Optive] 0 ml EYEBOTH BID bottle 12/23/19 [Rx] RX: Ibuprofen 200 mg PO Q6HR 30 Days #120 tab 12/23/19 [Rx] RX: Ketotifen [Ketotifen 0.025% Ophth Soln] 0 ml EYEBOTH BID PRN bottle 12/23/19 [Rx] RX: Lidocaine 5% [Lidoderm 5%] 700 mg TRDERM BEDTIME 30 Days #30 patch 12/23/19 [Rx] RX: Losartan [Cozaar] 50 mg PO DAILY tablet 12/23/19 [Rx] RX: Remove Patch 1 ea TRDERM DAILY each 12/23/19 [Rx] RX: busPIRone [Buspar] 5 mg PO BID@0900,1400 30 Days #60 tablet 12/23/19 [Rx] RX: busPIRone [Buspar] 10 mg PO BEDTIME 30 Days #30 tablet 12/23/19 [Rx] Oxygen Therapy Mode: Nasal Cannula Oxygen Flow Rate (L/min): 2 Maintain SPO2% less than: 94 Maintain SpO2% greater than: 88 Referrals: Satya Thornton MD [Primary Care Provider] - - Discharge Summary/Plan Comment DC Time >30 min.: Yes ([facility]) - General Info Date of Service: 12/23/19 Subjective Update: Ely states she slept better last night, had Buspar increased for the evening dose to 10 mg at bedtime. Lidocaine patch is helping with phantom pain at night. Edema is improved. Received her motorized scooter yesterday, worked with OT with it. She is in a better mood today, less anxious about going to the correction. Has appt today with Dr Thornton and appt for Friday with Dr Harris. - Patient Data Vitals - Most Recent: Last Vital Signs Temp 97.5 F 12/23/19 08:00 Pulse 84 12/23/19 08:25 Resp 20 12/23/19 08:00 BP 120/66 12/23/19 08:30 Pulse Ox 93 L 12/23/19 08:00 Weight - Most Recent: 95 lb 6.4 oz Med Orders - Current: Current Medications Acetaminophen (Tylenol Extra Strength) 1,000 mg PO Q6H PRN PRN Reason: MILD PAIN Last Admin: 12/22/19 20:48 Dose: 1,000 mg Documented by: Albuterol (Proventil Neb Soln) 2.5 mg NEB Q4H PRN PRN Reason: Shortness of Breath Albuterol/Ipratropium (Duoneb 3.0-0.5 Mg/3 Ml) 3 ml NEB QIDRT HERBIE Last Admin: 12/23/19 06:29 Dose: 3 ml Documented by: Amlodipine Besylate (Norvasc) 10 mg PO DAILY [facility] Last Admin: 12/23/19 08:30 Dose: 10 mg Documented by: Aspirin (Halfprin) 81 mg PO DAILY [facility] Last Admin: 12/23/19 08:30 Dose: 81 mg Documented by: Buspirone HCl (Buspar) 5 mg PO BID@0900,1400 [facility] Last Admin: 12/23/19 08:25 Dose: 5 mg Documented by: Buspirone HCl (Buspar) 10 mg PO BEDTIME [facility] Last Admin: 12/22/19 20:33 Dose: 10 mg Documented by: Calcium Carbonate/Glycine (Tums) 500 mg PO Q2H PRN PRN Reason: Indigestion Last Admin: 12/16/19 22:58 Dose: 500 mg Documented by: Carboxymethylcellulose (Refresh Optive) 0 ml EYEBOTH BID [facility] Last Admin: 12/23/19 08:31 Dose: 1 drop Documented by: Carvedilol (Coreg) 12.5 mg PO BID [facility] Last Admin: 12/23/19 08:25 Dose: 12.5 mg Documented by: Ibuprofen (Motrin) 600 mg PO Q4H PRN PRN Reason: MILD PAIN Last Admin: 12/23/19 05:55 Dose: 600 mg Documented by: Ketotifen Fumarate (Ketotifen 0.025% [facility] Soln) 0 ml EYEBOTH BID PRN PRN Reason: Allergies Levothyroxine Sodium (Synthroid) 100 mcg PO DAILY@0600 [facility] Last Admin: 12/23/19 05:50 Dose: 100 mcg Documented by: Lidocaine (Lidoderm 5%) 700 mg TRDERM BEDTIME [facility] Last Admin: 12/22/19 20:35 Dose: 700 mg Documented by: Losartan Potassium (Cozaar) 50 mg PO DAILY [facility] Last Admin: 12/23/19 08:26 Dose: 50 mg Documented by: Mirtazapine (Remeron) 30 mg PO BEDTIME [facility] Last Admin: 12/22/19 20:36 Dose: 30 mg Documented by: Miscellaneous Information (Remove Patch) 1 ea TRDERM DAILY [facility] Last Admin: 12/23/19 08:31 Dose: 1 ea Documented by: Multivitamins/Minerals/Vitamin C (Tab-A-Jose M) 1 tab PO DAILY [facility] Last Admin: 12/23/19 08:31 Dose: 1 tab Documented by: Nicotine (Habitrol) 14 mg TRDERM DAILY [facility] Last Admin: 12/23/19 08:26 Dose: 14 mg Documented by: Nitroglycerin (Nitrostat) 0.4 mg SL Q5M PRN PRN Reason: Chest Pain Polyethylene Glycol (Miralax) 17 gm PO DAILY PRN PRN Reason: Constipation Last Admin: 12/21/19 10:41 Dose: 17 gm Documented by: Prednisone (Prednisone) 5 mg PO DAILY [facility] Last Admin: 12/23/19 08:31 Dose: 5 mg Documented by: Trimethoprim/Sulfamethoxazole (Septra Ds) 1 tab PO MOWEFR@0900 [facility] Last Admin: 12/22/19 08:26 Dose: 1 tab Documented by: Discontinued Medications Albuterol (Proventil Neb Soln) 2.5 mg INH Q4H PRN PRN Reason: Shortness of Breath Albuterol/Ipratropium (Duoneb 3.0-0.5 Mg/3 Ml) 3 ml INH QIDRT [facility] Last Admin: 12/14/19 16:00 Dose: 3 ml Documented by: Albuterol/Ipratropium (Duoneb 3.0-0.5 Mg/3 Ml) 3 ml NEB QID [facility] Last Admin: 12/14/19 18:50 Dose: Not Given Documented by: Aspirin (Aspirin) 81 mg PO DAILY [facility] Last Admin: 12/17/19 21:00 Dose: Not Given Documented by: Budesonide (Pulmicort) 0.25 mg NEB BIDRT [facility] Buspirone HCl (Buspar) 5 mg PO TID PRN PRN Reason: Anxiety Last Admin: 12/14/19 20:51 Dose: 5 mg Documented by: Buspirone HCl (Buspar) 5 mg PO TID [facility] Last Admin: 12/22/19 13:24 Dose: 5 mg Documented by: Buspirone HCl (Buspar) 10 mg PO BEDTIME [facility] Heparin Sodium (Porcine) (Heparin Sodium) 5,000 units SUBCUT Q12H [facility] Last Admin: 12/16/19 08:27 Dose: 5,000 units Documented by: Magnesium Oxide (Magnesium Oxide) 400 mg PO BEDTIME [facility] Stop: 12/17/19 21:01 Last Admin: 12/17/19 20:59 Dose: 400 mg Documented by: Potassium Phos/Sodium Phos (Phos-Nak Powder) 1 each PO TID HERBIE Stop: 12/15/19 14:01 Last Admin: 12/15/19 13:32 Dose: 1 packet Documented by: Tuberculin PPD (Aplisol) 5 unit IDERM ONETIME ONE Stop: 12/23/19 10:36 - Exam General: Reports: Alert, Oriented, Cooperative, No Acute Distress Lungs: Reports: Clear to Auscultation, Normal Respiratory Effort, Decreased Breath Sounds (bibasilar). Denies: Crackles, Rales, Wheezing Cardiovascular: Reports: Regular Rate, Regular Rhythm GI/Abdominal Exam: Normal Bowel Sounds, Soft, Non-Tender, No Distention Extremities: No Pedal Edema Wound/Incisions: Reports: Healing Well, No Drainage (Left stump: 5 cm x 5 cm at greatest diameter, improving good granulation tissue along the edges. No fuller rrounding erythema. Coccyx: erythema but no skin breakdown. Right elbow, dried blood will trim up the edges of the steri-strips so they don't pull during her sleep, right forearm: steri-strips to healing skin tear for support.) Psy/Mental Status: Reports: Alert, Normal Affect, Normal Mood *Q Meaningful Use (DIS) - VTE *Q VTE Mechanical Contraindications *Q: At Risk for Falls
[2019-12-23 13:13] VITALS: PULSE 78
== END 2019-12-23 11:00 | DRG 950 ==
LOC: FB.MS 13:37
PROVIDERS: ADMIT Family Medicine; ATTEND Family Medicine
DX: T40.602D Poisoning by unspecified narcotics, intentional self-harm, subsequent encounter (principal); I73.9 Peripheral vascular disease, unspecified; M06.9 Rheumatoid arthritis, unspecified; K21.9 Gastro-esophageal reflux disease without esophagitis; I10 Essential (primary) hypertension; J44.9 Chronic obstructive pulmonary disease, unspecified; E03.9 Hypothyroidism, unspecified; Z20.828 Contact with and (suspected) exposure to other viral communicable diseases; Z66 Do not resuscitate; E78.00 Pure hypercholesterolemia, unspecified; K59.09 Other constipation; M19.90 Unspecified osteoarthritis, unspecified site; F41.9 Anxiety disorder, unspecified; F32.9 Major depressive disorder, single episode, unspecified; F41.0 Panic disorder [episodic paroxysmal anxiety]; R60.0 Localized edema; Z88.8 Allergy status to other drugs, medicaments and biological substances; Z79.890 Hormone replacement therapy; Z79.52 Long term (current) use of systemic steroids; Z79.82 Long term (current) use of aspirin; Z79.899 Other long term (current) drug therapy; Z87.891 Personal history of nicotine dependence; Z89.612 Acquired absence of left leg above knee
CPT/HCPCS: 36415; 80069; 81001; 83735; 86580; 93971-RT; 94640; 97110-GO; 97110-GP; 97161-GP; 97166-GO; 97530-GO; 97530-GP; 97535-GO; 97542-GO; A9270-GY; J1644; J7512; J7620-GY

== ENCOUNTER 2020-02-21 12:51 | Emergency (ER) | payer MEDICARE, BC ==
[2020-02-21] MEDS ORDERED: predniSONE 20 MG Tab PO STA (13:55)
[2020-02-21 16:12] VITALS: BP 167/78; PULSE 93
--- NOTE | 2020-02-21 16:16 | EDM.PDOC ---
ED HPI GENERAL MEDICAL PROBLEM - General Chief Complaint: Respiratory Problem Stated Complaint: RESP DISTRESS Time Seen by Provider: 02/21/20 13:00 Source of Information: Reports: Patient History Limitations: Reports: No Limitations - History of Present Illness INITIAL COMMENTS - FREE TEXT/NARRATIVE: Patient presented to the ED because of increasing dyspnea for 2 days. She has a history of COPD and is on home oxygen. She was hypoxemic in the clinic low 80's but we got high 80's and 90-92 on 2 L. She denies having any fever,chills, but there is increase in coughing productive of greenish phlegm. - Related Data Allergies Allergy/AdvReac Type Severity Reaction Status Date / Time hydroxychloroquine Allergy Mild Rash Verified 12/13/19 16:50 [From Plaquenil] Home Meds: Home Meds Levothyroxine [Synthroid] 100 mcg PO DAILY@0600 10/07/18 [History] Polyethylene Glycol 3350 [MiraLAX] 17 gm PO DAILY PRN 10/07/18 [History] Multivitamin [Daily Jose M] 1 tab PO DAILY 06/23/19 [History] Nitroglycerin [Nitrostat] 0.4 mg SL Q5M PRN 06/23/19 [History] predniSONE [Prednisone] 5 mg PO DAILY 06/23/19 [History] Aspirin [Halfprin] 81 mg PO DAILY 12/13/19 [History] Mirtazapine 30 mg PO BEDTIME 12/13/19 [History] Nicotine [Habitrol] 14 mg TD DAILY 12/13/19 [History] amLODIPine Besylate [Amlodipine Besylate] 10 mg PO DAILY 12/13/19 [History] carvediloL [Coreg] 12.5 mg PO BIDMEALS 12/13/19 [History] Acetaminophen [Tylenol Extra Strength] 500 mg PO Q6H 30 Days #120 tablet 12/23/19 [Rx] Calcium Carbonate [Tums] 500 mg PO Q2H PRN tab.chew 12/23/19 [Rx] Carboxymethylcellulos/Glycerin [Refresh Optive] 0 ml EYEBOTH BID bottle 12/23/19 [Rx] Ketotifen [Ketotifen 0.025% Ophth Soln] 0 ml EYEBOTH BID PRN bottle 12/23/19 [Rx] Losartan [Cozaar] 50 mg PO DAILY tablet 12/23/19 [Rx] busPIRone [Buspar] 5 mg PO BID@0900,1400 30 Days #60 tablet 12/23/19 [Rx] busPIRone [Buspar] 10 mg PO BEDTIME 30 Days #30 tablet 12/23/19 [Rx] Albuterol Sulfate [Proair Hfa] 1 - 2 puff INH Q6H PRN 02/21/20 [History] Azithromycin [Zithromax] 250 mg PO DAILY #6 tablet 02/21/20 [Rx] Ibuprofen 200 mg PO Q6HR PRN 02/21/20 [History] predniSONE [Prednisone] 40 mg PO DAILY #10 tablet 02/21/20 [Rx] Past Medical History HEENT History: Reports: Cataract, Impaired Vision Cardiovascular History: Reports: High Cholesterol, Hypertension Respiratory History: Reports: SOB, Other (See Below) Other Respiratory History: CURRENTLY NEEDS 2 LITERS OF O2. MILD SOB WITH ANY ACTIVITY. 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 has scab below nail on 2nd toe - Infectious Disease History Infectious Disease History: Reports: None - Past Surgical History HEENT Surgical History: Reports: Cataract Surgery Cardiovascular Surgical History: Reports: None Respiratory Surgical History: Reports: None GI Surgical History: Reports: Colonoscopy, EGD Female Surgical History: Reports: Breast Biopsy, Other (See Below) Other Female Surgeries/Procedures: LEFT BREAST BIOPSY PARTIAL HYSTERECTOMY Endocrine Surgical History: Reports: None Musculoskeletal Surgical History: Reports: None, Amputation, Other (See Below) Other Musculoskeletal Surgeries/Procedures:: SEE ABOVE NOTE. Dermatological Surgical History: Reports: None Social & Family History - Family History Family Medical History: No Pertinent Family History - Tobacco Use Tobacco Use Status *Q: Former Tobacco User Years of Tobacco use: 60 Packs/Tins Daily: 0.5 Used Tobacco, but Quit: Yes Month/Year Tobacco Last Used: quit in may - Caffeine Use Caffeine Use: Reports: Coffee - Recreational Drug Use Recreational Drug Use: No ED ROS GENERAL - Review of Systems Review Of Systems: See Below Constitutional: Denies: Fever, Malaise, Weakness HEENT: Reports: No Symptoms Respiratory: Reports: Shortness of Breath, Cough, Sputum Cardiovascular: Reports: No Symptoms Endocrine: Reports: No Symptoms GI/Abdominal: Reports: No Symptoms : Reports: No Symptoms Musculoskeletal: Reports: No Symptoms Skin: Reports: No Symptoms Neurological: Reports: No Symptoms Psychiatric: Reports: No Symptoms Hematologic/Lymphatic: Reports: No Symptoms Immunologic: Reports: No Symptoms ED EXAM, GENERAL - Physical Exam Exam: See Below Exam Limited By: No Limitations General Appearance: Alert, No Apparent Distress Ears: Normal External Exam, Normal Canal, Normal TMs Nose: Normal Inspection, Normal Mucosa Throat/Mouth: Normal Inspection, Normal Lips Head: Atraumatic, Normocephalic Neck: Normal Inspection, Supple, Non-Tender Respiratory/Chest: No Respiratory Distress, Lungs Clear, Normal Breath Sounds Cardiovascular: Normal Peripheral Pulses, Regular Rate, Rhythm, No Edema, No Gallop GI/Abdominal: Normal Bowel Sounds, Soft, Non-Tender, No Organomegaly Course - Vital Signs Text/Narrative:: Labs/EKG/CXR result was discussed with patient Prednisone 40 mg po x1 Last Recorded V/S: Last Vital Signs Temp 36.3 C 02/21/20 12:51 Pulse 93 02/21/20 12:51 Resp 20 02/21/20 12:51 BP 167/78 H 02/21/20 12:51 Pulse Ox 90 L 02/21/20 12:51 - Orders/Labs/Meds Orders: Active Orders 24 hr Category Date Time Status Chest 1V Frontal [CR] Stat Exams 02/21/20 13:52 Taken EKG 12 Lead [EK] Routine Ther 02/21/20 13:52 Ordered Labs: Laboratory Tests 02/21/20 02/21/20 02/21/20 Range/Units 14:10 14:15 14:15 Sodium 141 (135-145) mmol/L Potassium 4.5 (3.5-5.3) mmol/L Chloride 102 (100-110) mmol/L Carbon Dioxide 37 H (21-32) mmol/L BUN 17 (7-18) mg/dL Creatinine 0.5 L (0.55-1.02) mg/dL Est Cr Clr Drug Dosing TNP Estimated GFR (MDRD) > 60 (>60) BUN/Creatinine Ratio 34.0 H (9-20) Glucose 125 H (80-116) mg/dL Calcium 8.8 (8.6-10.2) mg/dL Total Bilirubin 0.2 (0.1-1.3) mg/dL AST 17 (5-25) IU/L ALT 22 (12-36) U/L Alkaline Phosphatase 65 (56-112) IU/L Troponin I 5.8 (4.0-60.3) pg/mL NT-Pro-B Natriuret Pep 243 H (<=125) pg/mL Total Protein 6.6 (6.0-8.0) g/dL Albumin 3.0 L (3.2-4.6) g/dL Globulin 3.6 g/dL Albumin/Globulin Ratio 0.8 SARS-CoV-2 RNA (NICHOLAS) Positive H (NEGATIVE) Meds: Medications Discontinued Medications Generic Name Dose Route Start Last Admin Trade Name Freq PRN Reason Stop Dose Admin Azithromycin 500 mg 02/21/20 16:20 02/21/20 16:25 Zithromax PO 02/21/20 16:21 500 mg NOW STA Administration Prednisone 40 mg 02/21/20 13:55 02/21/20 14:28 Prednisone PO 02/21/20 13:56 40 mg NOW STA Administration Departure - Departure Time of Disposition: 16:20 Disposition: Home, Self-Care 01 Condition: Good Clinical Impression: COVID-19, COPD (chronic obstructive pulmonary disease) - Discharge Information Prescriptions: predniSONE [Prednisone] 40 mg PO DAILY #10 tablet Azithromycin [Zithromax] 250 mg PO DAILY #6 tablet Instructions: Chronic Obstructive Pulmonary Disease Exacerbation, [id number], COVID-19 Frequently Asked Questions Referrals: Satya Thornton MD [Primary Care Provider] - Forms: ED Department Discharge Additional Instructions: Please read discharge instructions on COVID 19 and COPD Increase oral fluids Take prednisone 40 mg daily fpor 5 days Z-joycelyn as directed Take 1 tablet daily of Vitamin C-5oo mg, Vit [id number] Units, Zing 50 mg fo 2 weeks Use your oxygen at 2-4 L per hour Sepsis Event Note (ED) - Focused Exam Vital Signs: Vital Signs Temp Pulse Resp BP Pulse Ox 02/21/20 12:51 36.3 C 93 20 167/78 H 90 L - My Orders Last 24 Hours: My Active Orders 02/21/20 13:52 Chest 1V Frontal [CR] Stat EKG 12 Lead [EK] Routine - Assessment/Plan Last 24 Hours: My Active Orders 02/21/20 13:52 Chest 1V Frontal [CR] Stat EKG 12 Lead [EK] Routine
[2020-02-21] MEDS ORDERED: Azithromycin 500 MG Tab PO STA (16:20)
--- NOTE | 2020-02-22 06:51 | CR ---
INDICATION: Dyspnea. CHEST ONE VIEW: AP portable upright view of the chest 02/21/20 was compared with 06/30/19. Pleuroparenchymal changes are again noted at the left lung base which may be on the basis of recurrent pneumonia and pleuritis and/or fibrosis. Bibasilar pleuroparenchymal changes are actually present with a less prominent appearance on the right compared with the left and more prominent infiltration on the right than on the previous study. On the left there also appears to be more prominent pleuroparenchymal change suggesting at least either progressive pneumonia and pleuritis or pneumonia and pleuritis superimposed on fibrosis. The heart appeared prominent, but not grossly enlarged. The aorta is tortuous with calcification in the arch. Overlying EKG leads are noted. Hyperaeration is noted raising question of obstructive airway disease additionally. No definite evidence of CHF is seen. IMPRESSION: 1. Continued bibasilar pleuroparenchymal changes that are more prominent than on the previous study of 06/30/19 may represent progressive and/or recurrent pneumonia and pleuritis, and/or fibrosis. 2. Hyperaeration suggested raising question of COPD. 3. Probable ASHD. MTDD
== END 2020-02-21 17:00 | disposition home or self-care (01) ==
LOC: FB.ED 12:51
DX: U07.1 COVID-19 (principal); J44.9 Chronic obstructive pulmonary disease, unspecified; I10 Essential (primary) hypertension; M19.90 Unspecified osteoarthritis, unspecified site; F41.9 Anxiety disorder, unspecified; F32.9 Major depressive disorder, single episode, unspecified; E03.9 Hypothyroidism, unspecified; Z87.891 Personal history of nicotine dependence; Z79.82 Long term (current) use of aspirin; Z79.899 Other long term (current) drug therapy; Z88.8 Allergy status to other drugs, medicaments and biological substances
CPT/HCPCS: 36415; 71045; 80053; 83880; 84484; 93005; 99285; A9270; J7512; U0002; 99283